=== PATIENT | male | born 1945 | race Caucasian/White ===

== ENCOUNTER 2020-08-22 13:20 | Outpatient (CLI) | payer MEDICARE, OTHER, SELFPAY ==
--- NOTE | 2020-08-22 13:24 | ECG_ITS ---
Measurements Intervals [place] Rate: 75 P: 7 NV: 232 QRS: -59 QRSD: 80 T: -23 QT: 346 QTc: 387 Interpretive Statements SINUS RHYTHM WITH FIRST DEGREE AV BLOCK CONSIDER RIGHT VENTRICULAR HYPERTROPHY LOW QRS VOLTAGE IN PRECORDIAL LEADS BORDERLINE ST-T WAVE ABNORMALITY- INFERIOR LEADS BASELINE ARTIFACT- I, II, III, AVR, AVL, AVF, V1-V2 ABNORMAL ECG Electronically Signed On 08-22-2020 13:49:29 TELEPHONE SALES AGENT by Danny Oleary D.O.
[2020-08-22 14:07] LABS: Anion Gap 9 mmol/L (8-16); Blood Urea Nitrogen 28 mg/dL (9-20); Calcium 9.7 mg/dL (8.4-10.2); Carbon Dioxide 28 mmol/L (22-30); Chloride 103 mmol/L (98-107); Estimated Glomerular Filt Rate 54; Glucose 133 mg/dL (75-110); Potassium 4.8 mmol/L (3.4-5.0); Sodium 140 mmol/L (137-145)
== END 2020-08-22 13:21 | disposition home or self-care (01) ==
LOC: ANHSURGERY 13:24
PROVIDERS: Anesthesiology; PCP Family Medicine; Visit Provider Urology
DX: Z01.812 Encounter for preprocedural laboratory examination (principal); N40.0 Benign prostatic hyperplasia without lower urinary tract symptoms; Z86.79 Personal history of other diseases of the circulatory system; E11.9 Type 2 diabetes mellitus without complications; I44.0 Atrioventricular block, first degree
CPT/HCPCS: 36415; 80048; 87077; 87086; 87088; 93005

== ENCOUNTER → 2020-08-23 00:57 | Outpatient (CLI) | payer MEDICARE, OTHER, SELFPAY ==
[2020-08-23 19:48] LABS: SARS-CoV-2 RNA PCR Negative
== END ==
PROVIDERS: PCP Family Medicine; Visit Provider Urology
DX: Z01.812 Encounter for preprocedural laboratory examination (principal); Z20.822 Contact with and (suspected) exposure to COVID-19
CPT/HCPCS: C9803; U0003; U0005

== ENCOUNTER 2020-08-27 01:32 | Day surgery (SDC) | payer MEDICARE, OTHER, SELFPAY ==
[2020-08-15 15:11] VITALS: BMI 24.6
[2020-08-27] VITALS (8 sets, daily range): BP systolic 116–164; BP diastolic 69–89; PULSE 53–68; RESP 12–18; TEMP 36.4; O2SAT 98–100
[2020-08-27] MEDS: LACTATED RINGERS 1,000 ML 30 ML IV CONT (12:40)
[2020-08-27 12:44] LABS: Glucose Point of Care 115 (65-105)
[2020-08-27] MEDS: ACETAMINOPHEN 500 MG TABLET 1000 MG PO (12:46)
--- NOTE | 2020-08-27 13:26 | WPDANESEPPF ---
Anes - Initial Pre Proc Eval Procedure: Operation Date: 08/27/20 14:00 Proposed Procedures p Urolift - Aga Medina MD Date/Time: 08/27/20 13:26 Surgeon: Aga Medina MD Pre Op Diagnosis: BPH Patient Data Age: 75 Gender: M Height: 5 ft 10 in Weight: 77.6 kg Last Vital Signs Temp 97.6 F 08/27/20 13:03 Pulse 68 08/27/20 13:03 Resp 18 08/27/20 13:03 BP 116/69 08/27/20 13:03 Pulse Ox 100 08/27/20 13:03 Allergies Allergy/AdvReac Type Severity Reaction Status Date / Time No Known Allergies Allergy Verified 08/27/20 13:00 Home Medications Medication Instructions Recorded Confirmed Type acetaminophen-codeine 1 - 2 tablet PO Q4-6H PRN 08/15/20 08/27/20 History aspirin 325 mg PO DAILY 08/15/20 08/27/20 History atorvastatin 10 mg PO HS 08/15/20 08/27/20 History dutasteride 0.5 mg PO HS 08/15/20 08/27/20 History empagliflozin [Jardiance] 25 mg PO HS 08/15/20 08/27/20 History eszopiclone 3 mg PO HS 08/15/20 08/27/20 History gabapentin 300 mg PO HS 08/15/20 08/27/20 History liraglutide [Victoza 2-Matt] 0.6 mg SUBCUT QAM 08/15/20 08/27/20 History lisinopril 5 mg PO HS 08/15/20 08/27/20 History meclizine 25 mg PO BID PRN 08/15/20 08/27/20 History metformin 1,000 mg PO BID 08/15/20 08/27/20 History metoprolol succinate 25 mg PO HS 08/15/20 08/27/20 History omeprazole 20 mg PO HS 08/15/20 08/27/20 History tamsulosin 0.4 mg PO HS 08/15/20 08/27/20 History testosterone cypionate 200 mg IM [id number] 08/15/20 08/27/20 History tizanidine 4 mg PO BID PRN 08/15/20 08/27/20 History Laboratory Tests 08/27/20 12:40 POC Capillary Glucose 115 mg/dl H mg/dl (65-105) Patient hx anesthesia problems: none Family hx anesthesia problems: none PMFSH Past Medical History Medical History (Updated 08/27/20 @ 13:26 by Vic Prescott MD) Atrial fibrillation Diabetes GERD (gastroesophageal reflux disease) Hyperlipidemia Hypertension Family History Family History (Updated 02/06/16 @ 12:36 by DOCTOR UNKNOWN) Other Diabetes mellitus Family history of malignant neoplasm Social History Social History Smoking status: Never smoker Substance use: never Living arrangements: with family Spiritual care concerns: No Anes - Eval Final PreProcedure Day of Procedure 08/27/20 13:26 Patient weight: overweight Heart: irregular rhythm Lungs: clear to auscultation Airway: Mallampati scale class 1 Neurological: alert and oriented Last oral intake: >/= 8 hours ASA classification: III Emergent: no Anesthetic plan: proceed Anesthesia type and monitoring: general LMA and standard monitoring Informed Consent: The patient's anesthetic plan and its attendant risks and benefits were discussed with the patient/family/POA. Questions were solicited and answers provided to the satisfaction of the patient/family/POA.
--- NOTE | 2020-08-27 15:03 | WPDHPUPDATE1 ---
History and Physical Update Update Date/Time: 08/27/20 15:03 History and Physical has been reviewed, including an updated exam of the patient. There are NO changes in the patient's condition. Risks, benefits, and alternatives have been discussed and questions answered. Patient agrees to proceed with procedure.
[2020-08-27] MEDS: ceFAZolin 2 GM/D5W 50 ML 2 GM/50 ML BAG IVPB (15:10)
[2020-08-27] MEDS: LIDOCAINE HCL 2% GEL UROJET 10 ML PKG MUCOUS MEM (15:16)
--- NOTE | 2020-08-27 15:41 | P.OP_ITS ---
Procedure Note - Detailed Date of procedure: 08/27/20 Pre-op diagnosis: BPH Post-op diagnosis: same Procedure performed: Cystoscopy, Urolift x4 Description of procedure: Informed consent was obtained. Patient taken the operating room. He was given preoperative IV antibiotics. He was induced anesthesia. His placed in dorsal supine position. He was prepped and draped in normal sterile fashion. We inserted a 20 F cystoscope through the urethra into the bladder the bladder was trabeculated without masses noted. The patient bilateral orthotopic ureteral orifices. The patient did have bilobar prostatic hyperplasia. We then identified the 1st treatment site the patient's left side 2cm distal to the bladder neck. The distal tip of the delivery bites was then angled laterally [id number] at this point to compress the lateral lobe. The trigger was pulled thereby deploying the needle containing the implant through the prostate the prostate was retracted allowing the implant be delivered in the capsular surface of the prostate. The implant was then tensioned to shrink capsular seeding removing any slack monofilament. The device was then angled back towards the midline and advanced slowly until cystoscopic evaluation identified centering of the monofilament. The regional and piece was then affixed to the monofilament tailoring the size of the implant. Excess filament was then severed. The delivery [place] was then r eadvanced into the bladder. We then performed identical procedure on the right side 2cm from the bladder neck. Two additional implants were placed at the level of the verumontanum on the right and left side, these implants did sit in a very similar location to the proximal implants allowing for a stacking results. We then inspected with the visual special warfare boat operator and at this point with low- flow there was a nice anterior channel. The 4 urethral in pieces were identified in sat nicely. We then inserted a flexible cystoscope and retroflexed noting no tabs in the bladder. As there was minimal hematuria, a Victoria catheter was not placed. Patient was taken to the recovery room stable. Anesthesia: GLMA Surgeon: Aga Medina MD Drains: No Packing: No Pathology: none sent Complications: No immediate complications Condition: stable Disposition: PACU
[2020-08-27 15:57] LABS: Glucose Point of Care 84 (65-105)
[2020-08-27] MEDS: oxyCODONE HCL (*CRX) 5 MG TAB IR PO (16:58)
== END 2020-08-27 17:43 | disposition home or self-care (01) ==
PROVIDERS: Family Provider Family Medicine; PCP Family Medicine; Visit Provider Urology
PROC: 0T7D8DZ Dilation of Urethra with Intraluminal Device, Via Natural or Artificial Opening Endoscopic (ICD-10-PCS; CPT 52441; principal; 2020-08-27 14:00)
DX: N40.1 Benign prostatic hyperplasia with lower urinary tract symptoms (principal); R39.11 Hesitancy of micturition; R39.15 Urgency of urination; R35.1 Nocturia; I48.91 Unspecified atrial fibrillation; I10 Essential (primary) hypertension; E78.5 Hyperlipidemia, unspecified; E11.9 Type 2 diabetes mellitus without complications; K21.9 Gastro-esophageal reflux disease without esophagitis; Z79.84 Long term (current) use of oral hypoglycemic drugs; Z79.82 Long term (current) use of aspirin
CPT/HCPCS: C9740; 36415; 51702; 80048; 82948; 87077; 87086; 87088; 93005; 99283; A9270; C9803; J0690; J2405; J2704; J3010; J7120; L8699; U0003; U0005

== ENCOUNTER 2020-08-27 21:07 | Emergency (ER) | payer MEDICARE, OTHER, SELFPAY ==
[2020-08-27 21:10] VITALS: BP 166/91; PULSE 84; RESP 16; TEMP 37; O2SAT 98
--- NOTE | 2020-08-27 21:39 | ED.GENADULT ---
HPI - General Adult General Chief complaint: Urogenital-Male Stated complaint: decreased urinary output Time Seen by Provider: 08/27/20 21:21 History of Present Illness HPI narrative: Patient is a 75-year-old gentleman who presents the emergency department with chief complaint of unable to urinate. Patient reports that earlier today he had a UroLift done by Dr. Medina and was able to urinate after the procedure. Patient went home continue to drink fluids and this evening has been unable to urinate. The patient reports that he has a lot of pressure in his suprapubic area and states that he has blood in his urine. Related Data Home Medications Medication Instructions Recorded Confirmed Jardiance 25 mg PO HS 08/15/20 08/27/20 Victoza 2-Matt 0.6 mg SUBCUT QAM 08/15/20 08/27/20 acetaminophen-codeine 1 - 2 tablet PO Q4-6H PRN 08/15/20 08/27/20 aspirin 325 mg PO DAILY 08/15/20 08/27/20 atorvastatin 10 mg PO HS 08/15/20 08/27/20 dutasteride 0.5 mg PO HS 08/15/20 08/27/20 eszopiclone 3 mg PO HS 08/15/20 08/27/20 gabapentin 300 mg PO HS 08/15/20 08/27/20 lisinopril 5 mg PO HS 08/15/20 08/27/20 meclizine 25 mg PO BID PRN 08/15/20 08/27/20 metformin 1,000 mg PO BID 08/15/20 08/27/20 metoprolol succinate 25 mg PO HS 08/15/20 08/27/20 omeprazole 20 mg PO HS 08/15/20 08/27/20 tamsulosin 0.4 mg PO HS 08/15/20 08/27/20 testosterone cypionate 200 mg IM [id number] 08/15/20 08/27/20 tizanidine 4 mg PO BID PRN 08/15/20 08/27/20 Allergies Allergy/AdvReac Type Severity Reaction Status Date / Time No Known Allergies Allergy Verified 08/27/20 13:00 Review of Systems Review of Systems: Narrative: A 10 system review of systems was completed on the patient and is negative except for what is stated in the HPI. Nursing and ancillary documentation was reviewed. [facility] Past Medical History Medical History Atrial fibrillation Diabetes GERD (gastroesophageal reflux disease) Hyperlipidemia Hypertension Family History Family History Other Diabetes mellitus Family history of malignant neoplasm Social History Social History Smoking status: Never smoker Substance use: never Spiritual care concerns: No Exam Narrative: Exam Narrative: GENERAL: Well-appearing, well-nourished, and in no acute distress. HEAD: Normocephalic, atraumatic. EYES: PERRLA and EOMI. ENT: Nares clear, no rhinorrhea or epistaxis. Mucous membranes moist. NECK: Supple. CHEST: Clear to auscultation. No respiratory distress. HEART: Regular rate and rhythm. No murmur heard. Normal peripheral pulses. ABDOMEN: Soft, nontender, nondistended, normal active bowel sounds. EXTREMITIES: Normal range of motion. No edema. : There is a Victoria catheter in place SKIN: Warm, dry, no rash. NEURO: No focal deficits. Alert and oriented x3. PSYCH: Normal mood and affect. Course Course Emergency Course: The patient currently is feeling much better with the Victoria catheter in place. Patient still has hematuria but is not passing clots. Case was discussed with Dr. Braga who will send a message to the patient's primary urologist the patient is to call his urologist in the morning to schedule a follow-up appointment Vital Signs Vital signs: Vital Signs Temperature 37.0 C 08/27/20 21:10 Pulse Rate 84 08/27/20 21:10 Respiratory Rate 16 08/27/20 21:10 Blood Pressure 166/91 H 08/27/20 21:10 Pulse Oximetry 98 08/27/20 21:10 Temperature 37.0 C 08/27/20 21:10 Pulse Rate 84 08/27/20 21:10 Respiratory Rate 16 08/27/20 21:10 Blood Pressure 166/91 H 08/27/20 21:10 Pulse Oximetry 98 08/27/20 21:10 Medical Decision Making Vital Signs Vital Signs: Vital Signs Temperature 37.0 C 02/17/21 21:10 Pulse Rate 84 08/27/20 21:10 Respiratory Rate 16 08/27/20 21:
[2020-08-27 22:06] VITALS: BP 131/80; PULSE 75; RESP 16; O2SAT 99
--- NOTE | 2020-09-01 11:08 | PC.NURSE ---
LATE ENTRY This note is being entered to document information to the patient's record. The following information was omitted on [08/27/20], by [Edyta Bustamante RN].
== END 2020-08-27 22:10 | disposition home or self-care (01) ==
PROVIDERS: Emergency Provider Emergency Medicine; PCP Family Medicine
DX: R33.9 Retention of urine, unspecified (principal); I48.91 Unspecified atrial fibrillation; E11.9 Type 2 diabetes mellitus without complications; K21.9 Gastro-esophageal reflux disease without esophagitis; E78.5 Hyperlipidemia, unspecified; I10 Essential (primary) hypertension; Z79.82 Long term (current) use of aspirin; Z79.84 Long term (current) use of oral hypoglycemic drugs
CPT/HCPCS: 51702; 99283

== ENCOUNTER 2020-09-09 08:05 | Outpatient (CLI) | payer MEDICARE, OTHER, SELFPAY | END 2020-09-09 08:06 | disposition home or self-care (01) | LOC: ANHAUDIO 08:07 | PROVIDERS: PCP Family Medicine; Visit Provider Otolaryngology | DX: R42 Dizziness and giddiness (principal) | CPT/HCPCS: 92537; 92540; 92546; 92567 ==

== ENCOUNTER 2020-11-03 08:30 | Outpatient (RCR) | payer MEDICARE, OTHER, SELFPAY ==
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
--- NOTE | 2020-10-13 15:24 | PCSTNOTE ---
Pt called and canceled scheduled appointment for tomorrow due to a family emergency. (Sister killed in an auto accident.)
--- NOTE | 2020-11-10 13:25 | PCSTNOTE ---
SPEECH THERAPY DISCHARGE: Attending Provider: Jame Moreno MD Patient: Lety Haddad Date of :1945 Patient has not returned for any further treatments since 11/03/2020, therefore he will be discharged at this time. Patient?s initial visit was on 09/22/2020 11:00 and HE had a total of 2 visits. The goals have been: not met. Thank you for referring this patient to [facility]. Please review, sign, date and return this discharge summary MARISA. I have been updated about the patient's current status and I agree with discharge from the above service at this time. Referring Physician Date
== END 2020-11-12 14:42 | disposition home or self-care (01) ==
LOC: ANHST 08:30
PROVIDERS: PCP Family Medicine; Referring Provider Otolaryngology; Visit Provider Otolaryngology
DX: R49.0 Dysphonia (principal)
CPT/HCPCS: 92524; 92526; 92597; 92610

== ENCOUNTER 2021-05-28 11:07 | Outpatient (CLI) | payer MEDICARE, OTHER, SELFPAY ==
[2021-05-28 11:59] LABS: Alanine Aminotransferase 20 U/L (4-50); Albumin Level 4.6 g/dL (3.5-5.1); Alkaline Phosphatase 67 U/L (38-126); Anion Gap 7 mmol/L (8-16); Aspartate Amino Transferase 22 U/L (17-59); Bilirubin,Total 0.5 mg/dL (0.2-1.3); Blood Urea Nitrogen 33 mg/dL (9-20); Calcium 10.5 mg/dL (8.4-10.2); Carbon Dioxide 29 mmol/L (22-30); Chloride 100 mmol/L (98-107); Estimated Glomerular Filt Rate 54; Glucose 128 mg/dL (65-110); Potassium 5.5 mmol/L (3.4-5.0); Sodium 136 mmol/L (137-145)
[2021-05-28 12:04] LABS: Basophils Absolute Auto 0.1 K/mm3 (0.0-0.1); Basophils Percent Auto 0.6 % (0.2-1.2); Eosinophils Absolute Auto 0.2 K/mm3 (0-0.3); Eosinophils Percent Auto 2.7 % (0-4.4); Hemoglobin 15.1 g/dL (14.0-18.0); Immature Granulocyte Absolute 0.05 K/mm3 (0.00-0.031); Immature Granulocyte Percent A 0.6 % (0-0.5); Lymphocytes Absolute Auto 1.87 K/mm3 (0.9-3.2); Lymphocytes Percent Auto 23.8 % (18.3-44.2); Mean Corpuscular HGB Conc 32.8 g/dl (32-36); Mean Corpuscular Hemoglobin 29.2 pg (26-34); Mean Corpuscular Volume 88.8 fl (80-100); Mean Platelet Volume 10.5 fl (7.4-10.4); Monocytes Absolute Auto 0.9 K/mm3 (0.1-0.6); Monocytes Percent Auto 11.8 % (2.6-8.5); Neutrophils Absolute Auto 4.8 K/mm3 (1.3-6.7); Neutrophils Percent Auto 60.5 % (45.5-73.1); Platelet Count Result 264 k/mm3 (150-375); Red Blood Count 5.18 M/mm3 (4.6-6.20); Red Cell Distribution Width 14.6 % (11.5-14.5); White Blood Count 7.9 K/mm3 (4.5-10.0)
== END 2021-05-28 11:08 | disposition home or self-care (01) ==
LOC: ANHLAB 11:10
PROVIDERS: PCP Family Medicine; Visit Provider Family Medicine
DX: E11.21 Type 2 diabetes mellitus with diabetic nephropathy (principal)
CPT/HCPCS: 36415; 80053; 85025

== ENCOUNTER → 2021-08-24 09:57 | Outpatient (CLI) | payer MEDICARE, OTHER, SELFPAY ==
--- NOTE | ~2021-08-24 | MR_ITS ---
EXAMINATION: MR brain/brain stem wo/w con DATE: 08/24/2021 10:56 INDICATION: New-onset headache. TECHNIQUE: Magnetic resonance imaging (MRI) of the brain and brainstem was performed without and with 15 mL MultiHance intravenous contrast. Sequences included sagittal and axial T1-weighted FSE, axial diffusion-weighted FS EPI, axial T2*-weighted GRE, axial T2-weighted FLAIR Propeller, and axial T2-we ighted Propeller. Postcontrast sequences included axial and coronal T1-weighted FSE. Apparent diffusi on coefficient (ADC) maps were created. COMPARISON: None. FINDINGS: There are scattered areas of nonspecific increased T2-weighted signal intensity in the cere bral white matter and barney. 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 There is n o intracranial hemorrhage, acute infarction, or abnormal intracranial mass lesion. The ventricles are normal in size. There is mild mucosal thickening in the ethmoid sinuses. The mastoid air cells are n ormal. There are likely changes of ocular lens replacement surgeries. IMPRESSION: 1. Mild nonspecific cerebral white matter disease and pontine disease, which likely represents chroni c small vessel ischemic disease. Reviewed, dictated and finalized at location A. EL MACHINIST IMPRESSION: 1. Mild nonspecific cerebral white matter disease and pontine disease, which abdoul lewis represents chronic small vessel ischemic disease.
[2021-08-24 10:25] LABS: Estimated Glomerular Filt Rate > 60
== END ==
PROVIDERS: Visit Provider Psychiatry & Neurology Neurology
DX: R51.9 Headache, unspecified (principal); R90.82 White matter disease, unspecified; G37.8 Other specified demyelinating diseases of central nervous system
CPT/HCPCS: 70553; A9577

== ENCOUNTER 2022-09-29 09:16 | Outpatient (CLI) | payer MEDICARE, OTHER, SELFPAY ==
--- NOTE | 2022-09-29 09:57 | ECG_ITS ---
Measurements Intervals [place] Rate: 55 P: 2 ID: [id number] QRS: -63 QRSD: 86 T: -55 QT: 395 QTc: 378 Interpretive Statements SINUS BRADYCARDIA WITH FIRST DEGREE AV BLOCK RSR' IN V1 OR V2, CONSIDER RIGHT VENTRICULAR HYPERTROPHY OR RIGHT VCD LOW QRS VOLTAGE IN PRECORDIAL LEADS BORDERLINE ST-T WAVE ABNORMALITY- INFERIOR LEADS BASELINE ARTIFACT- I, II, III, AVR, AVL, AVF, V1-V6 BORDERLINE ECG COMPARED TO ECG 08/22/2020 14:07:00 SINUS BRADYCARDIA NOW PRESENT Electronically Signed On 09-29-2022 12:01:23 CDT by Danny Oleary D.O.
[2022-09-29 10:48] LABS: Anion Gap 6 mmol/L (8-16); Blood Urea Nitrogen 26 mg/dL (9-20); Calcium 9.2 mg/dL (8.4-10.2); Carbon Dioxide 28 mmol/L (22-30); Chloride 104 mmol/L (98-107); Estimated Glomerular Filt Rate 54; Glucose 123 mg/dL (65-110); Sodium 138 mmol/L (137-145)
== END 2022-09-29 09:17 | disposition home or self-care (01) ==
LOC: ANHSURGERY 09:20
PROVIDERS: Anesthesiology; PCP Family Medicine; Visit Provider Urology
DX: Z01.812 Encounter for preprocedural laboratory examination (principal); Z01.810 Encounter for preprocedural cardiovascular examination; E11.9 Type 2 diabetes mellitus without complications; I44.0 Atrioventricular block, first degree; R00.1 Bradycardia, unspecified
CPT/HCPCS: 36415; 80048; 93005

== ENCOUNTER 2022-10-01 16:07 | Observation (INO) | payer MEDICARE, OTHER, SELFPAY ==
--- NOTE | 2022-09-23 14:19 | PM.IMHP ---
H&P: HPI History of Present Illness Date/Time: 09/23/22 14:19 Chief Complaint: Difficulty urinating Narrative: 77-year-old gentleman who I have known for over 20 years with a history of bladder outlet obstructive voiding symptoms. He has both obstructive and irritable voiding symptoms. He has undergone multiple attempts at medical management and several minimally invasive procedures in the past. Most recently he has failed a Uro left. He is having marked obstructive symptoms with hesitancy intermittency straining urea and a sense of incomplete emptying. After discussion of therapeutic options he has now elected to proceed with TURP. He is aware the risk of this including, but not limited to, adverse cardiopulmonary events, postoperative hematuria and persistent voiding symptoms. Review of Systems Cardiovascular: Cardiovascular: Denies chest pain, Denies lightheadedness, Denies palpitations and Denies dyspnea Respiratory: Respiratory: Denies dyspnea Gastrointestinal: Gastrointestinal: Denies diarrhea, Denies nausea and Denies vomiting Genitourinary: Genitourinary: Denies hematuria and Denies dysuria Endocrine: Endocrine: Denies palpitations PMFSH Past Medical History Medical History Atrial fibrillation Diabetes GERD (gastroesophageal reflux disease) Hyperlipidemia Hypertension Family History Family History Other Diabetes mellitus Family history of malignant neoplasm Social History Social History Smoking status: Never smoker Substance use: never Living arrangements: with family Spiritual care concerns: No Meds Home Medications and Allergies Home Medications Medication Instructions Recorded Confirmed Type acetaminophen 300 mg-codeine 30 mg 1 - 2 tablet PO Q4-6H PRN Pain 08/15/20 08/27/20 History tablet aspirin 325 mg tablet,delayed 325 mg PO DAILY 08/15/20 08/27/20 History release atorvastatin 10 mg tablet 10 mg PO HS 08/15/20 08/27/20 History dutasteride 0.5 mg capsule 0.5 mg PO HS 08/15/20 08/27/20 History empagliflozin 25 mg tablet 25 mg PO HS 08/15/20 08/27/20 History (Jardiance) eszopiclone 3 mg tablet 3 mg PO HS 08/15/20 08/27/20 History gabapentin 300 mg capsule 300 mg PO HS 08/15/20 08/27/20 History liraglutide 0.6 mg/0.1 mL (18 mg/3 0.6 mg subcut QAM 08/15/20 08/27/20 History mL) subcutaneous pen injector (Victoza 2-Matt) lisinopril 5 mg tablet 5 mg PO HS 08/15/20 08/27/20 History meclizine 25 mg tablet 25 mg PO BID PRN Dizziness 08/15/20 08/27/20 History metformin 500 mg tablet,extended 1,000 mg PO BID 08/15/20 08/27/20 History release 24 hr metoprolol succinate 25 mg 25 mg PO HS 08/15/20 08/27/20 History tablet,extended release 24 hr omeprazole 20 mg capsule,delayed 20 mg PO HS 08/15/20 08/27/20 History release tamsulosin 0.4 mg capsule 0.4 mg PO HS 08/15/20 08/27/20 History testosterone cypionate 200 mg/mL 200 mg IM [id number] 08/15/20 08/27/20 History intramuscular oil tizanidine 4 mg tablet 4 mg PO BID PRN Muscle Spasm 08/15/20 08/27/20 History Allergies Allergy/AdvReac Type Severity Reaction Status Date / Time No Known Allergies Allergy Verified 08/27/20 13:00 Exam Const: General: no acute distress Resp: Effort & Inspection: normal respiratory effort GI: Inspection: non-distended GI Palp: No abdominal tenderness and No Guarding due to palpation present (GI) Auscultation: normal bowel sounds Assessment and Plan Assessment and plan (1) BPH loc w urin obs/LUTS: Code(s): N40.1 - Benign prostatic hyperplasia with lower urinary tract symptoms Status: Acute Assessment and Plan: TURP
[2022-09-29 09:20] VITALS: BP 124/65; PULSE 57; RESP 16; TEMP 36.2; O2SAT 97; BMI 24.3
--- NOTE | 2022-09-29 09:40 | PC.NURSE ---
Report to the Outpatient Waiting Room, entrance under the green pavilion located off [facility], at time 8:30 on date 09/30/22. Planned Procedure Time: 10:30. Time changes happen often and if your time is changed the preop area will call you the afternoon before. - You and your visitor will be asked to self-screen and do not enter if you have any COVID symptoms. - Only one visitor is requested with a max of two and NO children visitors are allowed at this time. - The patient visitor may be requested to leave or wait in car when not with patient due to distancing restrictions. - A mask is optional within the hospital at this time. Patients may have clear liquids (water, carbonated beverages, clear teas, apple juice) until 3 hours prior to surgery (7:30) with a maximum of 20 ounces. - No food from midnight until time of surgery Take the following medications with a SIP of water the morning of surgery: NONE DO NOT STOP ANY OF YOUR OTHER PRESCRIPTION MEDICATIONS PRIOR TO SURGERY?EXCEPT THE FOLLOWING Medications to discontinue per physician: N/A Date to take last dose: N/A Please no make-up, nail japanese, hairspray, perfume, deodorant, or body powder the day of surgery. No jewelry (including any body piercings) or valuables the day of surgery, leave them at home. Please take a shower or bath the night before, or the morning of, surgery with an antibacterial soap. Wear comfortable, loose fitting clothing. - Jewelry must be removed prior to entering the operating room. Rings and piercings that are not removed may be cut off. - The hospital will not accept responsibility for valuables. - Please leave all valuables, including medications, at home the day of surgery. If you are going home after surgery, a licensed pick up and delivery driver must drive you home. - NO public transportation without another adult if you receive anesthesia. - We recommend that an adult stay with you for 24 hours following discharge. - We also recommend that you do not drive, make important decision, drink alcoholic beverages, or take any drugs that were not prescribed by your health care provider for at least 24 hours after your discharge time. Follow any additional instructions given to you from your surgeon. If you or anyone in your household have experienced Covid symptoms in the past week, please notify your surgeon or the nurse liaison at the phone number below for possible testing. WRITTEN instructions given to YIN MCNEAL and asked if any additional questions and then verbalized understanding. Patient advised to call surgeon office or pre surgery nurse liaison [phone] if any additional questions.
[2022-09-30] VITALS (15 sets, daily range): BP systolic 108–149; BP diastolic 58–80; PULSE 52–78; RESP 10–18; TEMP 35.6–36.9; O2SAT 97–100
--- NOTE | 2022-09-30 05:56 | WPDHPUPDATE1 ---
History and Physical Update Update Date/Time: 09/30/22 05:56 History and Physical has been reviewed, including an updated exam of the patient. There are NO changes in the patient's condition. Risks, benefits, and alternatives have been discussed and questions answered. Patient agrees to proceed with procedure.
--- NOTE | 2022-09-30 09:15 | P.PNAN_ITS ---
Anes - Initial Pre Proc Eval Procedure: Operation Date: 09/30/22 10:30 Proposed Procedures p Trans Urethral Resection Prostate - Norbert Barnes MD Date/Time: 09/30/22 09:15 Surgeon: Norbert Barnes MD Pre Op Diagnosis: bph, abnormal psa Patient Data Age: 77 Gender: M Height: 1.78 m Weight: 76 kg Last Vital Signs Temp 36.1 C L 09/30/22 08:45 Pulse 64 09/30/22 08:45 Resp 16 09/30/22 08:45 BP 108/64 09/30/22 08:45 Pulse Ox 98 09/30/22 08:45 O2 Del Method Room Air 09/30/22 08:45 Allergies Allergy/AdvReac Type Severity Reaction Status Date / Time No Known Allergies Allergy Verified 09/30/22 09:00 Home Medications Medication Instructions Recorded Confirmed Type atorvastatin 10 mg tablet 10 mg PO HS 08/15/20 09/30/22 History empagliflozin 25 mg tablet 25 mg PO HS 08/15/20 09/30/22 History (Jardiance) eszopiclone 3 mg tablet 3 mg PO HS 08/15/20 09/30/22 History gabapentin 300 mg capsule 300 mg PO HS 08/15/20 09/30/22 History liraglutide 0.6 mg/0.1 mL (18 mg/3 0.6 mg subcut QAM 08/15/20 09/30/22 History mL) subcutaneous pen injector (Victoza 2-Matt) lisinopril 5 mg tablet 5 mg PO HS 08/15/20 09/30/22 History metformin 500 mg tablet,extended 1,000 mg PO BID 08/15/20 09/30/22 History release 24 hr metoprolol succinate 25 mg 25 mg PO HS 08/15/20 09/30/22 History tablet,extended release 24 hr omeprazole 20 mg capsule,delayed 20 mg PO HS 08/15/20 09/30/22 History release testosterone cypionate 200 mg/mL 200 mg IM [id number] 08/15/20 09/29/22 History intramuscular oil Patient hx anesthesia problems: none Family hx anesthesia problems: none Results Review: All pre-operative results and documents have been reviewed as part of the pre-operative evaluation. [facility] Past Medical History Medical History Atrial fibrillation Diabetes GERD (gastroesophageal reflux disease) Hyperlipidemia Hypertension Family History Family History Other Diabetes mellitus Family history of malignant neoplasm Social History Social History Smoking status: Never smoker Alcohol intake: current Alcohol use details: 6/YEAR Substance use: never Substance use type: does not use Living arrangements: with family Spiritual care concerns: No Anes - Eval Final PreProcedure Day of Procedure 09/30/22 09:15 Patient weight: normal Heart: regular rate and rhythm Lungs: clear to auscultation Airway: Mallampati scale class II Neurological: alert and oriented Last oral intake: >/= 8 hours ASA classification: III Emergent: no Anesthetic plan: proceed Anesthesia type and monitoring: general LMA and standard monitoring Results Review: All pre-operative results and documents have been reviewed as part of the pre- operative evaluation. Informed Consent: The patient's anesthetic plan and its attendant risks and benefits were discussed with the patient/family/POA. Questions were solicited and answers provided to the satisfaction of the patient/family/POA.
[2022-09-30 09:16] LABS: Glucose Point of Care 131 mg/dl (65-105)
[2022-09-30] MEDS: LACTATED RINGERS 1,000 ML 30 ML IV CONT (09:16)
[2022-09-30] MEDS: ceFAZolin 2 GM/D5W 50 ML 2 GM/50 ML BAG IVPB (09:52)
[2022-09-30] MEDS: LIDOCAINE HCL 2% GEL UROJET 10 ML PKG MUCOUS MEM (10:08)
--- NOTE | 2022-09-30 10:36 | P.OP_ITS ---
Procedure Note - Detailed Date of Procedure 09/30/22 Pre-op Diagnosis BPH Post-op Diagnosis Same Procedure Performed TURP Surgeon Norbert Barnes MD Anesthesia General Description of Procedure The patient was brought to the operative suite where he is prepped and draped in routine sterile fashion while in the dorsal lithotomy position after the uneventful induction of a general LMA anesthetic. A 27 [place] resectoscope sheath was placed into his bladder. He had no urethral strictures. The patient had trilobar hyperplasia with a small median lobe. The bladder itself was endoscopically normal, showing no mucosal hyperemia, intravesical neoplasm or foreign bodies. There was a single, orthotopic ureteral orifice bilaterally. These orifices were identified and preserved throughout the remainder of the procedure. Attention was first turned to resection of the median lobe. This resection was undertaken from the bladder neck to the verumontanum and carried out until the transverse fibers of the bladder neck were identified. The left lateral lobe was then resected starting at the 6 o'clock position, working counter clockwise to the 12 o'clock position. Again, resection was carried out from the bladder neck to the verumontanum until the capsular fibers of the prostate were identified. The right lateral lobe was resected in a similar fashion starting at the 6 o'clock position working clockwise to the 12 o'clock position and carried out until the capsular fibers of the prostate were identified. Apical tissue was then circumferentially resected. All chips were evacuated from the bladder using an SmartHub evacuator. Hemostasis was obtained with electric cautery. The ureteral orifices were again inspected and found to be without injury. Estimated blood loss throughout this procedure was 30cc. The patient was taken to recovery room having tolerated this well. Estimated Blood Loss 30 Drains Yes Packing No Pathology None sent Complications No immediate complications Condition Stable
[2022-09-30 11:02] LABS: Glucose Point of Care 140 mg/dl (65-105)
[2022-09-30] MEDS: HYOSCYAMINE SULFATE 0.125 MG TABLET SUBLINGUAL ×2 (11:41→19:40)
[2022-09-30 16:27] LABS: Glucose Point of Care 93 mg/dl (65-105)
[2022-09-30] MEDS: DEXTROSE 5%/LACTATED RINGERS 1,000 ML 125 ML IV CONT (16:31)
[2022-09-30] MEDS: metFORMIN HCL XR 500 MG TAB.SR.24H 1000 MG PO (17:11)
[2022-09-30] MEDS: ceFAZolin 1 GM/NS 50 ML 1 GM/50 ML BAG IVPB (17:11)
[2022-09-30] MEDS: DOCUSATE SODIUM 100 MG CAPSULE PO (17:11)
[2022-09-30] MEDS: HYDROcodone/acetaminophen (*CRX) 5-325 MG TABLET 1 TAB PO (19:41)
[2022-09-30] MEDS: EMPAGLIFLOZIN 25 MG TABLET PO (19:59)
[2022-09-30] MEDS: PANTOPRAZOLE 40 MG TABLET PO (19:59)
[2022-09-30] MEDS: lisinopriL 5 MG TABLET PO (19:59)
[2022-09-30] MEDS: ATORVASTATIN 10 MG TABLET PO (19:59)
[2022-09-30] MEDS: GABAPENTIN 300 MG CAPSULE PO (19:59)
[2022-09-30] MEDS: METOPROLOL SUCCINATE EXT REL 25 MG TABCR PO (20:00)
[2022-09-30 20:47] LABS: Glucose Point of Care 172 mg/dl (65-105)
[2022-10-01 02:10] VITALS: BP 109/55; PULSE 80; RESP 16; TEMP 36.8; O2SAT 94
[2022-10-01] MEDS: ceFAZolin 1 GM/NS 50 ML 1 GM/50 ML BAG IVPB (02:21)
[2022-10-01 06:10] VITALS: BP 139/71; PULSE 81; RESP 16; TEMP 37; O2SAT 97
[2022-10-01 06:29] LABS: Hematocrit 42.1 % (42.0-52.0); Hemoglobin 13.3 g/dL (14.0-18.0)
[2022-10-01 06:45] LABS: Anion Gap 9 mmol/L (8-16); Blood Urea Nitrogen 22 mg/dL (9-20); Calcium 8.8 mg/dL (8.4-10.2); Carbon Dioxide 23 mmol/L (22-30); Chloride 106 mmol/L (98-107); Estimated CRCL calculation 42 ml/min; Estimated Glomerular Filt Rate 49; Glucose 116 mg/dL (65-110); Potassium 4.3 mmol/L (3.4-5.0); Sodium 138 mmol/L (137-145)
--- NOTE | 2022-10-01 06:58 | WPDUROPN2 ---
Progress Note: A&P Assessment and Plan (1) BPH loc w urin obs/LUTS: Code(s): N40.1 - Benign prostatic hyperplasia with lower urinary tract symptoms Status: Acute Assessment and Plan: Doing well POD #1 - urine clear. Catheter out for voiding trial this morning. Subjective Subjective Date/Time Seen: 10/01/22 06:58 POD #1 TURP - comfortable, doing well Review of Systems Cardiovascular: Cardiovascular: Denies chest pain, Denies lightheadedness, Denies palpitations and Denies dyspnea Respiratory: Respiratory: Denies dyspnea Gastrointestinal: Gastrointestinal: Denies diarrhea, Denies nausea and Denies vomiting Genitourinary: Genitourinary: Denies hematuria and Denies dysuria Endocrine: Endocrine: Denies palpitations Exam Const: General: no acute distress Resp: Effort & Inspection: normal respiratory effort GI: Inspection: non-distended GI Palp: No abdominal tenderness and No Guarding due to palpation present (GI) Auscultation: normal bowel sounds Objective Data Vital Signs Vital Signs: Vital Signs - 24 hr 09/30/22 08:45 09/30/22 10:40 09/30/22 10:55 Temperature 96.9 F L 98.5 F Pulse Rate 64 60 57 L Respiratory Rate 16 16 10 L Blood Pressure 108/64 127/80 141/70 H Pulse Oximetry 98 98 100 Oxygen Delivery Room Air Simple Face Mask Simple Face Mask Oxygen Flow Rate 6 6 09/30/22 11:10 09/30/22 11:25 09/30/22 11:40 Temperature Pulse Rate 54 L 54 L 64 Respiratory Rate 10 L 10 L 17 Blood Pressure 144/77 H 145/76 H 149/78 H Pulse Oximetry 100 100 99 Oxygen Delivery Room Air Room Air Room Air Oxygen Flow Rate 09/30/22 11:55 09/30/22 12:10 09/30/22 12:45 Temperature 96.2 F L Pulse Rate 58 L 56 L 52 L Respiratory Rate 16 16 16 Blood Pressure 144/76 H 136/76 141/70 H Pulse Oximetry 100 100 100 Oxygen Delivery Room Air Room Air Oxygen Flow Rate 09/30/22 12:40 09/30/22 13:30 09/30/22 14:30 Temperature 96.0 F L 96.9 F L 96.5 F L Pulse Rate 54 L 55 L 54 L Respiratory Rate 18 18 16 Blood Pressure 143/68 H 132/60 125/63 Pulse Oximetry 99 98 99 Oxygen Delivery Oxygen Flow Rate 09/30/22 19:58 09/30/22 20:00 09/30/22 22:35 Temperature 97.5 F L Pulse Rate 71 71 Respiratory Rate 16 Blood Pressure 126/58 L Pulse Oximetry 99 Oxygen Delivery Room Air Oxygen Flow Rate 09/30/22 23:25 10/01/22 02:10 10/01/22 06:10 Temperature 98.5 F 98.3 F 98.6 F Pulse Rate 78 80 81 Respiratory Rate 18 16 16 Blood Pressure 110/60 109/55 L 139/71 Pulse Oximetry 97 94 97 Oxygen Delivery Oxygen Flow Rate Intake/Output Intake/Output: Intake & Output 09/28/22 09/29/22 09/30/22 10/01/22 23:59 23:59 23:59 23:59 Intake Total 2090 50 Output Total 4500 5 Balance -2409 -2024 Meds/Results Medications: Active Medications Generic Name Dose Route Start Last Admin Trade Name Freq PRN Reason Stop Dose Admin Hydrocodone Bitart/Acetaminophen 1 tab 09/30/22 12:25 09/30/22 19:41 Hydrocodone/Acetaminophen (*Crx) 5-325 Mg Tablet PO 1 tab Q4H PRN Administration Pain Rated 1-6 Atorvastatin Calcium 10 mg 09/30/22 21:00 09/30/22 19:59 Atorvastatin 10 Mg Tablet PO 10 mg HS PIO Administration Cephalexin HCl 500 mg 10/01/22 09:00 Cephalexin 500 Mg Capsule PO QID PIO Dextrose 12.5 gm 09/30/22 10:40 Dextrose 50% 25 Gm/50 Ml Syringe IV PUSH PRN PRN Hypoglycemia Protocol Docusate Sodium 100 mg 09/30/22 17:00 09/30/22 17:11 Docusate Sodium 100 Mg Capsule PO 100 mg BID PIO Administration Empagliflozin 25 mg 09/30/22 21:00 09/30/22 19:59 Empagliflozin 25 Mg Tablet PO 25 mg HS PIO Administration Fentanyl Citrate 25 mcg 09/30/22 09:12 Fentanyl Citrate Inj (*Crx) 100 Mcg/2 Ml Vial IV PUSH Q2M PRN Pain Gabapentin 300 mg 09/30/22 21:00 09/30/22 19:59 Gabapentin 300 Mg Capsule PO 300 mg HS PIO Administration Glucagon 1 mg 09/30/22 10:40
[2022-10-01] MEDS: CEPHALEXIN 500 MG CAPSULE PO ×2 (08:15→12:05)
[2022-10-01] MEDS: metFORMIN HCL XR 500 MG TAB.SR.24H 1000 MG PO (08:15)
[2022-10-01] MEDS: DOCUSATE SODIUM 100 MG CAPSULE PO (08:15)
[2022-10-01] MEDS: HYDROcodone/acetaminophen (*CRX) 5-325 MG TABLET 1 TAB PO ×2 (08:30→14:50)
[2022-10-01 09:12] LABS: Glucose Point of Care 159 mg/dl (65-105)
[2022-10-01 10:10] VITALS: BP 96/58; PULSE 74; RESP 14; O2SAT 97
[2022-10-01 11:28] LABS: Glucose Point of Care 256 mg/dl (65-105)
[2022-10-01 13:42] VITALS: BP 112/76; PULSE 63; RESP 17; TEMP 36.5; O2SAT 100
[2022-10-01 14:35] VITALS: BP 108/59; PULSE 86; RESP 16; O2SAT 84
[2022-10-01 14:40] VITALS: BP 108/59
--- NOTE | 2022-10-01 16:34 | PM.DS ---
DS: Admitting Diagnosis Discharge Date 10/01/22 Admitting Diagnosis BPH DS: Summary Hospital Course Hospital Course: This patient with longstanding prostatism refractory for medical management was admitted on the morning of his planned TURP. The procedure was undertaken on that same day in an uneventful fashion. His post-operative course was, likewise, uneventful. On the evening of the procedure he was tolerating a diet. On POD#1 his urine was clear on CBI. The urine remained clear and, therefore, the catheter was removed late morning. The patient was observed for several hours, until he demonstrated he could void effectively without significant hematuria. He was discharged with careful instruction on limiting physical activity x2 weeks and plans to f/ in 2-3 weeks. At discharge he was comfortable and tolerating a diet. Time Spent with Patient Time attestation: Total time spent providing and/or coordinating discharge services: DS: Data Data Completed and Pending Completed studies during hospitalization: Pending at discharge 09/30/22 10:24 Surgical [PTH] Routine Labs on day of discharge: Labs from last 24 hours 10/01/22 10/01/22 10/01/22 11:21 08:13 06:16 Hgb Hct Sodium 138 Potassium 4.3 Chloride 106 Carbon Dioxide 23 Anion Gap 9 BUN 22 H Creatinine 1.40 H Estim Creat Clear Calc 42 Estimated GFR 49 L Glucose 116 H POC Capillary Glucose 256 H 159 H Calcium 8.8 10/01/22 09/30/22 06:16 20:27 Hgb 13.3 L Hct 42.1 Sodium Potassium Chloride Carbon Dioxide Anion Gap BUN Creatinine Estim Creat Clear Calc Estimated GFR Glucose POC Capillary Glucose 172 H Calcium Discharge Plan Discharge Attending physician on discharge: Norbert Barnes Discharging Clinician: Norbert Barnes Patient Disposition: Home, Self-Care Activity: other - see discharge instructions Diet: other - see discharge instructions Discharge Instructions: 1) Activity: No lifting/straining >15lbs. x2 weeks. 2) Diet: Resume normal pre-admission diet. 3) Follow-up: 2-3 weeks / call office for appointment ([phone]). Stand Alone Forms: General Discharge Instructions Follow-up/Referrals: Norbert Barnes MD [Physician] - Discharge Medications: New hydrocodone-acetaminophen 5-325 mg tablet 1 - 2 tablet PO Q6H PRN (Reason: pain) Qty: 20 0RF cephalexin 500 mg capsule 500 mg PO Q8H Qty: 9 0RF docusate sodium [Colace] 100 mg capsule 100 mg PO DAILY Qty: 30 0RF ondansetron 4 mg tablet,disintegrating 4 mg PO Q8H PRN (Reason: nausea and vomiting) Qty: 10 1RF Continued atorvastatin 10 mg tablet 10 mg PO HS gabapentin 300 mg capsule 300 mg PO HS omeprazole 20 mg capsule,delayed release(DR/EC) 20 mg PO HS lisinopril 5 mg tablet 5 mg PO HS metoprolol succinate 25 mg tablet extended release 24 hr 25 mg PO HS testosterone cypionate 200 mg/mL oil 200 mg IM [id number] metformin 500 mg tablet extended release 24 hr 1,000 mg PO BID eszopiclone 3 mg tablet 3 mg PO HS Victoza 2-Matt 0.6 mg/0.1 mL (18 mg/3 mL) pen injector 0.6 mg SUBCUT QAM Jardiance 25 mg tablet 25 mg PO HS Date of admission: 10/01/22 16:07 Primary Care Provider: Taco,Anuradha Preciado Admitting Provider: Norbert Barnes Attending physician on admission: Norbert Barnes Condition: Stable
== END 2022-10-01 18:15 | disposition home or self-care (01) ==
LOC: ANHSURGERY 16:10 → ANH3MEDSUR 16:10
PROVIDERS: Admitting Provider Urology; PCP Family Medicine; Visit Provider Urology
PROC: 0VT08ZZ Resection of Prostate, Via Natural or Artificial Opening Endoscopic (ICD-10-PCS; CPT 52601; principal; 2022-09-30 10:30)
DX: N40.1 Benign prostatic hyperplasia with lower urinary tract symptoms (principal); R97.20 Elevated prostate specific antigen [PSA]; I48.91 Unspecified atrial fibrillation; E11.9 Type 2 diabetes mellitus without complications; K21.9 Gastro-esophageal reflux disease without esophagitis; I10 Essential (primary) hypertension; Z87.891 Personal history of nicotine dependence; Z79.1 Long term (current) use of non-steroidal anti-inflammatories (NSAID); Z79.82 Long term (current) use of aspirin; Z79.85 Long-term (current) use of injectable non-insulin antidiabetic drugs; Z79.84 Long term (current) use of oral hypoglycemic drugs; Z79.899 Other long term (current) drug therapy
CPT/HCPCS: 52601; 36415; 51720; 80048; 82948; 85014; 85018; 88305; 99199; A9270; C1758; J0690; J2405; J2704; J3010; J7120; J7121

== ENCOUNTER 2022-11-18 08:50 | Outpatient (CLI) | payer MEDICARE, OTHER, SELFPAY ==
--- NOTE | ~2022-11-18 | XR_ITS ---
Supine and upright views of the abdomen Clinical history: Microhematuria Findings: Bowel gas pattern is nonspecific. No evidence for obstruction or free air. No abnormal mass lesion or calcification is seen. Osseous structures are intact. Impression: No significant abnormality is seen. Reviewed, dictated and finalized at [facility]. Impression: No significant abnormality is seen.
--- NOTE | ~2022-11-18 | CT_ITS ---
CT of the Abdomen and Pelvis: Indication: Microscopic hematuria Technique: 2.5 mm axial scans were obtained through the abdomen and pelvis prior to and following in travenous administration of 130 cc of Omnipaque 350. Dose reduction technique was used on this scan b y utilizing automated exposure control and iterative reconstruction technique. The dose-length produc t (DLP) was 1159.43 mGy-cm. Findings: Scans through the lung bases are unremarkable. The liver, spleen, pancreas, gallbladder, adrenals and kidneys are within normal limits, aside from s mall renal cysts. Visualized ureters are unremarkable. No evidence of aortic aneurysm. No lymphadeno barney. No bowel obstruction or bowel wall thickening. There is no evidence to suggest acute appendicitis. Images through the pelvis were performed. Urinary bladder unremarkable. No pelvic mass seen. No ascit es. Impression: No significant abnormalities seen. No etiology for hematuria identified. Reviewed, dictated and finalized at [facility]. Impression: No significant abnormalities seen. No etiology for hematuria identified.
[2022-11-18 09:16] LABS: Estimated Glomerular Filt Rate 54
== END 2022-11-18 08:51 | disposition home or self-care (01) ==
PROVIDERS: PCP Family Medicine; Visit Provider Urology
DX: R31.29 Other microscopic hematuria (principal)
CPT/HCPCS: 74018; 74178; Q9967

== ENCOUNTER 2023-03-19 03:18 | Inpatient (IN) | payer MEDICARE, OTHER, SELFPAY ==
[2023-03-19] VITALS (11 sets, daily range): BP systolic 129–157; BP diastolic 66–119; PULSE 58–90; RESP 12–20; TEMP 35.8–36.7; O2SAT 96–100; BMI 22.9
--- NOTE | ~2023-03-19 | CT_ITS ---
EXAMINATION: CT thoracic lumbar wo con DATE: 03/19/2023 04:13 INDICATION: Fall. Neck and back pain. TECHNIQUE: Computed tomography (CT) of the thoracic spine was performed without intravenous contrast. Automated exposure control and iterative reconstruction technique were employed. Exam dose: 1875.37 mGy-cm total exam DLP. COMPARISON: None FINDINGS: There is ossification along the anterior longitudinal ligament, diffuse idiopathic skeletal hyperostosis. No fracture or dislocation or bone destruction of the thoracic spine is detected.. There is degenerative spurring of the lumbar vertebral bodies. There is moderately prominent degenera tive disc disease at L4-5 with associated minimal retrolisthesis at L4-5, in addition to L3-4. The re maining lumbar and lumbosacral interspaces are relatively preserved. There is degenerative change at the apophyseal joints particularly lower lumbar and lumbosacral area. No fracture or bone destruction of the lumbar spine is detected. The sacroiliac joints are intact. Diverticulosis of the sigmoid colon is incidentally noted. IMPRESSION: Prominent ossification along the anterior longitudinal ligament, diffuse idiopathic skel etal hyperostosis Degenerative changes of the lumbar spine, most prominent at L4-5 No fracture or dislocation of the thoracic or lumbar spine Reviewed, dictated and finalized at Location [facility]. Reviewed, dictated and finalized at location A. IMPRESSION: Prominent ossification along the anterior longitudinal ligament, d iffuse idiopathic skeletal hyperostosis Degenerative changes of the lumbar spine, most prominent at L4-5 No fracture or dislocation of the thoracic or lumbar spine
--- NOTE | ~2023-03-19 | XR_ITS ---
XR chest 1V portable DATE: 03/19/2023 04:25 INDICATION: Fall. Thoracic pain. TECHNIQUE: Supine AP view COMPARISON: None FINDINGS: Normal heart size. No hilar or mediastinal enlargement. No pulmonary infiltrate or consolid ation, pleural effusion or pulmonary vascular congestion or pneumothorax. Degenerative changes of the thoracic and lumbar spine. IMPRESSION: No active cardiopulmonary disease Reviewed, dictated and finalized at location A.
--- NOTE | ~2023-03-19 | MR_ITS ---
EXAMINATION: MR lumbar spine wo con DATE: 03/20/2023 14:11 INDICATION: Low back pain. Fall. TECHNIQUE: Magnetic resonance imaging (MRI) of the lumbar spine was performed without intravenous con trast. Sequences included sagittal T2-weighted FSE, sagittal T2-weighted FS FSE, sagittal T1-weighted FSE, and axial T2-weighted FSE. COMPARISON: Lumbar spine MRI 12/30/2016 FINDINGS: There is 3 degrees levocurvature of lumbar spine. Vertebral body heights are normal. There is mildly decreased disc height at L3-L4 and severely decreased disc height at L4-L5. The distal spin al cord signal intensity is normal. The conus medullaris is at L1. The following disc levels are spec ifically discussed: L1-L2: The disc does not extend beyond the endplate margin. There is severe bilateral facet joint ost eoarthritis. There is no neural foraminal stenosis. There is no central canal stenosis. L2-L3: The disc does not extend beyond the endplate margin. There is mild bilateral facet joint osteo arthritis. There is no neural foraminal stenosis. There is no central canal stenosis. L3-L4: The disc is bulging. There is mild bilateral facet joint osteoarthritis. There is mild left ne ural foraminal stenosis. There is no central canal stenosis. L4-L5: This is bulging and has an annular fissure. There is moderate bilateral facet joint osteoarthr itis. There is moderate right and mild left neural foraminal stenosis. There is mild central canal st enosis. L5-S1: The disc does not extend beyond the endplate margin. There is severe right and moderate left f acet joint osteoarthritis. There is no neural foraminal stenosis. There is no central canal stenosis. IMPRESSION: 1. Severe spondylosis at L4-L5 and mild spondylosis at other levels, stable from 12/30/2016. Reviewed, dictated and finalized at location E. IMPRESSION: 1. Severe spondylosis at L4-L5 and mild spondylosis at other levels, stable fro 12/30/2016.
--- NOTE | ~2023-03-19 | CT_ITS ---
EXAMINATION: CT cervical spine wo con DATE: 03/19/2023 04:13 INDICATION: Fall. Head injury. Neck pain, back pain. TECHNIQUE: Computed tomography (CT) of the cervical spine was performed without intravenous contrast. Automated exposure control and iterative reconstruction technique were employed. Exam dose: 414.88 mGy-cm total exam DLP. COMPARISON: None FINDINGS: Anterior bridging osteophytes are noted at C3-4 and particularly C4-5, C5-6. There is fusio n at the C6-7 interspace with prominent anterior and posterior spurring. There is fusion at the left C2-C4 apophyseal joints and degenerative change at the remaining bilatera l apophyseal joints. No fracture or dislocation or locked facet or prevertebral soft tissue swelling is detected.. IMPRESSION: Cervical spondylosis; no fracture or dislocation or locked facet Reviewed, dictated and finalized at [facility]. Reviewed, dictated and finalized at location A.
--- NOTE | ~2023-03-19 | MR_ITS ---
EXAMINATION: MR thoracic spine wo con DATE: 03/20/2023 14:11 INDICATION: Thoracic back pain. TECHNIQUE: Magnetic resonance imaging (MRI) of the thoracic spine was performed without intravenous c ontrast. COMPARISON: CT thoracic spine 03/19/2023 FINDINGS: There is kyphosis of thoracic spine. There is mild chronic anterior wedging of T5-T12 verte bral bodies. There is interbody fusion at C6-C7. There is mildly decreased disc height from T4-T5 thr ough T8-T9. There are bridging endplate osteophytes at multiple levels in the spine, consistent with diffuse idiopathic skeletal hyperostosis (DISH). The discs do not extend beyond the endplate margins. There is multilevel facet joint osteoarthritis, severe at multiple levels. There is multilevel mild neural foraminal stenosis. No central canal stenosis. The spinal cord signal intensity is normal. The conus medullaris is at L1. IMPRESSION: 1. Mild thoracic spondylosis. 2. DISH. Reviewed, dictated and finalized at location E.
--- NOTE | ~2023-03-19 | XR_ITS ---
XR pelvis 1-2V DATE: 03/19/2023 04:25 INDICATION: Fall. Back pain. Pelvic injury. TECHNIQUE: AP pelvis COMPARISON: None FINDINGS: Degenerative disc disease is noted at L4-5. Normal alignment at the pubic symphysis and sacroiliac joints. No pelvic fracture or bone destruction is detected. IMPRESSION: Degenerative disc disease at L4-5 No pelvic fracture is detected Reviewed, dictated and finalized at location A.
--- NOTE | ~2023-03-19 | US_ITS ---
EXAMINATION: US carotid duplex BI DATE: 03/19/2023 19:34 INDICATION: Vertigo. Falls. TECHNIQUE: Grayscale, color Doppler, and pulsed Doppler images of the cervical carotid arteries were obtained. The degree of vessel stenosis is placed in one of the following categories: normal, <50%, 5 0-69%, >=70% but less than near-occlusion, near-occlusion, or total occlusion. Note that percent sten osis relative to normal distal artery lumen diameter is indirectly measured from velocity measurement s as described by Jorge, et al. Radiology 2003; 229:340-346. COMPARISON: None. FINDINGS: RIGHT: The right common carotid artery (CCA) peak systolic velocity (PSV) is 96.4 cm/s. The right internal c arotid artery (ICA) PSV is 96.2 cm/s. The right ICA end-diastolic velocity (EDV) is 20.4 cm/s. The [facility] ICA/CCA PSV ratio is 1.0. Grayscale and color Doppler images yield an estimate of 0% diameter red uction from plaque in the ICA. The external carotid artery (ECA) PSV is 95.1 cm/s. There is antegrade flow in the right vertebral artery. LEFT: The left CCA PSV is 84.3 cm/s. The left ICA PSV is 61.6 cm/s. The left ICA EDV is 16.2 cm/s. The left ICA/CCA PSV ratio is 0.7. Grayscale and color Doppler images yield an estimate of 0% diameter reduct ion from plaque in the ICA. The ECA PSV is 60.7 cm/s. There is antegrade flow in the left vertebral a rtery. IMPRESSION: 1. No stenosis in the right internal carotid artery. 2. No stenosis in the left internal carotid artery. Reviewed, dictated and finalized at Location [facility]. Reviewed, dictated and finalized at location A.
--- NOTE | ~2023-03-19 | CT_ITS ---
EXAMINATION: CT brain wo con DATE: 03/19/2023 04:13 INDICATION: Fall. Head injury. Neck pain, back pain. TECHNIQUE: Computed tomography (CT) of the head was performed without intravenous contrast. The mA wa s adjusted according to patient size. Iterative reconstruction technique was employed. Exam dose: 68 1.00 mGy-cm total exam DLP. COMPARISON: August 24, 2021 MRI brain/brainstem FINDINGS: No intracranial mass lesion or hemorrhage or cerebrovascular accident, midline shift or mas s effect is detected. No subdural or epidural hematoma Carotid siphon internal carotid artery calcifications are noted. There is nonspecific diminished atte nuation of the cerebral white matter, likely due to chronic small vessel ischemic changes.. No skull fracture or bone destruction is detected. The paranasal sinuses and mastoid air cells are normally developed and aerated. IMPRESSION: No skull fracture or significant acute intracranial abnormality Reviewed, dictated and finalized at Location [facility]. Reviewed, dictated and finalized at location A.
[2023-03-19] MEDS: methocarbamoL 750 MG TABLET 1500 MG PO (04:25)
[2023-03-19] MEDS: HYDROcodone/acetaminophen (*CRX) 5-325 MG TABLET 1 TAB PO (04:26)
[2023-03-19] MEDS: ACETAMINOPHEN 500 MG TABLET 1000 MG PO (04:27)
--- NOTE | 2023-03-19 04:45 | ED.GENADULT ---
HPI - General Adult General Chief complaint: Fall <Chano Perea MD - Last Filed: 03/19/23 06:37> Stated complaint: fall, neck pain, hit head <Chano Perea MD - Last Filed: 03/19/23 06:37> Time Seen by Provider: 03/19/23 03:37 <Chano Perea MD - Last Filed: 03/19/23 06:37> History of Present Illness HPI narrative: This 77-year-old male presenting ED after a fall. Patient got up to use the restroom. The believes he tripped over something on the floor and turned around landing on his back. He is now complaining of severe pain in his neck and lower back.. There is no pain at rest and only when he moves. Patient states he has a vestibular syndrome causes him to fall frequently. Patient is denying any other complaints at this time. No neurologic symptoms. <Chano Perea MD - Last Filed: 03/19/23 06:37> Related Data Home medications: Home Medications Medication Instructions Recorded Confirmed atorvastatin 10 mg tablet 10 mg PO HS 08/15/20 09/30/22 empagliflozin 25 mg tablet 25 mg PO HS 08/15/20 09/30/22 (Jardiance) eszopiclone 3 mg tablet 3 mg PO HS 08/15/20 09/30/22 gabapentin 300 mg capsule 300 mg PO HS 08/15/20 09/30/22 liraglutide 0.6 mg/0.1 mL (18 mg/3 0.6 mg subcut QAM 08/15/20 09/30/22 mL) subcutaneous pen injector (Victoza 2-Matt) lisinopril 5 mg tablet 5 mg PO HS 08/15/20 09/30/22 metformin 500 mg tablet,extended 1,000 mg PO BID 08/15/20 09/30/22 release 24 hr metoprolol succinate 25 mg 25 mg PO HS 08/15/20 09/30/22 tablet,extended release 24 hr omeprazole 20 mg capsule,delayed 20 mg PO HS 08/15/20 09/30/22 release testosterone cypionate 200 mg/mL 200 mg IM [id number] 08/15/20 09/29/22 intramuscular oil <Chano Perea MD - Last Filed: 03/19/23 06:37> Allergies/adverse reactions: Allergies Allergy/AdvReac Type Severity Reaction Status Date / Time No Known Allergies Allergy Verified 03/19/23 03:27 <Chano Perea MD - Last Filed: 03/19/23 06:37> [facility] Past Medical History Medical History: Medical History Atrial fibrillation Diabetes GERD (gastroesophageal reflux disease) Hyperlipidemia Hypertension <Chano Perea MD - Last Filed: 03/19/23 06:37> Family History Family History: Family History Other Diabetes mellitus Family history of malignant neoplasm <Chano Perea MD - Last Filed: 03/19/23 06:37> Social History Social History: Social History Smoking status: Never smoker Alcohol intake: never Alcohol use details: 6/YEAR Substance use: never Substance use type: does not use Lack of Transportation: No Lack of Food: Never True Current Housing: I Have Housing Concerned About Future Housing: No Difficulty Paying Gas/Electric Bills: No Difficulty Paying for Meds: No Currently Unemployed: No Education: High School Diploma/GED Difficulty w/ Childcare or Family Care: No Living arrangements: with family Spiritual care concerns: No <Chano Perea MD - Last Filed: 03/19/23 06:37> Exam Narrative: APPEARANCE: No apparent distress. Head: atraumatic. EYES: EOMI, NOSE: Atraumatic NECK No midline cervical tenderness, severe pain on movement. hard cervical collar in place midline tenderness reported in the thoracic spine. No step-offs, no bruising. No skin changes. RESPIRATORY: No increased rate of breathing CTAB CARDIOVASCULAR: RRR, ABDOMINAL: Non-distended MUSCULOSKELETAl: No obvious deformities NEURO: Alert. cranial nerves 2-12 intact. sensation light touch, cerebellar function and motor function intact for 4/4 SKIN:: Warm, dry. Normal color PSYCHIATRIC: Normal affect <Chano Perea MD - Last Filed: 03/19/23 06:37> Course Course Emergency Course: Patient resting comfortably. Infor
--- NOTE | 2023-03-19 08:43 | PC.NURSE ---
Pt c/o thoracic pain with movement of 9, without movement 3. Denies any numbness or tingling to lower extremities. Full function of legs & arms
[2023-03-19] MEDS: KETOROLAC 15 MG/ML VIAL (*BKC) IV PUSH (09:20)
[2023-03-19] MEDS: diazePAM INJ (*CRX) 10 MG/2 ML SYRINGE 3 MG IV PUSH (09:20)
--- NOTE | 2023-03-19 09:26 | PC.NURSE ---
Pt feels unable to be discharged at this time. Dr. Valentin informed & pt medicated per order.
--- NOTE | 2023-03-19 10:19 | PC.NURSE ---
RN assisted pt to standing position, pt tolerated well. Trial of sitting in chair started
[2023-03-19 11:31] LABS: Basophils Percent Auto 0.4 % (0.2-1.2); Eosinophils Percent Auto 0.6 % (0-4.4); Hemoglobin 14.4 g/dL (14.0-18.0); Immature Granulocyte Absolute 0.04 K/mm3 (0.00-0.031); Immature Granulocyte Percent A 0.6 % (0-0.5); Lymphocytes Absolute Auto 1.32 K/mm3 (0.9-3.2); Lymphocytes Percent Auto 18.2 % (18.3-44.2); Mean Corpuscular Hemoglobin 30.5 pg (26-34); Mean Corpuscular Volume 95.3 fl (80-100); Mean Platelet Volume 9.6 fl (7.4-10.4); Monocytes Absolute Auto 0.7 K/mm3 (0.1-0.6); Monocytes Percent Auto 9.1 % (2.6-8.5); Neutrophils Absolute Auto 5.2 K/mm3 (1.3-6.7); Neutrophils Percent Auto 71.1 % (45.5-73.1); Platelet Count Result 244 k/mm3 (150-375); Red Blood Count 4.72 M/mm3 (4.6-6.20); Red Cell Distribution Width 12.1 % (11.5-14.5); White Blood Count 7.3 K/mm3 (4.5-10.0)
[2023-03-19] MEDS: SODIUM CHLORIDE 0.9% IV 1,000 ML 125 ML IV CONT ×2 (11:45→14:40)
[2023-03-19 11:58] LABS: Alanine Aminotransferase 24 U/L (6-50); Albumin Level 4.6 g/dL (3.5-5.1); Alkaline Phosphatase 82 U/L (38-126); Anion Gap 10 mmol/L (8-16); Aspartate Amino Transferase 25 U/L (17-59); Bilirubin,Total 0.9 mg/dL (0.2-1.3); Blood Urea Nitrogen 23 mg/dL (9-20); Calcium 9.8 mg/dL (8.4-10.2); Carbon Dioxide 29 mmol/L (22-30); Chloride 100 mmol/L (98-107); Estimated CRCL calculation 48 ml/min; Estimated Glomerular Filt Rate 59; Glucose 109 mg/dL (65-110); Potassium 5.1 mmol/L (3.4-5.0); Sodium 139 mmol/L (137-145)
--- NOTE | 2023-03-19 12:13 | PC.NURSE ---
Pt resting in w/c. states no pain if he doesn't move. When he moves pain shoots up to 10. Waiting on room assignment. Water given
--- NOTE | 2023-03-19 13:24 | PM.IMHP ---
H&P: HPI History of Present Illness Date/Time: 03/19/23 13:25 Chief Complaint: Back and neck pain after fall. Narrative: This is a very pleasant 77-year-old male with reported history of vestibular syndrome, paroxysmal atrial fibrillation, type 2 diabetes mellitus, hypertension, hyperlipidemia, and GERD who presented to the emergency department via private vehicle from home for evaluation of back and neck pain after a ground level fall. The patient provides the following history. He endorses ongoing issues with his balance and has previously been told that he has vestibular syndrome. Earlier today he got up to use the restroom, lost his balance after tripping over something on the floor, and he reports falling flat onto his back. He had immediate pain in the mid upper back and low neck. He was able to get himself up and drive to the ER for evaluation but since that time he has had pretty significant sharp, spasming pain throughout the mid to upper thorax region with minimal activity. CT of the head, cervical spine, and thoracic spine were without acute findings. He received a dose of Robaxin and ketorolac and was to be discharged home however he was barely able to get up due to severe pain and he is being admitted in this setting. As long as he is not moving he feels okay but does have intermittent spasming pain which seems to take his breath away. He denies head trauma and loss of consciousness in the fall and other injuries. He also denies saddle anesthesia, numbness and tingling in the legs, urinary retention, and bowel incontinence. Review of Systems Review of Systems: Twelve systems were reviewed and are negative except for as per HPI. [facility] Past Medical History Medical History (Updated 03/19/23 @ 22:17 by Yoselin Pineda PA-C) Benign prostate hyperplasia C2 cervical fracture Treated nonsurgically, patient wore a halo for 9 months. Gastroesophageal reflux disease Hyperlipidemia Hypertension Paroxysmal atrial fibrillation Type 2 diabetes mellitus Surgical History Surgical History (Updated 03/19/23 @ 14:28 by Yoselin Pineda PA-C) History of cataract extraction with lens replacement History of cystoscopy (08/2020) with Urolift. History of tonsillectomy History of transurethral resection of prostate (09/2022) History of vasectomy Family History Family History Other Diabetes mellitus Family history of malignant neoplasm Social History Social History (Updated 03/19/23 @ 22:17 by Yoselin Pineda PA-C) Social History: Surrogate medical decision maker: Becky Haddad, spouse. Code status: Full code. Smoking status: Never smoker Second hand tobacco smoke exposure: No Alcohol intake: never Alcohol use details: Rare alcohol use, perhaps 6 drinks a year. Substance use: never Substance use type: does not use Lack of Transportation: No Lack of Food: Never True Current Housing: I Have Housing Concerned About Future Housing: No Difficulty Paying Gas/Electric Bills: No Difficulty Paying for Meds: No Currently Unemployed: No Education: High School Diploma/GED Difficulty w/ Childcare or Family Care: No Living arrangements: with family Additional living arrangements comments: Lives with spouse in [place]. 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
--- NOTE | 2023-03-19 13:26 | ADMGEN ---
This patient, Lety Haddad, was admitted to [facility] Surg Room 315-02 at 1320. Patient/family oriented to hospital policies and general routines including ID bracelet, bed and alarms, visiting hours, pain management, procedures, bathroom and other care routines, personal items, smoking policy, room service/diet, and visiting hours. Information on how to activate the Rapid Response Team has been discussed. Patient/Family are encouraged to report perceived risks to care and to ask questions if they do not understand what they are told or what they should do.
[2023-03-19 17:06] LABS: Glucose Point of Care 143 mg/dl (65-105)
[2023-03-19] MEDS: EMPAGLIFLOZIN 25 MG TABLET PO (21:25)
[2023-03-19] MEDS: METOPROLOL SUCCINATE EXT REL 25 MG TABCR PO (21:25)
[2023-03-19] MEDS: GABAPENTIN 300 MG CAPSULE PO (21:25)
[2023-03-19] MEDS: PANTOPRAZOLE 40 MG TABLET PO (21:26)
[2023-03-19] MEDS: CYCLOBENZAPRINE HCL 5 MG TABLET PO (21:26)
[2023-03-19] MEDS: lisinopriL 5 MG TABLET PO (21:26)
[2023-03-19] MEDS: MELATONIN 5 MG TABLET PO (21:34)
[2023-03-19 21:42] LABS: Glucose Point of Care 106 mg/dl (65-105)
[2023-03-20 06:00] VITALS: BP 129/88; PULSE 56; RESP 12; TEMP 36; O2SAT 100
[2023-03-20 06:14] LABS: Anion Gap 6 mmol/L (8-16); Blood Urea Nitrogen 23 mg/dL (9-20); Calcium 8.8 mg/dL (8.4-10.2); Carbon Dioxide 27 mmol/L (22-30); Chloride 104 mmol/L (98-107); Estimated CRCL calculation 52 ml/min; Estimated Glomerular Filt Rate > 60; Glucose 91 mg/dL (65-110); Magnesium 2.2 mg/dL (1.6-2.3); Potassium 4.3 mmol/L (3.4-5.0); Sodium 137 mmol/L (137-145)
[2023-03-20 08:00] VITALS: BP 103/65; PULSE 64; RESP 12; TEMP 36.6; O2SAT 98
[2023-03-20 08:22] LABS: Glucose Point of Care 99 mg/dl (65-105)
[2023-03-20] MEDS: CYCLOBENZAPRINE HCL 5 MG TABLET PO (08:32)
[2023-03-20] MEDS: KETOROLAC 15 MG/ML VIAL (*BKC) IV PUSH (08:32)
--- NOTE | 2023-03-20 11:11 | PM.IMPN ---
Progress Note: A&P Assessment and Plan (1) Fall from ground level: Code(s): W18.30XA - Fall on same level, unspecified, initial encounter Status: Acute (2) Back pain: Code(s): M54.9 - Dorsalgia, unspecified Status: Acute (3) Hypertension: Code(s): I10 - Essential (primary) hypertension Status: Acute (4) Type 2 diabetes mellitus: Code(s): E11.9 - Type 2 diabetes mellitus without complications Status: Acute (5) Benign prostate hyperplasia: Code(s): N40.0 - Benign prostatic hyperplasia without lower urinary tract symptoms Status: Acute (6) Paroxysmal atrial fibrillation: Code(s): I48.0 - Paroxysmal atrial fibrillation Status: Acute Plan The patient presented to the emergency department for evaluation of severe back and neck pain following a ground level fall which is mechanical. No obvious bony injury noted on imaging studies. Patient unable to ambulate due to pain likely from spasm for muscle strain. Muscle relaxers PT OT evaluation. Carotid ultrasound negative. Blood pressure adequate. Will further evaluate MRI thoraco lumbar. Localized tenderness in T12-L1 area with intermittent spasm. Will add Valium p.r.n.. Increase Flexeril to 10 mg. Will start Medrol Dosepak. Lidocaine patch to the area Subjective Date/time seen: 03/20/23 11:11 Interval history: 77-year-old male presented to ED after a fall. Mechanical after he tripped over something on the floor landed on his back. Complains of severe pain in his neck and lower back. He has history of frequent falls. Review of Systems Review of Systems: All systems reviewed & are unremarkable except as noted in HPI and below Exam Narrative: General: Well-developed, nontoxic-appearing male ; in no acute distress. HEENT: Normocephalic, atraumatic. PERRL, EOMI. Sclera anicteric. Oral mucosa moist. Neck: Supple. No obvious carotid bruits. Respiratory: Lungs are clear to auscultation bilaterally. No respiratory distress Cardiovascular: Regular rate and rhythm with S1-S2. Gastrointestinal: Abdomen is soft, nontender, and nondistended with positive bowel sounds. Skin: Warm and dry. No rash or lesions on limited exam. Extremities: No cyanosis, clubbing, or edema. Radial and pedal pulses intact. Spine: No midline vertebral tenderness. Tender paraSpinal muscles Neurological: Alert and oriented. Cranial nerves 2-12 are grossly intact. No pronator drift. He is neurovascularly intact throughout the upper and lower extremities. Psychiatric: Pleasant and cooperative with normal mood and affect. Judgment and insight intact. Objective Data Vital Signs Vital Signs: Vital Signs - 24 hr 03/19/23 12:12 03/19/23 12:12 03/19/23 12:40 Temperature 97.8 F 98.0 F 97.9 F Pulse Rate 60 58 L 60 Respiratory Rate 18 16 18 Blood Pressure 130/74 130/74 130/78 Pulse Oximetry 98 98 Oxygen Delivery 03/19/23 13:41 03/19/23 14:00 03/19/23 22:00 Temperature 97.8 F 97.7 F Pulse Rate 90 62 Respiratory Rate 16 12 Blood Pressure 137/75 152/79 H Pulse Oximetry 100 99 Oxygen Delivery Room Air 03/19/23 20:00 03/19/23 20:00 03/20/23 06:00 Temperature 96.8 F L Pulse Rate 62 56 L Respiratory Rate 12 Blood Pressure 129/88 Pulse Oximetry 100 Oxygen Delivery Room Air 03/20/23 08:00 Temperature 97.9 F Pulse Rate 64 Respiratory Rate Blood Pressure 103/65 Pulse Oximetry 98 Oxygen Delivery Intake/Output Intake/Output: Intake & Output 03/17/23 03/18/23 03/19/23 03/20/23 23:59 23:59 23:59 23:59 Intake Total 240 1152 Output Total 300 1050 Balance -60 102 Meds/Results Medications: Active Medications Generic Name Dose Route Start Last Admin Trade Name Nateq PRN Reason Stop Dose Admin Acetaminophen 650 mg 03/19/23 14:31 Acetaminophen 325 Mg Tablet PO Q6H PRN Mild Pain (1-3) or Fever Cyclobenzaprine HCl 5 mg 03/19/23 14:31 03/20/23 08
[2023-03-20 12:01] LABS: Glucose Point of Care 116 mg/dl (65-105)
[2023-03-20] MEDS: methylPREDNISolone (MEDROL) DOSEPACK 4 MG TABLETS PO ×4 (12:18→20:44)
[2023-03-20] MEDS: CYCLOBENZAPRINE HCL 10 MG TABLET PO ×2 (13:15→20:58)
[2023-03-20] MEDS: diazePAM (*CRX) 5 MG TABLET PO (13:15)
[2023-03-20 14:00] VITALS: BP 115/58; PULSE 57; RESP 16; TEMP 36.4; O2SAT 97
--- NOTE | 2023-03-20 14:04 | PCPTNOTE ---
Pt is out of room for imaging. Will return at a later time to perform therapy evaluation
--- NOTE | 2023-03-20 14:04 | PCOTNOTE ---
Attempted OT evaluation. Pt. out of room for MRI. Will check back as able.
[2023-03-20 17:36] LABS: Glucose Point of Care 153 mg/dl (65-105)
[2023-03-20] MEDS: PANTOPRAZOLE 40 MG TABLET PO (20:42)
[2023-03-20] MEDS: MELATONIN 5 MG TABLET PO (20:42)
[2023-03-20 20:43] VITALS: PULSE 57
[2023-03-20] MEDS: METOPROLOL SUCCINATE EXT REL 25 MG TABCR PO (20:43)
[2023-03-20] MEDS: lisinopriL 5 MG TABLET PO (20:43)
[2023-03-20] MEDS: GABAPENTIN 300 MG CAPSULE PO (20:43)
[2023-03-20] MEDS: EMPAGLIFLOZIN 25 MG TABLET PO (20:44)
[2023-03-20 21:51] LABS: Glucose Point of Care 181 mg/dl (65-105)
[2023-03-20 22:00] VITALS: BP 137/85; PULSE 62; RESP 16; TEMP 36.2; O2SAT 98
[2023-03-21 06:00] VITALS: BP 134/67; PULSE 66; RESP 16; TEMP 36.3; O2SAT 98
[2023-03-21] MEDS: methylPREDNISolone (MEDROL) DOSEPACK 4 MG TABLETS PO ×4 (06:00→21:06)
[2023-03-21 06:56] LABS: Basophils Percent Auto 0.2 % (0.2-1.2); Hemoglobin 14.8 g/dL (14.0-18.0); Immature Granulocyte Absolute 0.06 K/mm3 (0.00-0.031); Immature Granulocyte Percent A 0.7 % (0-0.5); Lymphocytes Absolute Auto 0.86 K/mm3 (0.9-3.2); Mean Corpuscular HGB Conc 32.9 g/dl (32-36); Mean Corpuscular Hemoglobin 30.8 pg (26-34); Mean Corpuscular Volume 93.6 fl (80-100); Mean Platelet Volume 10.4 fl (7.4-10.4); Monocytes Absolute Auto 0.4 K/mm3 (0.1-0.6); Monocytes Percent Auto 4.3 % (2.6-8.5); Neutrophils Absolute Auto 7.3 K/mm3 (1.3-6.7); Neutrophils Percent Auto 84.8 % (45.5-73.1); Platelet Count Result 234 k/mm3 (150-375); Red Blood Count 4.81 M/mm3 (4.6-6.20); White Blood Count 8.6 K/mm3 (4.5-10.0)
[2023-03-21 07:34] LABS: Anion Gap 13 mmol/L (8-16); Blood Urea Nitrogen 34 mg/dL (9-20); Calcium 9.1 mg/dL (8.4-10.2); Carbon Dioxide 21 mmol/L (22-30); Chloride 102 mmol/L (98-107); Estimated CRCL calculation 48 ml/min; Estimated Glomerular Filt Rate 59; Glucose 138 mg/dL (65-110); Magnesium 2.5 mg/dL (1.6-2.3); Potassium 5.1 mmol/L (3.4-5.0); Sodium 136 mmol/L (137-145)
[2023-03-21 07:35] LABS: Glucose Point of Care 148 mg/dl (65-105)
[2023-03-21 07:36] VITALS: BP 126/73; PULSE 56; RESP 16; TEMP 36.4; O2SAT 98
[2023-03-21] MEDS: LIDOCAINE 5% PATCH 1 PATCH TRANSDERM (08:58)
[2023-03-21 11:43] LABS: Glucose Point of Care 206 mg/dl (65-105)
[2023-03-21] MEDS: INSULIN ASPART (*BKC) 100 UNITS/ML SUB-Q (12:26)
[2023-03-21 13:49] VITALS: BP 117/61; PULSE 63; RESP 18; TEMP 36.8; O2SAT 98
[2023-03-21] MEDS: CYCLOBENZAPRINE HCL 10 MG TABLET PO (14:54)
--- NOTE | 2023-03-21 15:38 | PM.IMPN ---
Progress Note: A&P Assessment and Plan (1) Fall from ground level: Code(s): W18.30XA - Fall on same level, unspecified, initial encounter Status: Acute (2) Back pain: Code(s): M54.9 - Dorsalgia, unspecified Status: Acute (3) Hypertension: Code(s): I10 - Essential (primary) hypertension Status: Acute (4) Type 2 diabetes mellitus: Code(s): E11.9 - Type 2 diabetes mellitus without complications Status: Acute (5) Benign prostate hyperplasia: Code(s): N40.0 - Benign prostatic hyperplasia without lower urinary tract symptoms Status: Acute (6) Paroxysmal atrial fibrillation: Code(s): I48.0 - Paroxysmal atrial fibrillation Status: Acute Plan The patient presented to the emergency department for evaluation of severe back and neck pain following a ground level fall which is mechanical. No obvious bony injury noted on imaging studies. Patient unable to ambulate due to pain likely from spasm for muscle strain. Muscle relaxers PT OT evaluation. Carotid ultrasound negative. Blood pressure adequate. Will further evaluate MRI thoraco lumbar. Localized tenderness in T12-L1 area with intermittent spasm. Will add Valium p.r.n.. Increase Flexeril to 10 mg. He has a started on medrol Dosepak. Lidocaine patch to the area. MRI thoraco lumbar reviewed. Lumbar spondylosis severe in L4-L5 area which is chronic. Subjective Date/time seen: 03/21/23 15:38 Interval history: 77-year-old male presented to ED after a fall. Mechanical after he tripped over something on the floor landed on his back. Complains of severe pain in his neck and lower back. He has history of frequent falls. 03/21/2023: Patient getting intermittent spasm however pain is improving work with therapy. No fever chills. Review of Systems Review of Systems: All systems reviewed & are unremarkable except as noted in HPI and below Exam Narrative: General: Well-developed, nontoxic-appearing male ; in no acute distress. HEENT: Normocephalic, atraumatic. PERRL, EOMI. Sclera anicteric. Oral mucosa moist. Neck: Supple. No obvious carotid bruits. Respiratory: Lungs are clear to auscultation bilaterally. No respiratory distress Cardiovascular: Regular rate and rhythm with S1-S2. Gastrointestinal: Abdomen is soft, nontender, and nondistended with positive bowel sounds. Skin: Warm and dry. No rash or lesions on limited exam. Extremities: No cyanosis, clubbing, or edema. Radial and pedal pulses intact. Spine: No midline vertebral tenderness. Tender paraSpinal muscles Neurological: Alert and oriented. Cranial nerves 2-12 are grossly intact. No pronator drift. He is neurovascularly intact throughout the upper and lower extremities. Psychiatric: Pleasant and cooperative with normal mood and affect. Judgment and insight intact. Objective Data Vital Signs Vital Signs: Vital Signs - 24 hr 03/20/23 20:43 03/20/23 22:00 03/20/23 20:00 Temperature 97.2 F L Pulse Rate 57 L 62 Respiratory Rate 16 Blood Pressure 137/85 Pulse Oximetry 98 Oxygen Delivery Room Air 03/21/23 06:00 03/21/23 07:36 03/21/23 10:23 Temperature 97.4 F L 97.6 F Pulse Rate 66 56 L Respiratory Rate 16 16 Blood Pressure 134/67 126/73 Pulse Oximetry 98 98 Oxygen Delivery Room Air 03/21/23 13:49 Temperature 98.2 F Pulse Rate 63 Respiratory Rate 18 Blood Pressure 117/61 Pulse Oximetry 98 Oxygen Delivery Intake/Output Intake/Output: Intake & Output 03/18/23 03/19/23 03/20/23 03/21/23 23:59 23:59 23:59 23:59 Intake Total 240 1632 762 Output Total 300 1250 775 Balance -60 382 -13 Meds/Results Medications: Active Medications Generic Name Dose Route Start Last Admin Trade Name Freq PRN Reason Stop Dose Admin Acetaminophen 650 mg 03/19/23 14:31 Acetaminophen 325 Mg Tablet PO Q6H PRN Mild Pain (1-3) or Fever Cyclobenzaprine HCl 10 mg 03/20/23 12:10
[2023-03-21 16:56] LABS: Glucose Point of Care 167 mg/dl (65-105)
[2023-03-21 21:05] VITALS: PULSE 70
[2023-03-21] MEDS: EMPAGLIFLOZIN 25 MG TABLET PO (21:05)
[2023-03-21] MEDS: PANTOPRAZOLE 40 MG TABLET PO (21:05)
[2023-03-21] MEDS: MELATONIN 5 MG TABLET PO (21:05)
[2023-03-21] MEDS: GABAPENTIN 300 MG CAPSULE PO (21:05)
[2023-03-21] MEDS: lisinopriL 5 MG TABLET PO (21:05)
[2023-03-21] MEDS: METOPROLOL SUCCINATE EXT REL 25 MG TABCR PO (21:05)
[2023-03-21 22:00] VITALS: BP 126/75; PULSE 59; RESP 18; TEMP 37.1; O2SAT 99
[2023-03-22] MEDS: CYCLOBENZAPRINE HCL 10 MG TABLET PO ×2 (01:34→20:39)
[2023-03-22 03:26] LABS: Glucose Point of Care 178 mg/dl (65-105)
[2023-03-22] MEDS: methylPREDNISolone (MEDROL) DOSEPACK 4 MG TABLETS PO ×4 (05:32→20:39)
[2023-03-22 06:00] VITALS: BP 126/67; PULSE 57; RESP 16; TEMP 36.5; O2SAT 98
[2023-03-22 08:00] VITALS: PULSE 57; RESP 16; O2SAT 98
[2023-03-22 08:00] LABS: Glucose Point of Care 126 mg/dl (65-105)
[2023-03-22] MEDS: LIDOCAINE 5% PATCH 1 PATCH TRANSDERM (09:07)
[2023-03-22] MEDS: diazePAM (*CRX) 5 MG TABLET PO (11:17)
--- NOTE | 2023-03-22 11:41 | PM.IMPN ---
Progress Note: A&P Assessment and Plan (1) Fall from ground level: Code(s): W18.30XA - Fall on same level, unspecified, initial encounter Status: Acute (2) Back pain: Code(s): M54.9 - Dorsalgia, unspecified Status: Acute (3) Hypertension: Code(s): I10 - Essential (primary) hypertension Status: Acute (4) Type 2 diabetes mellitus: Code(s): E11.9 - Type 2 diabetes mellitus without complications Status: Acute (5) Benign prostate hyperplasia: Code(s): N40.0 - Benign prostatic hyperplasia without lower urinary tract symptoms Status: Acute (6) Paroxysmal atrial fibrillation: Code(s): I48.0 - Paroxysmal atrial fibrillation Status: Acute Plan The patient presented to the emergency department for evaluation of severe back and neck pain following a ground level fall which is mechanical. No obvious bony injury noted on imaging studies. Patient unable to ambulate due to pain likely from spasm for muscle strain. Muscle relaxers PT OT evaluation. Carotid ultrasound negative. Blood pressure adequate. Will further evaluate MRI thoraco lumbar. Localized tenderness in T12-L1 area with intermittent spasm. Will add Valium p.r.n.. Increase Flexeril to 10 mg. He has a started on medrol Dosepak. Lidocaine patch to the area. MRI thoraco lumbar reviewed. Lumbar spondylosis severe in L4-L5 area which is chronic. Pain control still an issue. Will add hydrocodone p.r.n. along with stool softener. Continue PT OT Subjective Date/time seen: 03/22/23 11:41 Interval history: 77-year-old male presented to ED after a fall. Mechanical after he tripped over something on the floor landed on his back. Complains of severe pain in his neck and lower back. He has history of frequent falls. 03/21/2023: Patient getting intermittent spasm however pain is improving work with therapy. No fever chills. 03/22/2023: Patient feeling worse today with increased pain and spasm whenever he moves. Working with therapy. Review of Systems Review of Systems: All systems reviewed & are unremarkable except as noted in HPI and below Exam Narrative: General: Well-developed, nontoxic-appearing male ; in no acute distress. HEENT: Normocephalic, atraumatic. PERRL, EOMI. Sclera anicteric. Oral mucosa moist. Neck: Supple. No obvious carotid bruits. Respiratory: Lungs are clear to auscultation bilaterally. No respiratory distress Cardiovascular: Regular rate and rhythm with S1-S2. Gastrointestinal: Abdomen is soft, nontender, and nondistended with positive bowel sounds. Skin: Warm and dry. No rash or lesions on limited exam. Extremities: No cyanosis, clubbing, or edema. Radial and pedal pulses intact. Spine: No midline vertebral tenderness. Tender paraSpinal muscles and mid thoracic area Neurological: Alert and oriented. Cranial nerves 2-12 are grossly intact. No pronator drift. He is neurovascularly intact throughout the upper and lower extremities. Psychiatric: Pleasant and cooperative with normal mood and affect. Judgment and insight intact. Objective Data Vital Signs Vital Signs: Vital Signs - 24 hr 03/21/23 13:49 03/21/23 21:05 03/21/23 22:00 Temperature 98.2 F 98.8 F Pulse Rate 63 70 59 L Respiratory Rate 18 18 Blood Pressure 117/61 126/75 Pulse Oximetry 98 99 Oxygen Delivery 03/22/23 06:00 03/22/23 08:00 Temperature 97.7 F Pulse Rate 57 L 57 L Respiratory Rate 16 16 Blood Pressure 126/67 Pulse Oximetry 98 98 Oxygen Delivery Room Air Intake/Output Intake/Output: Intake & Output 03/19/23 03/20/23 03/21/23 03/22/23 23:59 23:59 23:59 23:59 Intake Total 240 1632 1002 1040 Output Total 300 1250 1550 950 Balance -60 842 -668 90 Meds/Results Medications: Active Medications Generic Name Dose Route Start Last Admin Trade Name Nateq PRN Reason Stop Dose Admin Acetaminophen 650 mg 03/19/23 14:31 Acetaminophen 325 Mg Tablet PO
[2023-03-22 11:47] LABS: Glucose Point of Care 195 mg/dl (65-105)
[2023-03-22 13:57] VITALS: BP 112/64; PULSE 63; RESP 20; TEMP 36.6; O2SAT 100
[2023-03-22 16:25] LABS: Glucose Point of Care 191 mg/dl (65-105)
[2023-03-22] MEDS: EMPAGLIFLOZIN 25 MG TABLET PO (20:38)
[2023-03-22] MEDS: GABAPENTIN 300 MG CAPSULE PO (20:38)
[2023-03-22] MEDS: METOPROLOL SUCCINATE EXT REL 25 MG TABCR PO (20:38)
[2023-03-22] MEDS: MELATONIN 5 MG TABLET PO (20:38)
[2023-03-22] MEDS: PANTOPRAZOLE 40 MG TABLET PO (20:38)
[2023-03-22] MEDS: lisinopriL 5 MG TABLET PO (20:39)
[2023-03-22 22:00] VITALS: BP 121/62; PULSE 66; RESP 18; TEMP 36.9; O2SAT 97
[2023-03-22 22:28] LABS: Glucose Point of Care 185 mg/dl (65-105)
[2023-03-23 05:45] VITALS: BP 117/65; PULSE 51; RESP 18; TEMP 36.6; O2SAT 98
[2023-03-23] MEDS: methylPREDNISolone (MEDROL) DOSEPACK 4 MG TABLETS PO ×2 (06:31→11:56)
[2023-03-23 07:57] LABS: Glucose Point of Care 126 mg/dl (65-105)
[2023-03-23 07:59] VITALS: BP 116/66; BP 98/65; PULSE 56; RESP 16; TEMP 36.6; O2SAT 98
[2023-03-23 08:00] VITALS: BP 83/62
[2023-03-23] MEDS: LIDOCAINE 5% PATCH 1 PATCH TRANSDERM (08:18)
[2023-03-23 08:20] VITALS: O2SAT 94
[2023-03-23 08:25] VITALS: BP 127/73; PULSE 53; O2SAT 96
[2023-03-23] MEDS: diazePAM (*CRX) 5 MG TABLET PO (08:42)
[2023-03-23 11:51] LABS: Glucose Point of Care 166 mg/dl (65-105)
[2023-03-23 14:00] VITALS: BP 121/68; PULSE 62; RESP 18; TEMP 36.5; O2SAT 99
--- NOTE | 2023-03-23 16:24 | PM.DS ---
DS: Admitting Diagnosis Discharge Date 03/23/23 Admitting Diagnosis dorsalgia DS: Discharge Diagnosis Discharge Diagnosis (1) Back pain: Code(s): M54.9 - Dorsalgia, unspecified Status: Acute (2) Fall from ground level: Code(s): W18.30XA - Fall on same level, unspecified, initial encounter Status: Acute DS: Summary Hospital Course Hospital Course: 77M w/ PMH HTN and back pain fell from standing roberta and hit his back. He had severe back pain and spasms, drove himself to the [place] ER and was admitted for pain control and therapy. He was able to walk independently and pain is much improved. Pt requests pain control regimen at home at least for a short course. Since he tolerated flexeril, valium, and norco inpatient without adverse effect we decided on a short course of flexeril and norco, not to be taken at the same time to avoid excess sedation, paired with lidocaine patch, tylenol prn and medrol dose pack. He is to follow up with his primary care doctor. He has no complaints. More than 30 minutes spent on discharge planning and documentation. Time Spent with Patient Time attestation: Total time spent providing and/or coordinating discharge services: Exam Const: General: cooperative and no acute distress Resp: Effort & Inspection: normal respiratory effort Auscultation: clear to auscultation bilaterally Cardio: Rate: regular rate Rhythm: regular rhythm Heart sounds: S1 normal heart sound present and S2 normal heart sound present GI: GI Palp: No abdominal tenderness Auscultation: normal bowel sounds Neuro: Motor exam (neuro): 5/5 motor strength present throughout Sensory Exam: normal sensation Other: no bony stepoff, or pain to palpation of back. Extrem: General: no edema DS: Data Data Completed and Pending Labs on day of discharge: Labs from last 24 hours 03/23/23 03/23/23 03/22/23 11:20 07:49 21:37 POC Capillary Glucose 166 H 126 H 185 H 03/22/23 16:18 POC Capillary Glucose 191 H Discharge Plan Discharge Attending physician on discharge: Socorro Boo Discharging Clinician: Socorro Boo Patient Disposition: Home, Self-Care Activity: may shower Diet: heart healthy and diabetic Discharge Instructions: Pt. to have outpatient PT/OT evaluations and treatment at therapy center of choice. As discussed, please alternate between flexeril and norco as taking both at the same time can cause excess drowsiness. If you experience abnormal symptoms after taking those medications, contact your local ER immediately. Use lidocaine patch only as needed and remove after 24 hours of application. Patient Instructions: Pain Management (DC) Stand Alone Forms: General Discharge Information Follow-up/Referrals: Taco,Anuradha Preciado MD [Primary Care Provider] - Discharge Medications: New cyclobenzaprine 10 mg Tablet 10 mg PO Q8HR PRN (Reason: Muscle Spasm) 2 Days Qty: 6 0RF hydrocodone-acetaminophen 5-325 mg Tablet 1 tablet PO Q6H PRN (Reason: Pain Rated 4-6) 2 Days Qty: 8 0RF lidocaine [Lidoderm] 5 % Adhesive Patch,Medicated 1 patch transdermal DAILY PRN (Reason: pain) 30 Days Qty: 30 0RF methylprednisolone [Medrol (Matt)] 4 mg tablets,dose pack See Rx Instructions .ROUTE .COMPLEX Qty: 21 0RF Rx Instructions: orally per package directions acetaminophen [Acetaminophen Extra Strength] 500 mg tablet 500 mg PO Q6H PRN (Reason: pain (scale score 1-3)) Qty: 30 0RF Rx Instructions: do not exceed 4 grams of acetaminophen in one day from all sources (norco has acetaminophen) Continued gabapentin 300 mg capsule 300 mg PO HS omeprazole 20 mg capsule,delayed release(DR/EC) 20 mg PO HS lisinopril 5 mg tablet 5 mg PO HS metoprolol succinate 25 mg tablet extended release 24 hr 25 mg PO HS testosterone cypionate 200 mg/mL oil 200 mg IM [id number] Patient Comments: 03/18/23
[2023-03-23 16:46] LABS: Glucose Point of Care 191 mg/dl (65-105)
== END 2023-03-23 17:10 | disposition home or self-care (01) | DRG 552 ==
LOC: ANHED 11:31 → ANH3MEDSUR 12:22
PROVIDERS: Physician Assistant; Admitting Provider Internal Medicine; Emergency Provider Emergency Medicine; PCP Family Medicine; Visit Provider General Practice
DX: M54.9 Dorsalgia, unspecified (principal); W01.0XXA Fall on same level from slipping, tripping and stumbling without subsequent striking against object, initial encounter; I48.0 Paroxysmal atrial fibrillation; E11.9 Type 2 diabetes mellitus without complications; I10 Essential (primary) hypertension; E78.5 Hyperlipidemia, unspecified; K21.9 Gastro-esophageal reflux disease without esophagitis; N40.0 Benign prostatic hyperplasia without lower urinary tract symptoms; R25.2 Cramp and spasm; Z98.42 Cataract extraction status, left eye; Z98.41 Cataract extraction status, right eye; Z96.1 Presence of intraocular lens
CPT/HCPCS: 36415; 70450; 71045; 72125; 72128; 72131; 72146; 72148; 72170; 80048; 80053; 82948; 83735; 85025; 93880; 96374; 96375; 97116; 97161; 97165; 97530; 97535; 99285; A9270; J1815; J1885; J3360; J7030; L0140

== ENCOUNTER 2025-03-12 08:57 | Outpatient (CLI) | payer MEDICARE, OTHER, SELFPAY ==
--- OUTSIDE RECORDS SUMMARY | 2025-03-12 09:11 | XMS_ITS | Continuity of Care Document ---
Author Name [facility] Organization [facility] Care Team Providers Care Locum Tenens Name Role Phone [facility] Unavailable Unavailable Problems Combined list of problems from Department of Defense and [facility] Affairs facilities. It does not include entries that were removed or entered in error. Problem Status Onset Date Problem Type Date of Resolution Comments Source Chronic kidney disease Active Condition [facility] Dementia ([facility] 78276808) Active Condition [facility] Diabetes Mellitus Type 2 ([facility] 23748029) Active Condition [facility] Erectile dysfunction ([place] 235220008) Active Condition [facility] GERD - Gastro-Esophageal Reflux Disease ([facility] 486509002) Active Condition [facility] History of surgery Active Condition D ec 2018 Entered By: YOEL MIGUEL Comment: childhood tonsillectomyDec 2018 Entered By: YOEL MIGUEL Comment: ~2008 bilateral eye cataract surgery [facility] HLD - Hyperlipidaemia Active Condition [facility] HTN - Hypertension (SCT 72935108) Active Condition [facility] Low Back Pain ([facility] 060524202) Active Condition [facility] Lower urinary tract symptoms (SNOMED CT 685537296) Active Condition [facility] Osteoarthritis (SNOMED CT 528253460) Active Condition [facility] Restless legs syndrome Active Condition [facility] Sensorineural hearing loss, bilateral (SNOMED CT 561339518) Active Condition Jun 19, 2019 Entered By: YOEL MIGUEL Comment: hearing aid user, in audiology [facility] ALLERGY, UNSPECIFIED Inactive Condition 07/10/2019 [facility] ROUTINE MEDICAL EXAM Inactive Condition 07/10/2019 [facility] visit for: fitting and adjustment of device Inactive Condition DoD Hearing Services Hearing Aid Fitting/Orientatio n/Checking Of Active Condition DoD Patient Education Inactive Condition DoD BENIGN PAROXYSMAL POSITIONAL VERTIGO RIGHT EAR Active Condition Treated with Ep myriam - decreased dizzyness no nystagmus or vertigo after Eve x 2 DoD BACKACHE Active Condition DoD joint pain, localized in the hip Active Condition needs films and will pur c/s in for PT. DoD muscle cramps in the calf Inactive Condition does not sound like claudication or neuropathylikely just from being on feet for extended periodssee #3 below DoD BURSITIS TROCHANTERIC Active Condition Injected with kenalog, marcaine, and lidocaine. Pt tolerated procedure well. DoD Administrative Evaluation Services Inactive Condition DoD visit for: screening exam malignant neoplasm prostate Inactive Condition His urologist nghia Koch is requesting a PSA. will order and notify him of the results. Last PSA was WNL DoD LOWER BACK SPRAIN Inactive Condition Pt is very tight in hamstrings and has + bilateral trendelenberg. Will send to PT. We discussed worrisome sings of back pain (he has none currently). Asked him to f/u in 2-4 weeks or sooner with concerns. Cont APAP and Motrin DoD HYPERTENSION (SYSTEMIC) Active Condition not taking lisinopril, will recheck k, if still high may need to findanother approach DoD DIABETES MELLITUS TYPE 2 Active Condition A-Pt with DM2P- Pt desires to start Lantus- will start at 12 units sq daily-Pt to check BS three times/day-Will continue Januvamet as well-Will f/u by phone in one week, pt to RTC in one month-Will also refer to [facility] for education-RX for Januvamet bid #[id number] for Lantus 100u/ml 10ml vial #2 R2-RX for strips and syringes given as well-Pt also needing eye exam-plans appt with civilian provider DoD memory lapses or loss Active Condition Pt to f/u as discussed above, prn. DoD SCIATICA Active Condition DoD PALPITATIONS Active Condition est wit h cards, had stress test recently awaiting results, dw pt other options including holter/event monitor, will also recheck bmp, mg, phos as had elev k in recent met panel DoD DIABETES MELLITUS Active Condition - Pt well controlled. - Cotinue 15 u Lantus QAM- Pt encouraged to continue close monitoring of blood glucose.- Pt to f/u in clinic in 6 months for re-evaluation of DM.- Case discussed with Dr. Radha Moffett. DoD SEBORRHEIC KERATOSIS Active Condition A-Pt with christine keratosis behind L Jess-Pt missed appt in Procedures clinic, we will try and reschedule appt there, referral in [address] MALE ERECTILE DISORDER Active Condition rx for 50 mg 1 po prn #9 3 rf [facility] joint pain, localized in the shoulder Active Condition A-Pt with R shoulder painP-Pt with recent excercise regimen, now with R should pain-Pt refused Motrin trial and desires to see Dr. Del Cid at clinic-Referral in [address] NORMAL EXAMINATION Inactive Condition Do D NORMAL ROUTINE HISTORY AND PHYSICAL Active Condition - Pt last colonoscopy 3 yrs ago, normal. Next one due in 7 yrs.- Pt BPH followed by urology. [facility] visit for: follow-up exam Inactive Condition [facility] visit for: administrative purpose Inactive Condition [facility] Prosthetic Devices Fitting And Adjustment Active Condition [facility] HEADACHE SYNDROMES Active Condition DoD TINNITUS Active Condition [facility] SENSORINEURAL HEARING LOSS Active Condition [facility] Diagnosis: ICD-10-CM F41.9 Anxiety disorder, unspecified Active Diagnosis [facility] Diagnosis: ICD-10-CM E11.9 Type 2 diabetes mellitus without complications Active Diagnosis [facility] Diagnosis: ICD-10-CM H90.3 Sensorineural hearing loss, bilateral Active Diagnosis [facility] Diagnosis: ICD-10-CM S05.02XD Inj conjunctiva and corneal abrasion w/o fb, left eye, subs Active Diagnosis [facility] Diagnosis: ICD-10-CM S05.02XA Inj conjunctiva and corneal abrasion w/o fb, left eye, init Active Diagnosis [facility] Diagnosis: ICD-10-CM I10 Essential (primary) hypertension Active Diagnosis [facility] Diagnosis: ICD-10-CM H91.93 Unspecified hearing loss, bilateral Active Diagnosis [facility] Medications Combined list of outpatient medications from Department of Defense and Veterans Affairs facilities.Medications provided include 1) outpatient medications from the last 15 months, and 2) patient-reported medications. Medication Details Route Status Patient Instructions Prescription Expires Prescription Number Last Dispense Date Ordering Provider Order Date Order Qty Source CHOLECALCIF BANDAR (LOW DOSE VIT D) - (OTC) TAB TAKE BY MOUTH ONCE A DAY ORAL ACTIVE ME LUIS FERNANDO TTISA 2021 [facility] EMPAGLIFLOZ IN 25 MG ORAL TAB TAKE ONE TABLET BY MOUTH ONCE A DAY FOR DIABETES 12/12/2024 [id number] [place] 2023 90 [facility] Divis[facility] n EMPAGLIFLOZ IN 25MG TAB TAKE ONE TABLET BY MOUTH ONCE A DAY FOR DIABETES ORAL ACTIVE 04/06/2025 [id number] [place] [address] [place] [address] EMPAGLIFLOZ IN 25MG TAB TAKE ONE TABLET BY MOUTH ONCE A DAY FOR DIABETES ORAL DISCONT INUED 12/12/2024 [id number] 5 ME LUIS FERNANDO TTGORAN [address] [place] [address] DIVSHERI N ESZOPICLONE 3MG TAB TAKE ONE TABLET BY MOUTH AT BEDTIME ORAL ACTIVE ME LUIS FERNANDO TTGORAN 2021 [facility] FLOMAX (BRAND) 0.4 MG ORAL CAP TAKE ONE CAPSULE BY MOUTH EVERY EVENING FOR BENIGN PROSTATI C HYPERPLA PAULETTE APPROXIM ATELY 30 MINUTES AFTER THE SAME MEAL EACH DAY 12/12/2024 [id number] [place] 2023 90 [facility] Emma farmer GABAPENTIN (GABAPENTIN ), 300 MG, CAPSULE, ORAL, Izzy Money PHARMA,, 500 ea. BOTTLE Active [id number] 2023 60 [facility] y [employer] [facility] y GABAPENTIN 300MG CAP TAKE 2 CAPSULES BY MOUTH THREE TIMES A DAY ORAL ACTIVE ME LUIS FERNANDO TTISA 2021 [facility] IRX: Sildenafil 100 mg/Placebo Tablet Oral TAKE ONE-HALF TABLET BY MOUTH TWO TIMES PER WEEK NEEDED FOR ERECTILE DYSFUNCT ION (TAKE 60 MINUTES PRIOR TO SEXUAL ACTIVITY ) - LIMIT 6 DOSES PER 30 DAYS 12/12/2024 [id number] [place] TISNghia 2023 6 [facility] Divisio n LISINOPRIL 5MG TAB TAKE ONE-HALF TABLET BY MOUTH ONCE A DAY ORAL ACTIVE 04/06/2025 [id number] TOMAS M 2024 45 [facility] LISINOPRIL 5MG TAB TAKE ONE-HALF TABLET BY MOUTH ONCE A DAY ORAL DISCONT INUED 01/09/2025 [id number] 5 Radha REGAN 2024 45 [facility] LISINOPRIL 5MG TAB TAKE ONE-HALF TABLET BY MOUTH ONCE A DAY ORAL DISCONT INUED 10/12/2025 [id number] Radha REGAN 2024 15 [facility] metoprolol succ (U/D) 50 MG ORAL TB24 TAKE ONE-HALF TABLET BY MOUTH ONCE A DAY FOR HIGH BLOOD PRESSURE SWALLOW WHOLE, DO NOT CRUSH OR CHEW (TABLETS MAY BE CUT IN HALF). 12/12/2024 [id number] 4 MET LUIS FERNANDOTISNghia 2023 45 [facility] Divisio n METOPROLOL SUCCINATE 50MG TAB,SA TAKE ONE-HALF TABLET BY MOUTH ONCE A DAY FOR HIGH BLOOD PRESSURE SWALLOW WHOLE, DO NOT CRUSH OR CHEW (TABLETS MAY BE CUT IN HALF). ORAL ACTIVE 04/06/2025 [id number] TOMAS M 2024 45 [facility] METOPROLOL SUCCINATE 50MG TAB,SA TAKE ONE-HALF TABLET BY MOUTH ONCE A DAY FOR HIGH BLOOD PRESSURE SWALLOW WHOLE, DO NOT CRUSH OR CHEW (TABLETS MAY BE CUT IN HALF). ORAL DISCONT INUED 12/12/2024 [id number] ME NEENA [place] 2023 45 [facility] MOXIFLOXACI N HCL (EQV-VIGAMO X) 0.5% SOLN,OPH INSTILL 1 DROP IN LEFT EYE FOUR TIMES A DAY FOR BACTERIA L EYE INFECTIO N OPHTHA IC ACTIVE 05/18/2025 [id number] WILEY PABON 2023 3 [facility] PROPYLENE GLYCOL 0.6% (PF) SOLN,OPH INSTILL 1 DROP IN BOTH EYES EVERY 1 HOUR FOR DRY EYE(S) ([place]) OPHTHA LMIC ACTIVE 05/19/2025 [id number] [place] 2023 20 [facility] PROPYLENE GLYCOL 0.6% (PF) SOLN,OPH INSTILL 1 DROP IN AFFECTED EYE(S) EVERY 1 HOUR FOR DRY EYE(S) ([place]) OPHA [facility] DISCONT INUED (EDIT) 06/16/2024 [id number] [place] 2023 30 [facility] SEMAGLUTIDE 0.25MG/0.37 5ML INJ,SOLN,PE N,3ML INJECT 0.25MG UNDER THE SKIN EVERY WEEK FOR DIABETES SUBCUT ANEOUS ACTIVE 09/27/2025 [id number] 5 KAZ MARTINEZ 2024 1 [facility] SILDENAFIL CITRATE 100MG TAB TAKE ONE-HALF TABLET BY MOUTH TWO TIMES PER WEEK NEEDED FOR ERECTILE DYSFUNCT ION (TAKE 60 MINUTES PRIOR TO SEXUAL ACTIVITY ) - LIMIT 6 DOSES PER 30 DAYS ORAL 12/12/2024 [id number] 5 ME LUIS FERNANDO TTISA 2023 6 [facility] TAMSULOSIN HCL 0.4MG CAP TAKE ONE CAPSULE BY MOUTH EVERY EVENING FOR BENIGN PROSTATI C HYPERPLA PAULETTE APPROXIM ATELY 30 MINUTES AFTER THE SAME MEAL EACH DAY ORAL DISCONT INUED BY PROVIDE R 09/25/2025 [id number] 5 KAZ MARTINEZ 2024 90 [facility] TAMSULOSIN HCL 0.4MG CAP TAKE ONE CAPSULE BY MOUTH EVERY EVENING FOR BENIGN PROSTATI C HYPERPLA PAULETTE APPROXIM ATELY 30 MINUTES AFTER THE SAME MEAL EACH DAY ORAL DISCONT INUED 12/12/2024 [id number] 4 ME LUIS FERNANDO TTISA 2023 90 [facility] TESTOSTERON E CYPIONATE 200MG/ML INJ,1ML (IN OIL) INJECT 100MG/0. 5ML DEEP INTRAMUS CULARLY WEEKLY INTRAM USCULA R ACTIVE 04/14/2025 [id number] 5 KAZ MARTINEZ 2024 4 [facility] TESTOSTERON E CYPIONATE 200MG/ML INJ,1ML (IN OIL) INJECT 100MG/0. 5ML DEEP INTRAMUS CULARLY WEEKLY FOR LOW TESTOSTE ASHLEY INTRAM USCULA R 09/09/2024 [id number] 5 KAZ MARTINEZ 2023 4 [facility] ZINC GLUCONATE TAB TAKE BY MOUTH ONCE A DAY ORAL ACTIVE Radha REGAN 2024 [facility] Allergies, Adverse Reactions, Alerts Combined list of allergies from Department of Defense and Veterans Affairs facilities. It does not include entries that were removed or entered in error. Substance Category Reaction Severity Reaction type Status Date Reported Comments Source No Known Allergies Drug allergy (disorder) active 02/08/2008 [facility] Edilberto Madhavi ([facility]) Immunizations Combined list of available immunizations from the Department of Defense and Veterans Affairs facilities. Immunization Series Date Given Administered By Site Reaction Lot Number CVX Code Drug Security Control Assessor Status Comments Source INFLUENZA, UNSPECIFIED FORMULATION 2018 88 complet ed [facility] PNEUMOCOCCAL POLYSACCHARID E PPV23 2018 33 complet ed [facility] tuberculin skin test; purified protein derivative solution, intradermal 1 2003 Unknown, Provider 96 () complet ed tuberculi n skin test; purified protein derivativ e solution, intraderm al DoD influenza virus vaccine, whole virus 1 2002 Unknown, Provider [id number] Sanofi Pasteur ([facility]) complet ed influenza virus vaccine, whole virus DoD tuberculin skin test; purified protein derivative solution, intradermal 1 2002 Unknown, Provider [id number] Sanofi Pasteur ([facility]) complet ed tuberculi n skin test; purified protein derivativ e solution, intraderm al [facility] tetanus and diphtheria toxoids, adsorbed, preservative free, for adult use (2 Lf of tetanus toxoid and 2 Lf of diphtheria toxoid) 1 2001 Unknown, Provider [id number] 09 Sanofi Pasteur ([facility]) complet tetanus and diphtheri a toxoids, adsorbed, preservat jalen free, for adult use (2 Lf of tetanus toxoid and 2 Lf of diphtheri a toxoid) [facility] INFLUENZA, UNSPECIFIED FORMULATION 1999 88 complet [facility] DIVISIO N PNEUMOCOCCAL, UNSPECIFIED FORMULATION 1997 KATIEMANUELITO Anderson X 109 complet [facility] TD(ADULT) UNSPECIFIED FORMULATION 1997 MANUELITO WILSON X 139 complet [facility] DIVISIO N Results Combined list of recent chemistry, hematology and other laboratory results from [facility] and [facility], ranging from 15 months to all on record, depending upon the facility. Order Name Results Value Reference Range Date Interpretation Specimen Comments Source GLUCOSE ,BLOOD- poct (STL) GLUCOSE [MASS/VOLUM E] IN BLOOD BY AUTOMATED TEST STRIP 124 mg/dL 72 - 99 2023 H Specimen Type: BLOOD Comment: Test Performed by: [id number] Meter #: [id number] Ordering Provider: KAZ VALLE Report Released Date/Time: Mar 09, 2024 03:05 PM Reporting Lab: [place] [id number] [facility] [id number] Performing Lab: [address] [id number] [facility] Vital Signs Combined list of inpatient and outpatient Vital Signs from [facility] and [facility], ranging from 12 months to all on record, depending upon the facility. Vital Sign Value Date Comments Source SYSTOLIC BLOOD PRESSURE 131 10/11/2024 10:30:00 [facility] DIASTOLIC BLOOD PRESSURE 79 10/11/2024 10:30:00 [facility] PULSE 66 10/11/2024 10:30:00 [facility] SYSTOLIC BLOOD PRESSURE 122 03/09/2024 10:39:41 [facility] DIASTOLIC BLOOD PRESSURE 70 03/09/2024 10:39:41 [facility] PULSE OXIMETRY 97 03/09/2024 10:39:41 [facility] WEIGHT 156 03/09/2024 10:39:[facility] BMI 22 kg/m2 03/09/2024 10:39:[facility] PAIN 0 03/09/2024 10:39:41 [facility] HEIGHT 70 03/09/2024 10:39:41 [facility] TEMPERATURE 97.4 03/09/2024 10:39:41 [facility] PULSE 63 03/09/2024 10:39:41 [facility] RESPIRATION 18 03/09/2024 10:39:41 [facility] Encounters Combined list of: 1) Encounters from Department of Veterans Affairs facilities going backup to the last 18 months, not all VA inpatient encounters are included; 2) Encounters from the Department of Defense facilities going backup to 280 months. Location Location Details Encounter Type Encounter Number Reason For Visit Attending Provider ADM Date DC Date Status Disposition Source [address] [place] [address])(Aud iology) OUTPATIENT [id number] Hearing loss MAURICIO SALDIVAR 05/12 Released w/o Limitations [address] [place] [address] [facility]to [facility])(A udiolog y) [address] [place] [address] Edilberto [facility])(Aud iology) OUTPATIENT [id number] hearing aid impress ion MAURICIO SALDIVAR 10/26 Released w/o Limitations [address] [place] [address])(A udiolog y) [address] [place] [address] Ed[facility]to [facility])(Aud iology) OUTPATIENT [id number] hearing aid belt picker MAURICIO SALDIVAR 11/18 Released w/o Limitations [address] [place] [address])(A udiolog y) [address] [place] [address] ([facility])(Aud iology) OUTPATIENT [id number] f/u to check hearing aid MAURICIO SALDIVAR 01/12 Released w/o Limitations [employer] ([facility])(A udiolog y) [employer] [place] ([facility])([place] laryngolo gy) OUTPATIENT [id number] ear check per cpt carlotta SEBASTIANPHAN Galina 01/12 Released w/o Limitations [employer] ([facility])(O tolaryn gology) [employer] ([facility])(Aud iology) OUTPATIENT [id number] MAURICIO SALDIVAR P 02/26 Released w/o Limitations [employer] [place] ([facility])(A udiolog y) Medical [facility] [facility] ([facility])(Sco tt [facility] Fam Res [facility]m [place]) TELE CONSULT [id number] ERIN Oneill 03/24 [employer] [place] ([facility])(S cott [facility] Fam Res [facility]m Green) [facility] [employer] [place] ([facility])(Sco tt [facility] Fam Res [place]m [place]) TELE CONSULT [id number] DEEPAK MOFFETT 04/01 Medical [facility] ([facility])(S cott [facility] Fam Res [facility]m [place]) Medical Group [facility]Sco tt [facility] Fam Res Tm Green) TELE CONSULT [id number] Depende ncy Determi nation Ltr DEEPAK MOFFETT W 04/02 [facility] [facility] ([facility])(S cott [facility] Fam Res [facility]m Green) Medical Group [facility] ([facility])(Sco tt [facility] Fam Res Tm Green) OUTPATIENT [id number] paperwo DEEPAK Garcia 04/02 Released w/o Limitations [employer] ([facility])(S cott [facility] Fam Res [employer] [place]) [employer] ([facility])(Aud iology) OUTPATIENT [id number] MAURICIO SALDIVAR P 06/22 Released w/o Limitations [employer] ([facility])(A udiolog y) [employer] [place] ([facility])(Aud iology) OUTPATIENT [id number] MAURICIO SALDIVAR 06/30 Released w/o Limitations [facility]to QUIROZ[facility] ([facility])(A udiolog y) [facility] [employer] [facility] ([facility])(Sco tt [facility] Fam Res Tm Green) OUTPATIENT [id number] knee problem KRYSTEN Melendrez 07/22 Released w/o Limitations [facility] [employer] [facility] ([facility])(S cott OF Fam Res Tm Green) [address] [place] [address] Edilberto QU[facility] ([facility])(Sco tt [facility] Fam Res Tm Green) TELE CONSULT [id number] ReferKRYSTEN Matta 08/[address] [place] [address] Group Edilberto QUIROZ[facility] ([facility])(S cott [facility] Fam Res Tm Green) [address] [place] [address] Group Edilberto QUIROZ[facility] ([facility])(Sco tt [facility] Fam Res Tm Green) TELE CONSULT [id number] Med RefKRYSTEN Nesbitt 01/[address] [place] [address] Group Edilberto QUIRO[facility] ([facility])(S cott [facility] Fam Res Tm Green) [address] [place] [address] Edilberto QUIROZB ([facility])(Sco tt [facility] Fam Res Tm Green) OUTPATIENT [id number] f/u diabete KRYSTEN Melendrez 03/04 Released w/o Limitations [address] [place] [address] Edilberto QUIROZB ([facility])(S cott [facility] Fam Res Tm Green) [facility] Medical [facility] Edilberto [facility]IROZB ([facility])(Sco tt [facility] Fam Res Tm Green) OUTPATIENT [id number] lower back pain MICHELE DEEPAK Mirza 08/24 Released w/o Limitations [facility] Medical [facility] Edilberto QUIRO[facility] ([facility])(S cott [facility] Fam Res Tm Green) [facility] Medical [facility] Edilberto QUIROZB ([facility])(Sco tt [facility] FAMRES Tm Blue) OUTPATIENT [id number] back pain SANDY SALDIVAR 09/23 Released w/o Limitations [facility] [employer] ([facility])(S cott [facility] FAMRES Tm Blue) [facility] Medical Group [employer] [facility] ([facility])(Sco tt [facility] FAMRES Tm Blue) TELE CONSULT [id number] KAILEY Godfrey 09/30 [facility] Medical Group [employer] [facility] ([facility])(S cott [facility] FAMRES Tm Blue) [facility] Medical [facility] Edilberto [facility]ZB ([facility])(Sco tt [facility] Fam Res Tm Green) OUTPATIENT [id number] left hip pain DEEPAK MOFFETT W 12/13 Released w/o Limitations [facility] Group Edilberto [facility]OW[facility]ER ([facility])(S cott [facility] Fam Res Tm Green) [address] [place] [address] Edilberto [facility]Sco tt [facility] FAMRES Tm Blue) OUTPATIENT [id number] left hp pain getting worse AYDIN CAMPUZANO R 01/05 Released w/o Limitations [address] [place] [address] [facility]to [facility]S cott [facility] FAMRES Tm Blue) [address] [place] [address] [facility]il[facility]to [facility]Fam bradley Practice Procedure s) OUTPATIENT [id number] Acup-In itial for left hip pain SABI HALEY R 03/01 Released w/o Limitations [address] [place] [address] [facility]F amily Practic e Procedu res) [address] [place] [address] [facility]to [facility]Fam bradley Practice Procedure s) OUTPATIENT [id number] Acup f/u-betito nt pain, localiz ed in the hip HALEY SABI R 03/22 Released w/o Limitations [address] [place] [address] [facility]F amily Practic e Procedu res) [address] [place] [address] [facility]Fam bradley Practice Procedure s) OUTPATIENT [id number] Acup f/u for left hip pain SABI HALEY R 04/12 Released w/o Limitations [address] [place] [address] Edilberto [facility]ER ([facility])(F amily Practic e Procedu res) [address] [place] [address] [place] [facility] Procedure s) OUTPATIENT [id number] Acup f/u MIGUEL ALLEN 04/26 Released w/o Limitations [address] [place] [address] [place] [facility] [place] Pract[place] e Procedu res) [address] [place] [address] Edilberto FOWLER ([facility] [place] OUTPATIENT [id number] diabete s KRYSTEN PAULA 06/23 Released w/o Limitations [address] [place] [address] Edilberto FOWLER ([facility]S [facility] [place]) [address] [place] [address] [place] [facility] Non-GME FHI1) OUTPATIENT [id number] ACUTE MEMORY LOSES [id number] C# JULES PORTER 06/28 Released w/o Limitations [employer] ([facility]F amily Practic e Non-GME FHI1) [employer] ([facility]Sco [facility] [place] TELE CONSULT [id number] Paperwo KRYSTEN Guillaume 07/13 [employer] ([facility]S cott [facility] [place]) [employer] ([facility]Sco tt [facility] [place]) OUTPATIENT [id number] f/u diabete KRYSTEN Melendrez 09/17 Released w/o Limitations [employer] ([facility]S cott [facility] [place]) [employer] ([facility])(Aud iology) OUTPATIENT [id number] Hearing test/ARVIZU request CAROLE ELIAS 12/13 Released w/o Limitations [employer] ([facility])(A udiolog y) [employer] ([facility]Sco tt [facility] [place]) OUTPATIENT [id number] f/u PETTY JEFFERY 02/20 Released w/o Limitations [employer] ([facility]S cott [facility] [place] [employer] ([facility]Aud iology) OUTPATIENT [id number] ARVIZU order CAROLE ELIAS 07/18 Released w/o Limitations [employer] ([facility]A udiolog y) [employer] ([facility]Aud iology) OUTPATIENT [id number] LENORA CAROLE ELIAS 08/14 Released w/o Limitations [employer] ([facility]A udiolog y) [employer] ([facility]Aud iology) OUTPATIENT [id number] KO CAROLE ELIAS 09/20 Released w/o Limitations [employer] ([facility]A udiolog y) [employer] ([facility]Aud iology) OUTPATIENT [id number] lost hearing aid CAROLE ELIAS 10/07 Released w/o Limitations [employer] ([facility]A udiolog y) [employer] QUIROZ ([facility]Aud iology) OUTPATIENT [id number] LENORA JADA, CAROLE A 12/16 Released w/o Limitations [employer] [facility] ([facility]A udiolog y) [employer] [facility] ([facility]Aud iology[facility] OUTPATIENT [id number] hearing aid/lauren t JADA CAROLE A 04/11 Released w/o Limitations [employer] ([facility]A udiolog y) [employer] ([facility]Aud iology) OUTPATIENT [id number] KO JADA CAROLE A 08/07 Released w/o Limitations [employer] ([facility])(A udiolog y) [facility] CONFORMITY EVALUATION [id number] [id number] Diagnos is: ICD-10- CM H91.93 Unspeci fied hearing loss, bilater YANIRA Dasilva 09/11 [facility] Outpatient Encounter [id number] 11/21 [facility] Outpatient Encounter [id number] [id number] MET DARRYL GOLUD 12/11 [facility] En[facility] [id number] [id number] JOSÉ ANTONIO CORCORAN M 12/15 [facility] Outpatient Encounter [id number] [id number] 03/05 [facility] Encounter [id number] NATIVIDAD CRUZ 03/08 [facility] OFF[facility] O/P EST MOD 30 MIN [id number] Diagnos is: ICD-10- CM I10 Essenti al (primar y) hyperte nsion TORI KAZ Yolanda 03/09 [facility] Outpatient Encounter [id number] 03/13 [facility] Outpatient Encounter [id number] [id number] MARILYN BURROUGHS 04/12 [facility] PSYTX W PT 30 MINUTES [id number] [id number] Diagnos is: ICD-10- CM F41.9 Anxiety disorde r, unspeci fied Edin LEHMAN J 04/19 [facility] Outpatient Encounter [id number] Edin LEHMAN J 04/19 [facility] OFFICE O/P NEW LOW 30 MIN [id number] Diagnos is: ICD-10- CM S05.02X A Inj conjunc tiva and corneal abrasio n w/o fb, left eye, init PASCUAL PABON 05/17 [facility] OFFICE O/P EST LOW 20 MIN [id number] Diagnos is: ICD-10- CM S05.02X D Inj conjunc tiva and corneal abrasio n w/o fb, left eye, subs PASCUAL PABON 05/18 [facility] OFFICE O/P EST LOW 20 MIN [id number] Diagnos is: ICD-10- CM S05.02X D Inj conjunc tiva and corneal abrasio n w/o fb, left eye, subs PASCUAL PABON ODALIS Smith 05/22 [facility] PSYTX W PT 30 MINUTES [id number] [id number] Diagnos is: ICD-10- CM F41.9 Anxiety disorde r, unspeci fied Edin LEHMAN J 05/24 [facility] HEARING AID REPAIR/MOD IFYING [id number] Diagnos is: ICD-10- CM H90.3 Sensori neural hearing loss, bilLuis Cunha N 07/18 [facility] Outpatient Encounter [id number] [id number] Edin LEHMAN 09/06 [facility] Outpatient Encounter [id number] [id number] 09/06 [facility] Outpatient Encounter [id number] Edin LEHMAN 09/07 [facility] Outpatient Encounter [id number] [id number] Edin LEHMAN 09/10 [facility] Outpatient Encounter [id number] [id number] 09/11 [facility] Outpatient Encounter [id number] [id number] 09/17 [facility] NQHP OL DIG ASSMT&MGMT 5-10 [id number] [id number] Diagnos is: ICD-10- CM E11.9 Type 2 diabete s mellitu s without complic ations SOWMYA SWANSON 09/26 [facility] 30 MINUTES [id number] Diagnos is: ICD-10- CM F41.9 Anxiety disorde r, unspeci fiEdin Montez ERA J 09/27 [facility] Outpatient Encounter [id number] Edin LEHMAN J 09/27 [facility] MTMS BY PHARM ADDL 15 MIN [id number] [id number] Diagnos is: ICD-10- CM E11.9 Type 2 diabete s mellitu s without complic ations CARYN REGANON M 10/11 [facility] Outpatient Encounter [id number] 10/12 [facility] PSYTX W PT 30 MINUTES [id number] Diagnos is: ICD-10- CM F41.9 Anxiety disorde r, unspeci Edin Felton ERA J 10/23 [facility] Outpatient Encounter [id number] 11/16 [facility] Outpatient Encounter [id number] 11/16 [facility] PSYTX W PT 30 MINUTES [id number] [id number] Diagnos is: ICD-10- CM F41.9 Anxiety disorde r, unspeci Edin Felton ERA J 11/23 [facility] PS[facility] W PT 30 MINUTES [id number] [id number] Diagnos is: ICD-10- CM F41.9 Anxiety disorde r, unspeci Edni Felton 11/30 [facility] Outpatient Encounter [id number] 12/13 [facility] Outpatient Encounter [id number] 01/05 [facility] Outpatient Encounter [id number] 01/17 [facility] Outpatient Encounter [id number] 01/18 [facility] Outpatient Encounter [id number] 01/29 [facility] Procedures Combined list of: 1) Procedures from Department of Veterans Affairs facilities going back up to thelast 18 months, not all [place] non-surgical procedures are included; 2) All procedures from the Department of Defense facilities. Procedure Procedure Type Code Date Perfomer Nadya Jj e Supervised Ordering / Handling / Fitting Patient Devices Supervised Ordering / Handling / Fitting Patient Devices 50225 08/07/19 10 CAROLE ELIAS Fitting/orientation/ checking of hearing aid 08/07/19 10 CAROLE ELIAS Hearing Aid Check Hearing Aid Check 14541 08/07 10 CAROLE ELIAS Repair/modification of a hearing aid 04/15/[address] Supervised Ordering / Handling / Fitting Patient Devices Supervised Ordering / Handling / Fitting Patient Devices 41740 04/15/20 09 CAROLE ELIAS Electroacoustic Evaluation For Hearing Aid Electroacoustic Evaluation For Hearing Aid 03487 04/15/20 09 CAROLE ELIAS Hearing Aid Check - Binaural Hearing Aid Check - Binaural 95042 04/15/[address] Supervised Ordering / Handling / Fitting Patient Devices Supervised Ordering / Handling / Fitting Patient Devices 14576 12/17/19 09 CAROLE ELIAS Hearing Aid Check - Binaural Hearing Aid Check - Binaural 24565 12/17/19 09 CAROLE ELIAS Hearing aid or a istive listening device/supplies/acce ories, not otherwise specified 10/08/[address] Supervised Ordering / Handling / Fitting Patient Devices Supervised Ordering / Handling / Fitting Patient Devices 35120 10/08/19 09 CAROLE ELIAS Hearing Aid Check Hearing Aid Check 11463 10/[address] Supervised Ordering / Handling / Fitting Patient Devices Supervised Ordering / Handling / Fitting Patient Devices 72052 09/21/19 09 CAROLE ELIAS Fitting/orientation/ checking of hearing aid 09/21/19 09 CAROLE ELIAS Hearing Aid Check - Binaural Hearing Aid Check - Binaural 25065 09/21/19 09 CAROLE ELIAS Hearing aid, digital, binaural, BTE 08/14/19 09 CAROLE ELIAS Battery for use in hearing device 08/14/[address] Supervised Ordering / Handling / Fitting Patient Devices Supervised Ordering / Handling / Fitting Patient Devices 34323 08/14/19 09 CAROLE ELIAS Fitting/orientation/ checking of hearing aid 08/14/19 09 CAROLE ELIAS Hearing Aid Check - Binaural Hearing Aid Check - Binaural 16645 08/14/19 09 CAROLE ELIAS Patient Counseling Medical Management Individual Patient Patient Counseling Medical Management Individual Patient 91850 08/14/19 09 CAROLE ELIAS Ear impre ion, each 07/18/19 09 CAROLE ELIAS Hearing aid or a istive listening device/supplies/acce ories, not otherwise specified 07/18/[address] Supervised Ordering / Handling / Fitting Patient Devices Supervised Ordering / Handling / Fitting Patient Devices 92043 07/18/19 09 CAROLE ELIAS Training And Self-Care Skills Training And Self-Care Skills 68992 07/18/19 09 CAROLE ELIAS Hearing Aid Examination and Selection - Binaural Hearing Aid Examination and Selection - Binaural 64475 07/18/19 09 CAROLE ELIAS Comprehensive Audiometry Comprehensive Audiometry 53900 12/14/19 08 CAROLE ELIAS Audiologic Impedance Testing Audiologic Impedance Testing 42009 12/14/19 08 CAROLE ELIAS Training And Self-Care Skills Training And Self-Care Skills 47685 12/14/19 08 CAROLE ELIAS Osteopathic Manip Treatment (OMT) 1-2 Body Regions Involved Osteopathic Manip Treatment (OMT) 1-2 Body Regions Involved 93843 04/26/20 07 MIGUEL ALLEN Arthrocentesis Injection Of Hip Joint Arthrocentesis Injection Of Hip Joint 04/26/20 07 MIGUEL ALLEN Acupunct One Or More [place] W/ Stimulation Initial 15 Min Acupunct One Or More [place] W/ Stimulation Initial 15 Min 25567 04/12/20 07 SABI HALEY Acupunct One Or More [place] W/O Stimulation Initial 15 Min Acupunct One Or More [place] W/O Stimulation Initial 15 Min 80216 04/12/20 07 SABI HALEY Acupunct One Or More [place] W/O Stimulation Initial 15 Min Acupunct One Or More [place] W/O Stimulation Initial 15 Min 12757 03/22/20 07 SABI HALEY locals around glut DoD Acupunct One Or More [place] W/ Stimulation Initial 15 Min Acupunct One Or More [place] W/ Stimulation Initial 15 Min 16427 03/22/20 07 SABI HALEY ofelia chain local glut and lat gb merid DoD Acupunct One Or More [place] W/O Stimulation Initial 15 Min Acupunct One Or More [place] W/O Stimulation Initial 15 Min 90803 03/01/20 07 SABI HALEY Acupunct One Or More [place] W/ Stimulation Initial 15 Min Acupunct One Or More [place] W/ Stimulation Initial 15 Min 38965 03/01/20 07 SABI HALEY Hearing Aid Check - Binaural Hearing Aid Check - Binaural 74050 06/30/20 05 SALDIVARMAURICIO Hearing Aid Check - Binaural Hearing Aid Check - Binaural 39175 06/22/20 05 SALDIVARMAURICIO CARBAJAL Electroacoustic Evaluation For Hearing Aid - Binaural Electroacoustic Evaluation For Hearing Aid - Binaural 45376 02/27/20 05 SALDIVARAMURICIO Hearing Aid Check - Binaural Hearing Aid Check - Binaural 16976 02/27/20 05 SALDIVARMAURICIO Hearing Aid Check Hearing Aid Check 23750 01/12 05 SALDIVARMAURICIO Fitting/orientation/ checking of hearing aid 11/19/19 05 SALDIVARMAURICIO CARBAJAL Hearing Aid Examination and Selection - Binaural Hearing Aid Examination and Selection - Binaural 55176 10/27/19 05 SALDIVARMAURICIO CARBAJAL Ear impre ion, each 10/27/19 05 SALDIVARMAURICIO CARBAJAL Evoked Otoacoustic Karrie ions Limited 05/12/20 04 MAURICIO SALDIVAR Comprehensive Audiometry Comprehensive Audiometry 67300 05/12/20 04 SALDIVARMAURICIO Tympanometry Tympanometry 94386 05/12/20 04 SALDIVARMAURICIO CARBAJAL Acoustic Reflex Decay Test Acoustic Reflex Decay Test 63561 05/12/20 04 SALDIVARMAURICIO CARBAJAL Acoustic Reflex Testing 05/12/20 04 MAURICIO SALDIVAR FITTING/ORIENTATION/ CHECKING OF HEARING AID 08/07/19 10 DoD REPAIR/MODIFICATION OF A HEARING AID 04/11/20 09 DoD HANDLING,CONVEY,&/AN Y OTH SERV,CONN W IMP OF ORD INV DEV (EG,DESIGN,FIT,PCK,H ND,DEL/MAIL) WHEN DEV SUCH ORTH,PROT,PROSTH,ARAVIND ,OUTSIDE LAB/SHOP BUT ITEM ISABEL,&ARE TO BE FIT&ADJ,ATT PHYS/OTH QUAL HCP 12/17/19 09 DoD HANDLING,CONVEY,&/AN Y OTH SERV,CONN W IMP OF ORD INV DEV (EG,DESIGN,FIT,PCK,H ND,DEL/MAIL) WHEN DEV SUCH ORTH,PROT,PROSTH,ARAVIND ,OUTSIDE LAB/SHOP BUT ITEM ISABEL,&ARE TO BE FIT&ADJ,ATT PHYS/OTH QUAL HCP 10/08/19 09 [facility]D FITTING/ORIENTATION/ CHECKING OF HEARING AID 09/21/19 09 [facility] FITTING/ORIENTATION/ CHECKING OF HEARING AID 08/14/19 09 [facility] HEARING AID OR ASSISTIVE LISTENING DEVICE/SUPPLIES/ACCE SSORIES, NOT OTHERWISE SPECIFIED 07/18/19 09 [facility] SELF-CARE/HOME MANAGMENT TRAIN (EG,ACT OF DAILY LIVING (ADL) &COMPENSAT TRAIN,MEAL PREPARATION,SAFETY PROCS,AND INSTRUCT IN USE OF ASST TECHNOLOGY DEV/ADPT EQUIP) DIR ONE-ON-ONE CONT,EA 15 MINUTES 12/14/19 08 [facility] INJECTION, TRIAMCINOLONE ACETONIDE, NOT OTHERWISE SPECIFIED, 10 MG 04/26/20 07 [facility] ACUPUNCTURE, 1 OR MORE NEEDLES; WITH ELECTRICAL STIMULATION, INITIAL 15 MINUTES OF PERSONAL ONE-ON-ONE CONTACT WITH THE PATIENT 04/12/20 07 [facility] ACUPUNCTURE, 1/MORE NEEDLES; WO ELECTRICAL STIMULATION, EA ADDITIONAL 15 MINUTES, PERSONAL ONE-ON-ONE CONTACT W THE PATIENT, W RE-INSERTION, NEEDLE(S) (LIST SEPARATELY ADDITION CODE, 1 PROCEDURE) 03/22/20 07 [facility] ACUPUNCTURE, 1/MORE NEEDLES; W ELECTRICAL STIMULATION, EA ADDITIONAL 15 MINUTES, PERSONAL ONE-ON-ONE CONTACT W THE PATIENT, W RE-INSERTION, NEEDLE(S) (LIST SEPARATELY ADDITION CODE, 1 PROCEDURE) 03/01/20 07 [facility] HEARING AID CHECK; BINAURAL 06/30/20 05 [facility] HEARING AID CHECK; BINAURAL 06/22/20 05 [facility] HEARING AID CHECK; BINAURAL 02/27/20 05 [facility] HEARING AID CHECK; MONAURAL 01/13/20 05 [facility] FITTING/ORIENTATION/ CHECKING OF HEARING AID 11/19/19 05 [facility] HEARING AID EXAMINATION AND SELECTION; BINAURAL 10/27/19 05 [facility] ARTHROCENTESIS, ASPIRATION AND/OR INJECTION, MAJOR JOINT OR BURSA (EG, SHOULDER, HIP, KNEE, SUBACROMIAL BURSA); WITHOUT ULTRASOUND GUIDANCE 05/20/20 04 [facility] ACOUSTIC REFLEX TESTING, THRESHOLD 05/12/20 04 [facility] ARTHROCENTESIS, ASPIRATION AND/OR INJECTION, INTERMEDIATE JOINT OR BURSA (EG, TEMPOROMANDIBULAR, ACROMIOCLAVICULAR, WRIST, ELBOW OR ANKLE, OLECRANON BURSA); WITHOUT ULTRASOUND GUIDANCE 01/01/20 04 [facility] ARTHROCENTESIS, ASPIRATION AND/OR INJECTION, MAJOR JOINT OR BURSA (EG, SHOULDER, HIP, KNEE, SUBACROMIAL BURSA); WITHOUT ULTRASOUND GUIDANCE 11/28/19 DoD ARTHROCENTESIS, ASPIRATION AND/OR INJECTION, INTERMEDIATE JOINT OR BURSA (EG, TEMPOROMANDIBULAR, ACROMIOCLAVICULAR, WRIST, ELBOW OR ANKLE, OLECRANON BURSA); WITHOUT ULTRASOUND GUIDANCE 11/14/19 [facility] PHYSICAL THERAPY RE-EVALUATION 09/25/19 04 DoD MANUAL THERAPY TECHNIQUES (EG, MOBILIZATION/ MANIPULATION, MANUAL LYMPHATIC DRAINAGE, MANUAL TRACTION), 1 OR MORE REGIONS, EACH 15 MINUTES 09/23/19 04 DoD THERAPEUTIC PROCEDURE, 1 OR MORE AREAS, EACH 15 MINUTES; THERAPEUTIC EXERCISES TO DEVELOP STRENGTH AND ENDURANCE, RANGE OF MOTION AND FLEXIBILITY 09/20/19 04 DoD THERAPEUTIC PROCEDURE, 1 OR MORE AREAS, EACH 15 MINUTES; THERAPEUTIC EXERCISES TO DEVELOP STRENGTH AND ENDURANCE, RANGE OF MOTION AND FLEXIBILITY 09/19/19 DoD MANUAL THERAPY TECHNIQUES (EG, MOBILIZATION/ MANIPULATION, MANUAL LYMPHATIC DRAINAGE, MANUAL TRACTION), 1 OR MORE REGIONS, EACH 15 MINUTES 09/17/19 04 DoD MANUAL THERAPY TECHNIQUES (EG, MOBILIZATION/ MANIPULATION, MANUAL LYMPHATIC DRAINAGE, MANUAL TRACTION), 1 OR MORE REGIONS, EACH 15 MINUTES 09/09/19 DoD PHYSICAL THERAPY RE-EVALUATION 09/02/19 04 DoD INJECTION, FENTANYL CITRATE, 0.1 MG 08/19/19 DoD APPLICATION OF A MODALITY TO 1 OR MORE AREAS; ULTRASOUND, EACH 15 MINUTES 08/14/19 DoD APPLICATION OF A MODALITY TO 1 OR MORE AREAS; IONTOPHORESIS, EACH 15 MINUTES 08/13/19 DoD APPLICATION OF A MODALITY TO 1 OR MORE AREAS; IONTOPHORESIS, EACH 15 MINUTES 08/12/19 DoD APPLICATION OF A MODALITY TO 1 OR MORE AREAS; HOT OR COLD PACKS 08/09/19 DoD APPLICATION OF A MODALITY TO 1 OR MORE AREAS; HOT OR COLD PACKS 08/07/19 04 DoD THERAPEUTIC PROCEDURE, 1 OR MORE AREAS, EACH 15 MINUTES; THERAPEUTIC EXERCISES TO DEVELOP STRENGTH AND ENDURANCE, RANGE OF MOTION AND FLEXIBILITY 08/01/19 DoD THERAPEUTIC PROCEDURE, 1 OR MORE AREAS, EACH 15 MINUTES; THERAPEUTIC EXERCISES TO DEVELOP STRENGTH AND ENDURANCE, RANGE OF MOTION AND FLEXIBILITY 07/30/19 DoD NONINVASIVE EAR OR PULSE OXIMETRY FOR OXYGEN SATURATION; SINGLE DETERMINATION 07/02/20 [facility] DETERMINATION OF REFRACTIVE STATE 06/14/20 [facility] PERCUTANEOUS TESTS (SCRATCH, PUNCTURE, PRICK) WITH ALLERGENIC EXTRACTS, IMMEDIATE TYPE REACTION, INCLUDING TEST INTERPRETATION AND REPORT, SPECIFY NUMBER OF TESTS 06/14/20 02 [facility] CARDIOVASCULAR STRESS TEST USING TREADMILL 02/24/19 92 [facility] DIAGNOSTIC ULTRASOUND OF HEART 02/24/19 92 [facility] Social History Combined list of available smoking, tobacco, and other social history from Department of Defense and Veterans Affairs facilities. 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 [facility] Plan of Care List of future care activities from Department of Veterans Affairs facilities. Additional future care activities may be listed in the Assessment and Plan section. Date/Time Care Activity Care Activity Detail Facili ty 03/21/2025 AMBULATORY - MEDICINE AMBULATORY - MEDICI NE [facility]
--- OUTSIDE RECORDS SUMMARY | 2025-03-12 09:12 | XMS_ITS | Clinical Summary ---
Author Organization [facility] Address [address] [place] [address] Care Team Providers Care Thread Separator Name Role Phone Anuradha España Primary Care Provider [phone] Source Comments [facility],non-owned Affiliates and Associated Physician Practices is amultiple site organization consisting of ambulatory clinics and hospital sitesin [place], [place], [place] and [place]. This disclosure is being madepursuant to the Care Everywhere program and may not contain all information available regarding this patient. Last updated 18.[facility] Allergies No known active allergies Medications * Be aware that medications may not be up to date on this document. Alwaysverify current medications with the patient. Liraglutide (VICTOZA SC) Active canagliflozin-m etformin (INVOKAMET) 150-1000 MG tablet Take 1 (one) tablet by mouth 2 times daily with morning and evening meal Active dutasteride (AVODART) 0.5 MG capsule Take 0.5 mg by mouth once daily Active donepezil (ARICEPT) 10 MG tablet Take 10 mg by mouth at bedtime Active lisinopril (PRINIVIL;ZESTR IL) 5 MG tablet Take 5 mg by mouth once daily Active atorvastatin (LIPITOR) 10 MG tablet Take 2.5 mg by mouth at bedtime Active omeprazole (PRILOSEC) 20 MG capsule Take 1 (one) capsule by mouth daily before breakfast Active metoprolol succinate XL 24hr (TOPROL XL) 12.5 TABS tablet Take 2 (two) Half Tablet by mouth once daily Active eszopiclone (LUNESTA) 3 MG tablet Take 3 mg by mouth once daily Active Acetaminophen-C odeine 300-30 MG 0 Active acetaminophen-c odeine (TYLENOL #3) 300-30 MG tablet TAKE 1 TABLET BY MOUTH 3 (THREE) TIMES DAILY. INDICATIONS: CHRONIC PAIN 1 Active blood glucose monitoring device (ONE TOUCH ULTRA) device Use as directed 0 Active desvenlafaxine ER 24hr (KHEDEZLA) 100 MG tablet 1 Active empagliflozin (JARDIANCE) 25 MG tablet 0 Active blood glucose (PRECISION QID TEST) test strip Active Insulin Pen Needle (BD PEN NEEDLE PRADEEP U/F) 32G X 4 MM MISC Active lancets Use as directed to test blood sugar 0 Active metFORMIN (GLUCOPHAGE) 1000 MG tablet TAKE ONE TABLET BY MOUTH TWICE A DAY WITH MEALS 1 Active sildenafil (VIAGRA) 100 MG tablet 0 Active tamsulosin (FLOMAX) 0.4 MG capsule 0 Active tiZANidine (ZANAFLEX) 4 MG tablet 0 Active aspirin (ASPIRIN) 325 MG tablet Take 325 mg by mouth once daily Active Active Problems Problem Noted Date Diagnosed Date Hepatic steatosis 11/11/2023 Dysphagia 11/11/2023 Abnormal weight loss 02/10/2021 GERD (gastroesophageal reflux disease) 1 Screen for colon cancer 11/16/2018 Resolved Problems Problem Noted Date Diagnosed Date Resolved Date Constipation 02/10/2021 12/09/2023 Social History Tobacco Use Types Packs/Day Years Used Date Smoking Tobacco: Never Smokeless Tobacco: Never Alcohol Use Standard Drinks/Week Comments No 0 (1 standard drink = 0.6 oz pur e alcohol) socially- 6 pack a year Sex and Gender Information Value Date Recorded Sex Assigned at Not on file 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 Gender Identity Not on file Sexual Orientation Not on file Last Filed Vital Signs Vital Sign Reading Time Taken Comments Blood Pressure 118/73 11/11/2023 10:38 AM CDT Pulse 69 11/11/2023 10:38 AM CDT Temperature 36.7 C (98 F) 03/02/2021 7:38 AM CDT Respiratory Rate 14 03/02/2021 8:00 AM CDT Oxygen Saturation 97% 11/11/2023 10:38 AM CDT Inhaled Oxygen Concentration - - Weight 70.6 kg (155 lb 9.6 oz) 11/11/2023 10:38 AM CDT Height 177.8 cm (5' 10) 03/02/2021 6:38 AM CDT Body Mass Index 22.33 03/02/2021 6:38 AM CDT Plan of Treatment Health Maintenance Due Date Last Done Comments DTAP/TDAP/TD VACCINES (1 - Tdap) 1965 PNEUMOCOCCAL VACCINE 50+ (1 of 1 - PCV) 1996 ZOSTER VACCINE (1 of 2) 1996 Respiratory Syncytial Virus (RSV) Vaccine Pt: or over 60 yrs (1 - 1-dose 75+ series) 2021 COVID-19 VACCINE ( - season) 2024 09/16/2020, 08/19/2020 DEPRESSION SCREENING 07/11/2024 MEDICARE AWV CALENDAR YEAR 2024 INFLUENZA VACCINE (#1) 2025 , 04/04/2020, 03/28/2019, Additional history exists HEPATITIS C SCREENING Completed 12/08/2016 HEPATITIS B VACCINE Aged Out No longe r eligible based on patient's age to complete this topic HIB VACCINE Aged Out No longer eligi ble based on patient's age to complete this topic HPV VACCINE Aged Out No longer eligi ble based on patient's age to complete this topic MENINGOCOCCAL (Group B) VACCINE SHARED DECISION-MAKING Aged Out No longer eligible based on patient's age to complete this topic MENINGOCOCCAL GROUPS A/C/Y/W VACCINE Aged Out No longer eligible based on patient's age to complete this topic Insurance AETNA MEDICARE ADV AETNA Care Teams Thread Separator Relationship Specialty Start Date End Date Anuradha España DO [address] [place], [place] [id number] PCP - General 10/25/22
--- OUTSIDE RECORDS SUMMARY | 2025-03-12 09:13 | XMS_ITS | Clinical Summary ---
Author Organization [facility] Address [address] [place] [address] Care Team Providers Care Gun Sealing Machine Operator Name Role Phone Anuradha España MD Primary Care Provider [phone] Erika Rebolledo FLORIST MANAGER Unavailable Amilcar Parsons PhD Unavailable Allergies No known active allergies Medications dutasteride (AVODART) 0.5 mg capsule take 1 capsule by oral route every day 0 0 4 Active liraglutide (VICTOZA 2-IMMANUEL) 0.6 mg/0.1 mL (18 mg/3 mL) injection inject 0.2 milliliter by subcutaneous route every day 0 Syringe 0 4 Active eszopiclone (LUNESTA) tabletIndicatio ns:Insomnia Take 1 tablet (3 mg total) by mouth nightly Take immediately before bedtime Active blood glucose diagnostic (NON-FORMULARY) strip Active pen needle, diabetic 32 gauge x 5/32 needle Active metoprolol XL (TOPROL-XL) 25 mg 24 hr tablet Take 1 tablet (25 mg total) by mouth daily 2 9 Active tiZANidine (ZANAFLEX) 4 mg tablet Take 1 tablet (4 mg total) by mouth 3 (three) times a day 3 9 Active testosterone cypionate (DEPO-TESTOTERO NE) 200 mg/mL injection INJECT 1.25ML SUBCUTANEOUS EVERY 2 WEEKS 2 9 Active Jardiance 25 mg tablet Take 1 tablet (25 mg total) by mouth daily 1 Active solifenacin (VESIcare) 5 mg tablet 1 Active sildenafiL (VIAGRA) 100 mg tablet Take 1 tablet (100 mg total) by mouth as needed 2 Active cholecalciferol (VITAMIN D-3) 5,000 unit capsule Take 1 capsule (5,000 Units total) by mouth daily Active OneTouch Delica Plus Lancet 33 gauge misc 2 Active omeprazole (PriLOSEC) 20 mg capsule Take 1 capsule (20 mg total) by mouth daily Active gabapentin (NEURONTIN) 300 mg capsule Take 2 capsules (600 mg total) by mouth daily as needed (RLS) 60 capsule 11 5 01/01/20 26 Active Active Problems Problem Noted Date Diagnosed Date Balance disorder 11/20/2018 Mild cognitive impairment 11/20/2018 Tremor 12/28/2016 Restless legs syndrome (RLS) 12/28/2016 Impacted cerumen 03/18/2015 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 Laryngeal spasm 03/18/2015 Dysphonia 03/18/2015 Vertigo 11/09/2013 Overview (10/13/2016): Vertigo Dizziness 04/05/2011 Nystagmus 04/05/2011 Closed fracture of second cervical vertebra 10/10 Resolved Problems Problem Noted Date Diagnosed Date Resolved Date Occipital neuralgia of left side 03/21/2019 08/01/2019 Encounters Date Type Department Care Team Description 12/31/2024 8:30 AM CDT [facility] Visit [facility] [address] [place] [phone] Charlotte Soto MD Restless legs syndrome (RLS) (Primary Dx); New onset of headaches after age 50 from Last 3 Months Immunizations Immunization Administration Dates Next Due Influenza, Trivalent, IM (LU) 04/10/2012 Surgical History Surgery Date Site/Laterality Comments OTHER SURGICAL HISTORY 2010 fx C2 OTHER SURGICAL HISTORY benign prostatic hypertrophy PROSTATE SURGERY prostate surgery OTHER SURGICAL HISTORY C-2 Fracture: Halo Medical History Medical History Date Comments Insomnia insomnia Hx Other Medical neck pain Hyperlipidemia Hyperlipidemia Hypertension Hypertension Diabetes mellitus (HCC) diabetes mellitus Hx Other Medical C-2 Fracture Hx Other Medical Benign position al vertigo Hx Other Medical Occipital neura lgia Diabetes mellitus (HCC) GERD (gastroesophageal reflux disease) Family History Medical History Relation Name Comments Diabetes Father Diabetes mellit us; Heart disease Father cardiovascular disease; Hypertension Father Hypertension; COPD Mother COPD; Cause of : COPD Alzheimer's disease Other 1 Family h istory of Alzheimer's disease; Cancer Other 2 Family history of Cancer; Diabetes Other 3 Family history of Diabetes mellitus; Heart disease Other 4 Family history of Heart disease; Hypertension Other 5 Family history of Hypertension; Relation Name Status Comments Father Mother (Age 86) Other 1 Other 2 Other 3 Other 4 Other 5 Social History Tobacco Use Types Packs/Day Years Used Date Smoking Tobacco: Never Smokeless Tobacco: Never Alcohol Use Standard Drinks/Week Comments Yes 0 (1 standard drink = 0.6 oz pur e alcohol) AUDIT-C Answer Date Recorded Q1: How often do you have a drink containing alc ohol? Monthly or less 12/31/2024 Q2: How many drinks containi ng alcohol do you have on a typical day when you are drinking? 1 or 2 12/31/2024 Q3: How often do you have si x or more drinks on one occasion? 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 Gender Identity Not on file Sexual Orientation Not on file Obstetrics History Last Filed Vital Signs Vital Sign Reading Time Taken Comments Blood Pressure 102/64 12/31/2024 8:02 AM CDT Pulse 59 12/31/2024 8:02 AM CDT Temperature - - Respiratory Rate 16 12/31/2024 8:02 AM CDT Oxygen Saturation 97% 12/31/2024 8:02 AM CDT Inhaled Oxygen Concentration - - Weight 72.6 kg (160 lb) 12/31/2024 8:02 AM CDT Height 177.8 cm (5' 10) 12/31/2024 8:02 AM CDT Body Mass Index 22.96 12/31/2024 8:02 AM CDT Plan of Treatment Health Maintenance Due Date Last Done Comments Depression Screening 1945 Fall Risk Assessment 1945 Hepatitis C Screening 1945 Hepatitis B Screening 1964 Well Visit 65+ 2011 Zoster Vaccine (2 of 3) 08/02/2012 06/07/2012 DTaP/Tdap/Td Vaccine (1 - Tdap) 08/18/2018 08/17/2018, 07/02/2002, 05/06/1998 Covid-19 Vaccine (3 - 2023-2 5 season) 2024 09/16/2020, 08/19/2020 Influenza Vaccine (#1) 2025 , 04/04/2020, 04/10/2019, Additional history exists Colon Cancer Screening-CT Colonography Discontinued 08/21/2012, 04/08/2008 Colon Cancer Screening-Colonoscopy Discontinued 08/21/2012, 04/08/2008 Colon Cancer Screening-DNA Stool Discontinued 08/21/19 13, 04/08/2008 Colon Cancer Screening-FIT Discontinued 08/21/2012, Colon Cancer Screening-FOBT Discontinued 08/21/2012, 0 04/08/2008 Colon Cancer Screening-Sigmoidoscopy Discontinued 08/21/2012, 04/08/2008 Colorectal Cancer Screening Discontinued Pneumococcal vaccine 65+ Completed 019, 07/13/2016, 05/06/1998, Additional history exists Procedures Procedure Name Priority Date/Time Associated Diagnosis Comments COLONOSCOPY 08/21/2012 12:00 AM DEPUTY SHERIFF BAILIFF from Last 3 Months or Most Recently Relevant to Health Maintenance Results * COLONOSCOPY (08/21/2012 12:00 AM DEPUTY SHERIFF BAILIFF) Anatomical Region Laterality Modality Other Narrative 08/21/2012 12:00 AM DEPUTY SHERIFF BAILIFF Ordered by an unspecified provider. Procedure Note Provider, MD Laurent - 08/21/2012 12:00 AM CST PROCEDURE REPORT Patient: LETY HADDAD Account: [id number] Room No: : 1945 Patient Type: [facility] Attend.: Anjum Vinson M.D. Admit Date: 08/21/2012 Dict.: Anjum Vinson M.D. Disch. Date: NAME OF PROCEDURE: Colonoscopy. DATE OF PROCEDURE 08/21/2012 HISTORY A 66-year-old male with blood in stool, prior history of colonic polyps. PHYSICAL EXAMINATION A well-developed male. Lungs are clear. Cardiovascular exam isunremarkable. PROCEDURE Colonoscopy was performed with the SET video endoscope. On digitalexam he has grade 3 hemorrhoids. We inserted the endoscope and advanced it tothe cecum. The colon was not perfectly prepped. We had to use copious amountsof irrigation to wash the fecal effluent off the hernandez, but we laboriouslydid this for the length of the colon. The only abnormality we could see wasa non-inflamed diverticular disease of the sigmoid; however, no other abnormalities were known, and he tolerated the procedure withoutdifficulty. POSTOPERATIVE DIAGNOSES 1. Sigmoid diverticulosis. 2. Hemorrhoidal disease, otherwise normal. Anjum Vinson M.D. DR/rosario TD: 08/21/2012 12:12 CC: Dr. Anuradha Jiménez Authenticated by Anjum Vinson MD On 08/23/2012 04:40:18 PM Historical Provider MD ENDOSCOPY PROCEDURES Shelbi l Result from Last 3 Months or Most Recently Relevant to Health Maintenance Insurance [employer] [facility] MEDICARE [place] [address] [facility] LIFE [facility] MEDICARE Care Teams Gun Sealing Machine Operator Relationship Specialty Start Date End Date Anuradha España MD PCP - General 08/08/12 Erika Rebolledo, FLORIST MANAGER [address] [phone] Speech Language Pathologist Speech Therapy 12/12/17 Amilcar Parsons, PhD [address] [phone] Referring Physician Speech Therapy 01/16/18
[2025-03-12 09:57] LABS: Hematocrit 47.1 % (42.0-52.0); Hemoglobin 15.1 g/dL (14.0-18.0); Immature Granulocyte Percent A 0.5 % (0-0.5); Lymphocytes Absolute Auto 1.59 K/mm3 (0.9-3.2); Mean Corpuscular HGB Conc 32.1 g/dl (32-36); Mean Corpuscular Hemoglobin 30.3 pg (26-34); Mean Corpuscular Volume 94.6 fl (80-100); Nucleated Red Blood Cells Absolute Auto 0.000 K/mm3 (0.0-0.012); Nucleated Red Blood Cells Perc 0.0 % (0.0-0.2); Platelet Count Result 226 k/mm3 (150-375); Red Blood Count 4.98 M/mm3 (4.6-6.20); White Blood Count 5.8 K/mm3 (4.5-10.0)
[2025-03-12 10:17] LABS: Alanine Aminotransferase 16 U/L (6-50); Albumin Level 4.2 g/dL (3.5-5.1); Alkaline Phosphatase 55 U/L (38-126); Anion Gap 7 mmol/L (4-12); Aspartate Amino Transferase 25 U/L (17-59); Bilirubin,Total 0.7 mg/dL (0.2-1.3); Blood Urea Nitrogen 24 mg/dL (9-20); Calcium 9.4 mg/dL (8.4-10.2); Carbon Dioxide 28 mmol/L (22-30); Chloride 101 mmol/L (98-107); Cholesterol 125 mg/dL (0-200); Estimated Glomerular Filt Rate > 60; Glucose 121 mg/dL (65-110); HDL Direct 37 mg/dL; Potassium 4.9 mmol/L (3.4-5.0); Sodium 136 mmol/L (137-145); Total Protein 6.8 g/dL (6.3-8.2); Triglycerides 62 mg/dL (<150)
[2025-03-12 10:18] LABS: MALB Creatinine Ratio 34.5 mg/g (0-30)
[2025-03-12 10:49] LABS: Thyroid Stimulating Hormone Reflex 2.710 uIU/mL (0.465-4.68)
== END 2025-03-12 08:58 | disposition home or self-care (01) ==
PROVIDERS: PCP Family Medicine; Visit Provider Family Medicine
DX: E11.21 Type 2 diabetes mellitus with diabetic nephropathy (principal); E55.9 Vitamin D deficiency, unspecified
CPT/HCPCS: 36415; 80053; 80061; 82043; 82306; 84443; 85025

== ENCOUNTER 2025-03-25 15:39 | Emergency (ER) | payer MEDICARE, OTHER, SELFPAY ==
--- OUTSIDE RECORDS SUMMARY | 2014-01-30 02:30 | XMS_ITS | Continuity of Care Document ---
Author Organization [employer] [place] Address [address] [place] [address] [address] [place] [address] Phone Care Team Providers Care Urban Redevelopment Specialist Name Role Phone Cory PT, MS, Jeremy Unavailable Unavailable Procedures Procedure Date PT RE-EVALUATION THERAPEUTIC EXERCISES NEUROMUSCULAR RE-ED FUNC ACTIVITY Changing And Maintaining Body Position-D ischarge Changing And Maintaining Body Position-G oal Medications Name Dose Freq Route DOC Jan THERAPEUTIC EXERCISES NEUROMUSCULAR RE-ED Medications Name Dose Freq Route DOC Jan PT RE-EVALUATION THERAPEUTIC EXERCISES NEUROMUSCULAR RE-ED FUNC ACTIVITY Changing And Maintaining Body Position-C urrent Changing And Maintaining Body Position-G oal Medications Name Dose Freq Route DOC Dec THERAPEUTIC EXERCISES NEUROMUSCULAR RE-ED Medications Name Dose Freq Route DOC Dec THERAPEUTIC EXERCISES NEUROMUSCULAR RE-ED FUNC ACTIVITY 15 MIN Medications Name Dose Freq Route DOC November PT RE-EVALUATION THERAPEUTIC EXERCISES NEUROMUSCULAR RE-ED Medications Name Dose Freq Route DOC November THERAPEUTIC EXERCISES NEUROMUSCULAR RE-ED Medications Name Dose Freq Route DOC November PT EVALUATION THERAPEUTIC EXERCISES Changing And Maintaining Body Position-C urrent Changing And Maintaining Body Position-G oal Medications w/ Name Dose Freq NOT Route No Reason DOC Pain Assess Positive DOC 2013 BMI Normal and DOC 18-64 yo=18.5-25.0 65 + yo=23.0-30.0 No Falls or 1 Fall w/o Injury Screened f or Fall Risk Functional Outcome Assessment documented in the pa Changing And Maintaining Body Position-C urrent Changing And Maintaining Body Position-G oal Advance Directives Directive Yes / No Effective Date File Name No Information Encounters Encounter Description Practice Location Reason(s) For Visit Diagnoses Date Provider Providers Copied on Encounter [address], [id number], tel:[phone] [place] No Information 4 Cory Luna. [address] [place] [address], [facility], . tel: [phone] Referring Provider: Charlotte Soto, [facility], [address]. tel:[phone], [id number], tel:[phone] [place] No Information 4 Cory Luna. [address] [place] [address], [facility], . tel:[phone] Referring Provider: Charlotte Soot, [address], [address]. tel:[phone], [id number], tel:[phone] [place] No Information 4 Cory Luna. [address] [facility], [address], [facility], . tel:[phone] Referring Provider: Charlotte Soto, 300[address] [facility] [address], [address]. tel:[phone] [address] [place] [address], [place], [place], [id number], tel:[phone] [place] No Information 6-201 4 Cory Jeremy. [address] [place] [address], [address], [place], [facility], . tel:[phone] Referring Provider: Charlotte Soto, 3009 [facility] [address], [address]. tel:[phone] [address] [address], [place], [place], [id number], tel:[phone] [place] No Information 8-201 4 Cory Jeremy. [address] [place] [address], [address], [place], [facility], . tel:[phone] Referring Provider: Charlotte Soto, [address] [facility] [address], [address]. tel:[phone], [id number], tel:[phone] [place] No Information 2-201 4 Cory Jeremy. [address] [place] [address], [address], [place], [facility], . tel:[phone] Referring Provider: Charlotte Soto, 3009 [facility] [address], [address]. tel:[phone], [id number], tel:[phone] [place] No Information 4-201 4 Cory Jeremy. [address] [place] [address], [address], [place], [facility], . tel:[phone] Referring Provider: Charlotte Soto 3009 [facility] [address] [place], [address]. tel:[phone] [employer] [place], 2 [facility] 300, [place], [place], [id number], [place] tel:[phone] Carmelo Abnormality of gaitLack of coordinationDizz iness 6201 4 Cory Luna. [address] [facility], [address], [place], [address], [place]. tel:[phone] Referring Provider: Charlotte Soto, 3009 [facility] [address], [place], [address]. tel:[phone] Family History Family Member Type Diagnosis Age At Onset No Information Payers Payer name Insurance type Covered republican ID Authoriza tiyanna(s) Medicare [place] [id number] Wps For Life CI [id number] Social History Type Description Quantity Date Captured Comments Sex Male Smoking Status No Information Chief Complaint And Reason For Visit No Information Reason For Referral Reason For Referral No Information History Of Present Illness Encounter Date Complaint History Of Prese nt Illness No Information Functional Status Date Functional Assessmen t No Information Instructions Date Instruction Additional Infor mation No Information Assessments Type Assessment Date No Information Patient Care Teams Name Effective Dates (start - stop) Status Members No Information
--- OUTSIDE RECORDS SUMMARY | 2014-01-30 02:30 | XMS_ITS | Continuity of Care Document ---
Author Organization [employer] [place] Address [address] [place] [address] [address] [place] [address] Phone Care Team Providers Care Mine Safety Engineer Name Role Phone Cory PT, MS, Jeremy [...] Diagnoses Date Provider Providers Copied on Encounter [address], [id number], tel:[phone] [place] No Information 4 Cory Luna. [address] [place] [address], [facility], . tel: [phone] Referring Provider: Charlotte Stoo, Formerly named [facility] [address], [address]. tel:[phone], [id number], tel:[phone] [place] No Information 4 Cory Luna. [address] [place] [address], [facility], . tel:[phone] Referring Provider: Charlotte Soto, [address], [address]. tel:[phone], [id number], tel:[phone] [place] No Information [address] [address] [facility], [address], [facility], . tel:[phone] Referring Provider: Charlotte Soto, 3009 [facility] [address], [address]. tel:[phone] [address] [address], [place], [place], [id number], tel:[phone] [place] No Information 6-201 4 Cory Jeremy. [address] [place] [address], [address], [place], [facility], . tel:[phone] Referring Provider: Charlotte Soto, 3009 [facility] [address], [address]. tel:[phone] [address] [address], [place], [place], [id number], tel:[phone] [place] No Information 8-201 4 Cory Jeremy. [address] [place] [address], [address], [place], [facility], . tel:[phone] Referring Provider: Charlotte Soto, 3009 [facility] [address], [address]. tel:[phone], [id number], tel:[phone] [place] No Information 2-201 4 Cory Jeremy. [address] [place] [address], [address], [place], [facility], . tel:[phone] Referring Provider: Charlotte Soto, 3009 [facility] [address], [address]. tel:[phone], [id number], tel:[phone] [place] No Information 4-201 4 Cory Jeremy. [address] [place] [address], [address], [place], [facility], . tel:[phone] Referring Provider: Charlotte Soto 3009 [facility] [address] [place], [address]. tel:[phone] [employer] [place], 2 [facility] 300, [place], [place], [id number], [place] tel:[phone] Carmelo Abnormality of gaitLack of coordinationDizz iness [address] [address] [facility], [address], [place], [address], [place]. tel:[phone] Referring Provider: Charlotte Soto, 3009 [facility] 102, [place], [address]. tel:[phone] Family History Family Member Type Diagnosis Age At Onset No Information Payers Payer name Insurance type Covered alliance party ID Authoriza tiyanna(s) Medicare [place] [id number] Wps For Life CI [id number] Social History Type Description Quantity Date Captured [...]
--- NOTE | ~2025-03-25 | CT_ITS ---
EXAMINATION: CT brain wo con DATE: 03/25/2025 18:29 INDICATION: Head injury. TECHNIQUE: Computed tomography (CT) of the head was performed without intravenous contrast. The mA was adjusted according to patient size. Iterative reconstruction technique was employed. The dose-length product was 681.00 mGy-cm. COMPARISON: Head CT 03/19/2023 FINDINGS: There are scattered areas of low attenuation in the cerebral white matter. There is no intracranial hemorrhage, acute infarction, or abnormal intracranial mass lesion. The ventricles are normal in size. There is mild mucosal thickening in the ethmoid sinuses. The mastoid air cells are normal. IMPRESSION: 1. Stable moderate nonspecific cerebral white matter disease, which likely represents chronic small vessel ischemic disease. Reviewed, dictated and finalized at location K. IMPRESSION: 1. Stable moderate nonspecific cerebral white matter disease, which likely repr esents chronic small vessel ischemic disease.
--- NOTE | ~2025-03-25 | CT_ITS ---
EXAMINATION: CT cervical spine wo con DATE: 03/25/2025 18:29 INDICATION: Head injury. TECHNIQUE: Computed tomography (CT) of the cervical spine was performed without intravenous contrast. Automated exposure control and iterative reconstruction technique were employed. The dose-length product was 335.51 mGy-cm. COMPARISON: Cervical spine CT 03/19/2023 FINDINGS: Alignment is normal. Vertebral body heights are normal. Intervertebral disc heights are normal. There is interbody fusion at C6-C7. There are bridging endplate osteophytes from C3 to C5. There is multilevel facet joint osteoarthritis, severe on the left at C5-C6. There is ankylosis of the left facet joints at C2-C3 and C3-C4. There is mild neural foraminal stenosis at multiple levels on either side. There is mild central canal stenosis at C2-C3, C5-C6, and C6-C7. IMPRESSION: 1. No fracture. 2. Mild cervical spondylosis. Reviewed, dictated and finalized at location K.
--- OUTSIDE RECORDS SUMMARY | 2025-03-25 07:55 | XMS_ITS | Encounter Summary ---
Author Organization [facility] Address [address] [place] [address] Care Team Providers Care Mechanical Integrity Engineer Name Role Phone Anuradha España MD Primary Care Provider [phone] Erika Rebolledo DENSITOMETER READER Unavailable [phone] Amilcar Parsons PhD Unavailable [phone] Reason for Referral * MRI/CAT/PET Scan (Routine) - Closed Specialty Diagnoses / Procedures Referred By Jonathan montana Referred To Contact Radiology Diagnoses Right knee pain, unspecified chronicity Procedures MRI Knee Right WO Contrast Miscellaneous, Not In File [address] [address] Referral ID Status Reason Start Date Expiration Date Visits Re quested Visits Authorized [id number] Closed 02/13/2025 08/12/2025 1 1 Reason for Visit * MRI/CAT/PET Scan (Routine) - Closed Specialty Diagnoses / Procedures Referred By Jonathan montana Referred To Contact Radiology Diagnoses Right knee pain, unspecified chronicity Procedures MRI Knee Right WO Contrast Miscellaneous, Not In File [address] [address] Referral ID Status Reason Start Date Expiration Date Visits Re quested Visits Authorized [id number] Closed 02/13/2025 08/12/2025 1 1 Encounter Details Date Type Department Care Team (Latest Contact Info) Description 03/25/2025 7:55 AM CDT Hospital Encounter [address] [address] Right knee pain, unspecified chronicity Social History Tobacco Use Types Packs/Day Years [...] on file 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 Gender Identity Not on file Sexual Orientation Not on file documented as of this encounter Plan of Treatment Not on file documented as of this encounter Procedures Procedure Name Priority Date/Time Associated Diagnosis Comments MRI KNEE RIGHT WO CONTRAST Schedule Routine, Read Routine (OP Routine) 03/25/2025 8:43 AM CDT Right knee pain, unspecified chronicity documented in this encounter Results * MRI Knee Right WO Contrast (03/25/2025 8:43 AM CDT) Anatomical Region Laterality Modality Lower Extremities Right Magnetic Reson ance 03/25/2025 9:56 AM CDT Narrative 03/25/2025 10:01 AM CDT EXAM DESCRIPTION: MRI KNEE RIGHT WO CONTRAST REASON FOR STUDY: pain in right knee Rt knee pain post fall x 1 year ago Pain, swelling, instability TECHNIQUE: Multiplanar, multisequence MRI of the right knee was performed without contrast. COMPARISON: None available FINDINGS: In the medial compartment, there is an incomplete horizontal tear of the posterior horn. Partial-thickness cartilage loss of the central weight-bearing femoral condyle. In the lateral compartment, there is complex tearing of the meniscal body with predominant inner margin component. Partial-thickness cartilage loss of the tibial plateau and femoral condyle. In the patellofemoral compartment, there is partial-thickness cartilage loss of the patella and lateral trochlea. The cruciate and collateral ligaments are intact. Extensor mechanism enthesophyte formation is present. The popliteus tendon is intact. Small effusion is present with mild synovitis. There are no loose bodies. IMPRESSION: 1. Complex tear of the right lateral meniscal body with predominant inner margin component. 2. Incomplete horizontal tear of the right medial meniscus posterior horn. 3. Mild tricompartmental right knee chondrosis. 4. Small right knee effusion with synovitis. THIS IS AN ELECTRONICALLY VERIFIED FINAL REPORT 03/25/2025 10:01 AM - Electronically signed by Juan Olsen M.D. T: Report ID: [id number] Reading Location: [place] [address] Procedure Note Juan Olsen MD - 03/25/2025 EXAM DESCRIPTION: MRI KNEE RIGHT WO CONTRAST REASON FOR STUDY: pain in right knee Rt knee pain post fall x 1 year ago Pain, swelling, instability TECHNIQUE: Multiplanar, multisequence MRI of the right knee wasperformed without contrast. COMPARISON: None available FINDINGS: In the medial compartment, there is an incomplete horizontaltear of the posterior horn. Partial-thickness cartilage loss of the central weight-bearing femoral condyle. In the lateral compartment, there is complex tearing of the meniscal bodywith predominant inner margin component. Partial-thickness cartilage loss ofthe tibial plateau and femoral condyle. In the patellofemoral compartment, there is partial-thickness cartilageloss of the patella and lateral trochlea. The cruciate and collateral ligaments are intact. Extensor mechanism enthesophyte formation is present. The popliteus tendon is intact. Small effusion is present with mild synovitis. There are no loose bodies. IMPRESSION: 1. Complex tear of the right lateral meniscal body with predominantinner margin component. 2. Incomplete horizontal tear of the right medial meniscus posteriorhorn. 3. Mild tricompartmental right knee chondrosis. 4. Small right knee effusion with synovitis. THIS IS AN ELECTRONICALLY VERIFIED FINAL REPORT 03/25/2025 10:01 AM - Electronically signed by Juan Olsen M.D. T: Report ID: [id number] Reading Location: [place] [address] Tomasa Almanza NP [facility] [place] Final R esult documented in this encounter Visit Diagnoses Diagnosis Right knee pain, unspecified chronicity documented in this encounter Care Teams Mechanical Integrity Engineer Relationship Specialty Start Date End Date Anuradha España MD PCP - General 08/08/12 Erika Rebolledo, DENSITOMETER READER [address] [phone] Speech Language Pathologist Speech Therapy 12/12/17 Amilcar Parsons, PhD [address] [address] Referring Physician Speech Therapy 01/16/18 documented as of this encounter
--- OUTSIDE RECORDS SUMMARY | 2025-03-25 07:55 | XMS_ITS | Encounter Summary ---
Author Organization [facility] Address [address] [place] [address] Care Team Providers Care Tongue Trimmer Name Role Phone Anuradha España MD Primary Care Provider [phone] Erika Rebolledo STOCK PARTS FABRICATOR Unavailable [phone] Amilcar Parsons PhD Unavailable [phone] Reason for Referral * MRI/CAT/PET Scan (Routine) - Closed Specialty Diagnoses / Procedures Referred By Jonathan montana Referred To Contact Radiology Diagnoses Right knee pain, unspecified chronicity Procedures MRI Knee Right WO Contrast Miscellaneous, Not In File [address] [address] Referral ID Status Reason Start Date Expiration Date Visits Re quested Visits Authorized [id number] Closed 02/13/2025 08/12/2025 1 1 Reason for Visit * MRI/CAT/PET Scan (Routine) - Closed Specialty Diagnoses / Procedures Referred By Jonathan montana Referred To Contact Radiology Diagnoses Right knee pain, unspecified chronicity Procedures MRI Knee Right WO Contrast Miscellaneous, Not In File [address] [address] Referral ID Status Reason Start Date Expiration Date Visits Re quested Visits Authorized [id number] Closed 02/13/2025 08/12/2025 1 1 Encounter Details Date Type Department Care Team (Latest Contact Info) Description 03/25/2025 7:55 AM CDT Hospital Encounter [address] [address] Right knee pain, unspecified chronicity Social History [...] on file 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 T: Report ID: [id number] Reading Location: [place] [address] Procedure Note Juan Olsen MD - 03/25/2025 [...] by Juan Olsen M.D. T: Report ID: [id number] Reading Location: [place] [address] Tomasa Almanza NP [facility] [place]ED[place] Final R esult documented in this encounter Visit Diagnoses Diagnosis Right knee pain, unspecified chronicity documented in this encounter Care Teams Tongue Trimmer Relationship Specialty Start Date End Date Anuradha España MD PCP - General 08/08/12 Erika Rebolledo, STOCK PARTS FABRICATOR [address] [phone] Speech Language Pathologist Speech Therapy 12/12/17 Amilcar Parsons, PhD [address] [address] Referring Physician Speech Therapy 01/16/18 documented as of this encounter
[2025-03-25 16:07] VITALS: BP 143/85; PULSE 88; RESP 16; TEMP 36.7; O2SAT 99
--- NOTE | 2025-03-25 17:28 | ED.HEATRA ---
HPI - Head Injury General Chief complaint: Wound/Laceration Stated complaint: head laceration Time Seen by Provider: 03/25/25 16:58 Source: patient Mode of arrival: ambulatory Limitations: no limitations History of Present Illness HPI Narrative: Patient presents with a head injury. He was moving a dresser and he lost his balance. He states he does not exactly know what happened but he does have vestibular issues at baseline and this causes chronic dizziness. He has not yet taken any pain medication and doesn't necessarily knows if he needs it. Does not know his tetanus status but states I'd rather not. 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 Not on anticoagulation. Hearing aids bilaterally. History of a neck fracture which makes it difficult to turn his head at baseline. Related Data Home Medications ?Medication ?Instructions ?Recorded ?Confirmed ?Last Taken ?Type empagliflozin 25 mg tablet 25 mg PO HS 08/15/20 03/19/23 09/29/22 History (Jardiance) eszopiclone 3 mg tablet 3 mg PO HS 08/15/20 03/19/23 09/29/22 History gabapentin 300 mg capsule 300 mg PO HS 08/15/20 03/19/23 09/29/22 History liraglutide 0.6 mg/0.1 mL (18 mg/3 0.6 mg subcut QAM 08/15/20 03/19/23 09/29/22 History mL) subcutaneous pen injector (Victoza 2-Matt) lisinopril 5 mg tablet 5 mg PO HS 08/15/20 03/19/23 09/29/22 History metformin 500 mg tablet,extended 1,000 mg PO BID 08/15/20 03/19/23 09/29/22 History release 24 hr metoprolol succinate 25 mg 25 mg PO HS 08/15/20 03/19/23 09/29/22 History tablet,extended release 24 hr omeprazole 20 mg capsule,delayed 20 mg PO HS 08/15/20 03/19/23 09/29/22 History release testosterone cypionate 200 mg/mL 200 mg IM [id number] 08/15/20 03/19/23 Unknown History intramuscular oil Allergies Allergy/AdvReac Type Severity Reaction Status Date / Time No Known Allergies Allergy Verified 02/07/25 08:57 [facility] Past Medical History Medical History (Updated 03/26/25 @ 00:01 by Background Dadwayneon) Uses hearing aid Right knee pain Right knee DJD C2 cervical fracture Treated nonsurgically, patient wore a halo for 9 months. Paroxysmal atrial fibrillation Benign prostate hyperplasia Type 2 diabetes mellitus Gastroesophageal reflux disease Hypertension Hyperlipidemia Surgical History Surgical History History of vasectomy History of tonsillectomy History of cataract extraction with lens replacement History of cystoscopy (08/2020) with Urolift. History of transurethral resection of prostate (09/2022) Family History Family History Other Diabetes mellitus Family history of malignant neoplasm Social History Social History Social History: Surrogate medical decision maker: Becky Haddad, spouse. Code status: Full code. Smoking status: Never smoker Second hand tobacco smoke exposure: No Alcohol intake: never Alcohol use details: Rare alcohol use, perhaps 6 drinks a year. Substance use: never Substance use type: does not use Lack of Transportation: No Lack of Food: Never True Current Housing: I Have Housing Concerned About Future Housing: No Difficulty Paying Gas/Electric Bills: No Difficulty Paying for Meds: No Currently Unemployed: No Education: High School Diploma/GED Difficulty w/ Childcare or Family Care: No Living arrangements: with family Additional living arrangements comments: Lives with spouse in [place]. 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 HEAD: 4cm linear laceration across top of head as well as a 3cm curved skin flap on top of scalp EYES: Non injected, non icteric ENT: Nares clear, no rhinorrhea or epistaxis. Hard of hearing , hearing aids, can hear when spoken to slowly and at close range NECK: No rotational movement (baseline) CHEST: Speaking in full sentences. No respiratory distress. HEART: Regular rate and rhythm. . ABDOMEN: Soft, nondistended. EXTREMITIES: Normal range of motion. No lower extremity edema. SKIN: Warm, dry. Lacs as above. NEURO: No focal deficits. Alert and oriented. Answering questions. Following commands. Normal speech without aphasia or dysarthria. PSYCH: Normal mood and affect. Course Vital Signs Vital signs: Vital Signs Temperature 98.0 F 03/25/25 16:07 Pulse Rate 88 03/25/25 16:07 Respiratory Rate 16 03/25/25 16:07 Blood Pressure 143/85 H 03/25/25 16:07 Pulse Oximetry 99 03/25/25 16:07 Oxygen Delivery Room Air 03/25/25 16:07 Temperature 98.0 F 03/25/25 16:07 Pulse Rate 79 03/25/25 19:05 Respiratory Rate 18 03/25/25 19:05 Blood Pressure 150/89 H 03/25/25 19:05 Pulse Oximetry 99 03/25/25 19:05 Oxygen Delivery Room Air 03/25/25 16:07 Procedures Laceration Laceration 1: Date: 03/25/25 Time: 18:45 Site: scalp Size (cm): 4 Description: linear Depth: simple, single layer Local Anesthetic: none (LET gel) Pre-repair: wound explored and irrigated ====== Skin Level ====== Skin layer closed with: argenis Number of sutures: 12 ====== Subcutaneous Layer ====== ====== Muscle Layer ====== ====== Tendon Layer ====== Laceration 2: Date: 03/25/25 Time: 18:47 Site: scalp Size (cm): 3 Description: flap Depth: simple, single layer Local Anesthetic: none (LET gel) Pre-repair: wound explored and irrigated ====== Skin Level ====== Skin layer closed with: argenis Number of sutures: 7 ====== Subcutaneous Layer ====== ====== Muscle Layer ====== ====== Tendon Layer ====== MDM - Head Injury MDM Narrative Medical decision making narrative: Patient presents with a head injury when he lost his balance and a dresser struck his head. He has both a 4 cm laceration as well as a 3cm curved avulsed skin flap, both located at the top of his head. In the emergency department he is afebrile with vital signs notable for only very mild hypertension, acceptable. Denies being on anticoagulation (though EMR does state history of paroxysmal afib, no anticoagulation is seen in review of med list). He declines tetanus although he does not know his immunization status. LET gel applied then laceration repair(s) as above. Patient tolerates well. Discussed wound care and timeline for removal. Provided staple removal tool. Discharged in stable condition with Rx for OTC analgesic meds. Differential Diagnosis Differential diagnosis: Likely concussion without loss of consciousness, epidural hematoma, closed head injury, subarachnoid hematoma, subdural hematoma and other (laceration, avulsion/skin flap) Imaging Data Radiologist's impression: IMPRESSION: 1. Stable moderate nonspecific cerebral white matter disease, which likely represents chronic small vessel ischemic disease. IMPRESSION: 1. No fracture. 2. Mild cervical spondylosis. Discharge Plan Discharge Clinical Impression: Flap laceration of skin, Laceration of scalp, Cervical spondylosis, Head trauma Patient Disposition: Home Condition: Stable Instructions: Antibiotic Form, Laceration (ED), Staple Care (ED) Additional Instructions: No acute fracture, or bleeding in your brain. Acetaminophen/Tylenol (maximum 4000 mg per day) is safe to take with NSAIDs (ibuprofen/Motrin) for pain relief. You have a total of 19 argenis (12 + 7). These will need to be removed in 7 days. This can be done at your primary care physician's, at an urgent care or by returning to the ED. You declined tetanus immunization update. Return to the emergency department with any new or worsening concerns. Keep the area clean warm and dry. Warm soapy water is fine. No further use of hydrogen peroxide is needed. Patient Language: Slovak Prescriptions: New ibuprofen 600 mg tablet 600 mg PO TID PRN (Reason: pain) Qty: 30 0RF acetaminophen 500 mg capsule 1,000 mg PO Q6H PRN (Reason: pain) Qty: 30 0RF No Action cyclobenzaprine 10 mg Tablet 10 mg PO Q8HR PRN (Reason: Muscle Spasm) 2 Days Qty: 6 0RF hydrocodone-acetaminophen 5-325 mg Tablet 1 tablet PO Q6H PRN (Reason: Pain Rated 4-6) 2 Days Qty: 8 0RF lidocaine [Lidoderm] 5 % Adhesive Patch,Medicated 1 patch transdermal DAILY PRN (Reason: pain) 30 Days Qty: 30 0RF acetaminophen [Acetaminophen Extra Strength] 500 mg tablet 500 mg PO Q6H PRN (Reason: pain (scale score 1-3)) Qty: 30 0RF Rx Instructions: do not exceed 4 grams of acetaminophen in one day from all sources (norco has acetaminophen) gabapentin 300 mg capsule 300 mg PO HS omeprazole 20 mg capsule,delayed release(DR/EC) 20 mg PO HS lisinopril 5 mg tablet 5 mg PO HS metoprolol succinate 25 mg tablet extended release 24 hr 25 mg PO HS testosterone cypionate 200 mg/mL oil 200 mg IM [id number] Patient Comments: 03/18/23 metformin 500 mg tablet extended release 24 hr 1,000 mg PO BID eszopiclone 3 mg tablet 3 mg PO HS Victoza 2-Matt 0.6 mg/0.1 mL (18 mg/3 mL) pen injector 0.6 mg SUBCUT QAM Jardiance 25 mg tablet 25 mg PO HS Follow-up/Referrals: Taco,Anuradha Preciado MD [Primary Care Provider] Time of Disposition: 18:55
[2025-03-25] MEDS: HYDROcodone/acetaminophen (*CRX) 5-325 MG TABLET 1 TAB PO (17:47)
[2025-03-25] MEDS: LIDOCAINE, EPINEPHRINE, TETRACAINE VISCOUS SOLN 3 ML TOPICAL (17:48)
--- OUTSIDE RECORDS SUMMARY | 2025-03-25 18:28 | XMS_ITS | Clinical Summary ---
Author Organization [facility] Building [address] Address [address] [place] [address] Care Team Providers Care Cone Runner Name Role Phone Anuradha España MD Primary Care Provider [phone] Erika Rebolledo SHIFT BOSS Unavailable Amilcar Parsons PhD Unavailable Allergies No [...] Encounters Date Type Department Care Team Description 03/25/2025 7:55 AM CDT Hospital Encounter [facility] [place] Outpatient [address] [address] Right knee pain, unspecified chronicity 12/31/2024 8:30 AM CDT [facility] Visit [facility] [address] [place] [phone] Charlotte Soto MD Restless legs syndrome (RLS) (Primary Dx); New onset of headaches after age 50 from Last 3 Months Immunizations Immunization Administration Dates Next Due Influenza, Trivalent, IM (MDV) 04/10/2012 Surgical History Surgery Date Site/Laterality Comments [...] on file Legal Sex Male 10:19 PM COMMODITIES BROKER Gender Identity Not on file Sexual Orientation [...] 08/17/2018, 07/02/2002, 05/06/1998 Covid-19 Vaccine (3 - 2024-2 6 season) 2025 09/16/2020, 08/19/2020 Influenza Vaccine (#1) 2025 , [...] Completed 019, 07/13/2016, 05/06/1998, Additional history exists Medical Devices Implanted Type Area Commercial Kitchen Service Technician Device Identifier Shelf Expiration Date Model / Serial / Lot Other - See Comments Other - see comments Arm Procedures Procedure Name Priority Date/Time Associated Diagnosis Comments MRI KNEE RIGHT WO CONTRAST Schedule Routine, Read Routine (OP Routine) 03/25/2025 8:43 AM CDT Right knee pain, unspecified chronicity COLONOSCOPY 08/21/2012 12:00 AM COMMODITIES BROKER from Last 3 Months or Most Recently Relevant to Health Maintenance Results * MRI Knee Right WO Contrast [...] - Electronically signed by Juan Olsen M.D. MF T: Report ID: [id number] Reading Location: [id number] Procedure Note Juan Olsen MD - 03/25/2025 [...] by Juan Olsen M.D. T: Report ID: [id number] Reading Location: [id number] us Tomasa Almanza NP IMG MRI PROCEDURES Final R esult * COLONOSCOPY (08/21/2012 12:00 AM COMMODITIES BROKER) Anatomical Region Laterality Modality Other Narrative 08/21/2012 12:00 AM COMMODITIES BROKER Ordered by an unspecified provider. Procedure Note Provider, MD Laurent - 08/21/2012 12:00 AM CST PROCEDURE REPORT Patient: LETY HADDAD Account: [id number] Room No: : 1945 Patient Type: SDS Attend.: Anjum Vinson M.D. Admit Date: 08/21/2012 Dict.: Anjum Vinson M.D. Disch. Date: NAME OF PROCEDURE: Colonoscopy. DATE OF PROCEDURE 08/21/2012 HISTORY A 66-year-old male with blood in stool, prior history of colonic polyps. PHYSICAL EXAMINATION A well-developed male. Lungs are clear. Cardiovascular exam isunremarkable. PROCEDURE Colonoscopy was performed with the [employer] video endoscope. On digitalexam he has grade [...] Anjum Vinson MD On 08/23/2012 04:40:18 PM us Historical Provider ENDOSCOPY PROCEDURES Shelbi l Result from Last 3 Months or Most Recently Relevant to Health Maintenance Insurance [employer] Member Subscriber Plan / Payer (Ef fective 2016-Present) Name:LETY HADDAD Relation to Subscriber:Self Name:Lety Haddad Payer ID:[id number] (NAIC) Type: Address: [place] [id number] [employer] Member Subscriber Plan / Payer (Ef fective 2017-Present) Name:Lety Haddad Relation to Subscriber:Self Name:Lety Haddad Payer ID:[id number] (NAIC) Type: Address: [place] [id number] [facility] MEDICARE ADVANTAGE FOR LIFE AETNA MEDICARE Care Teams Cone Runner Relationship Specialty Start Date End Date Anuradha España MD PCP - General 08/08/12 Erika Rebolledo, SHIFT BOSS [address] [address] Speech Language Pathologist Speech Therapy 12/12/17 Amilcar Parsons, PhD [address] [address] Referring Physician Speech Therapy 01/16/18
--- OUTSIDE RECORDS SUMMARY | 2025-03-25 18:28 | XMS_ITS | Encounter Summary ---
Author Organization [facility] Address [facility] [place] [place] [address] Care Team Providers Care Hospital Director Name Role Phone Anuradha España DO Primary Care Provider Anuradha España DO Unavailable Anuradha España DO Unavailable [phone] Encounter Details Date Type Department Care Team (Late st Contact Info) Description 03/07/2018 Abstract [facility] Family Medicine - [place] [address], [address] [place] [id number] Anuradha España DO [address] [place] [address] Social History Tobacco Use Types Packs/Day Years Used Date Smoking Tobacco: Never Assessed Sex and Gender Information Value Date Recorded Sex Assigned at Male 08/06/2024 2:21 PM SALES ADMINISTRATION MANAGER Legal Sex Male 4:12 PM CDT Gender Identity Male 08/06/2024 2:21 PM SALES ADMINISTRATION MANAGER Sexual Orientation Choose not to disclose 2024 2:21 PM SALES ADMINISTRATION MANAGER documented as of this encounter Plan of Treatment Not on file documented as of this encounter Visit Diagnoses Not on filedocumented in this encounter Care Teams Hospital Director Relationship Specialty Start Date End Date Anuradha España DO [address] [place] [address] PCP - General 12/08/16 Anuradha España DO [address] [place] [address] PCP - Med Group - C Attributed Provider 09/08/18 01/24/19 Anuradha España DO [address] [place] [address] PCP - Med Group - C Attributed Provider 05/15/19 07/10/21 documented as of this encounter
--- OUTSIDE RECORDS SUMMARY | 2025-03-25 18:28 | XMS_ITS | Encounter Summary ---
Author Organization [facility] Address [address] [place] [address] Care Team Providers Care Manager Ob Name Role Phone Anuradha España DO Primary Care Provider [phone] Anuradha España DO Unavailable Encounter Details Date Type Department Care Team (Late st Contact Info) Description 08/26/2020 Therapy Plan [facility] Outpatient Therapy [place], [place] [id number] Reyna Carlson, PT [place], [place] [id number] Social History Tobacco Use Types Packs/Day Years Used Date Smoking Tobacco: Never Smokeless Tobacco: Never Alcohol Use Standard Drinks/Week Comments Yes 0 (1 standard drink = 0.6 oz pur e alcohol) social PHQ-2 Answer Date Recorded PHQ-2 Score 0 06/11/2019 Sex and Gender Information Value Date Recorded Sex Assigned at Male 08/06/2024 2:21 PM SPREADER Legal Sex Male 4:12 PM CDT Gender Identity Male 08/06/2024 2:21 PM SPREADER Sexual Orientation Choose not to disclose 2024 2:21 PM SPREADER COVID-19 Exposure Response Date Recorded In the last month, have you been in contact with someone who was confirmed or suspected to have Coronavirus / COVID-19? No / Unsure 08/14/2020 10:57 AM SPREADER documented as of this encounter Plan of Treatment Not on file documented as of this encounter Visit Diagnoses Not on filedocumented in this encounter Care Teams Manager Ob Relationship Specialty Start Date End Date Anuradha España DO [address] [place] [address] PCP - General 12/08/16 Anuradha España DO [address] [place] [address] PCP - Med Group - [facility] Attributed Provider 05/15/19 07/10/21 documented as of this encounter
--- OUTSIDE RECORDS SUMMARY | 2025-03-25 18:28 | XMS_ITS | Encounter Summary ---
Author Organization [facility] Address [address] [place] [address] Care Team Providers Care Case Resource Manager Name Role Phone Anuradha España DO Primary Care Provider Encounter Details Date Type Department Care Team (Late st Contact Info) Description 01/02/2025 [place] Message [address] [address] [facility] Provider Labs Social History Tobacco Use Types Packs/Day Years Used Date Smoking Tobacco: Never Passive Smoke Exposure: Never Smokeless Tobacco: Never Alcohol Use Standard Drinks/Week Comments Yes 0 (1 standard drink = 0.6 oz pur e alcohol) social PHQ-2 Answer Date Recorded Patient Health Questionnaire-2 Score 0 08/06/2024 Sex and Gender Information Value Date Recorded Sex Assigned at Male 08/06/2024 2:21 PM DIPLOMA MEDICAL ASSISTANT Legal Sex Male 4:12 PM CDT Gender Identity Male 08/06/2024 2:21 PM DIPLOMA MEDICAL ASSISTANT Sexual Orientation Choose not to disclose 2024 2:21 PM DIPLOMA MEDICAL ASSISTANT 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
--- OUTSIDE RECORDS SUMMARY | 2025-03-25 18:28 | XMS_ITS | Clinical Summary ---
Author Organization [facility] / [facility] Address [address] [place] [id number] Care Team Providers Care Business Broker Name Role Phone Ze España DO Primary Care Provider [phone] Allergies No known active allergies Medications testosterone cypionate 200 MG/ML injection Inject 1 mL (200 mg total) into the muscle. 12/21/19 15 Active Insulin Pen Needle 32G X 4 MM Misc by Other route daily. 06/17/20 15 Active Glucose Blood test stripIndications :Type 2 diabetes mellitus with diabetic nephropathy, without long-term current use of insulin ([facility]) 1 strip by Other route daily. Hyper and hypoglycemia 200 strip 3 12/09/19 22 Active gabapentin (NEURONTIN) 300 MG capsule Take 2 capsules (600 mg total) by mouth nightly. Active Vitamin D3 (CHOLECALCIFEROL ) 50 mcg tablet 08/19/19 24 Active tamsulosin (FLOMAX) 0.4 MG Cap Take 1 capsule (0.4 mg total) by mouth daily. 08/19/19 24 Active Blood Glucose Monitoring Suppl (ONETOUCH VERIO FLEX SYSTEM) w/Device KitIndications:T ype 2 diabetes mellitus with diabetic nephropathy, without long-term current use of insulin ([facility]) USE TO CHECK SUGARS TWICE DAILY 1 kit 10/12/19 24 Active Glucose Blood (ONETOUCH VERIO) test stripIndications :Type 2 diabetes mellitus with diabetic nephropathy, without long-term current use of insulin ([facility]) USE DIRECTED TO TEST BLOOD SUGAR TWO (2) TO THREE (3) TIMES a DAY WITH HYPOGLYCEMIA 200 strip 1 10/12/19 24 Active Lancets MiscIndications: Type 2 diabetes mellitus with diabetic nephropathy, without long-term current use of insulin ([facility]) Use as directed to test blood sugar TID 100 each 3 10/12/19 24 Active sildenafil (VIAGRA) 100 MG tabletIndication s:Erectile dysfunction of nonorganic origin Take 1 tablet (100 mg total) by mouth daily as needed. 160 tablet 05/21/20 24 Active omeprazole (PRILOSEC) 20 MG capsuleIndicatio ns:Gastroesophag eal reflux disease without esophagitis TAKE 1 CAPSULE BY MOUTH EVERY DAY 90 capsule 3 07/02/20 24 Active Eszopiclone 3 MG TabIndications:P rimary insomnia TAKE 1 TABLET BY MOUTH EVERY NIGHT AT BEDTIME NEEDED 30 tablet 01/04/20 25 Active liraglutide (VICTOZA) 18 MG/3ML injectionIndicat ions:Type 2 diabetes mellitus with diabetic nephropathy, without long-term current use of insulin ([facility]) ADMINISTER 1.2 MG UNDER THE SKIN DAILY FOR DIABETES 6 mL 1 01/29/20 25 Active JARDIANCE 25 MG tabletIndication s:Type 2 diabetes mellitus with diabetic nephropathy, without long-term current use of insulin ([facility]) TAKE 1 TABLET BY MOUTH DAILY. REPLACES FARXIGA 90 tablet 1 02/02/20 25 Active Continuous Glucose Sensor (FREESTYLE SERINA 3 SENSOR) MiscIndications: Type 2 diabetes mellitus with diabetic nephropathy, without long-term current use of insulin ([facility]) USE DIRECTED EVERY 14 DAYS 2 each 3 02/20/20 25 Active Plecanatide (TRULANCE) 3 MG TabIndications:C hronic idiopathic constipation Take 3 mg by mouth daily. 30 tablet 1 03/04/20 25 Active lisinopril (PRINIVIL) 2.5 MG tabletIndication s:Type 2 diabetes mellitus with diabetic nephropathy, without long-term current use of insulin ([facility]) Take 1 tablet (2.5 mg total) by mouth daily. 90 tablet 3 03/21/20 25 Active DUTASTERIDE 0.5 MG capsuleIndicatio ns:Benign enlargement of prostate TAKE ONE CAPSULE BY MOUTH DAILY 90 capsule 3 01/21/20 22 025 Discontin ued(Thera py completed ) metoprolol succinate ER (TOPROL-XL) 50 MG 24 hr tablet Take 0.5 tablets (25 mg total) by mouth daily. 08/19/19 24 025 Discontin ued(Thera py completed ) atorvastatin (LIPITOR) 20 MG tabletIndication s:Type 2 diabetes mellitus with diabetic nephropathy, without long-term current use of insulin ([facility]),Moderat e dementia without behavioral disturbance, psychotic disturbance, mood disturbance, or anxiety, unspecified dementia type ([facility]) Take 1 tablet (20 mg total) by mouth nightly at bedtime. 90 tablet 3 10/12/19 24 025 Discontin ued(Thera py completed ) lisinopril (PRINIVIL) 2.5 MG tabletIndication s:Type 2 diabetes mellitus with diabetic nephropathy, without long-term current use of insulin ([facility]) TAKE 2 TABLETS(5 MG) BY MOUTH DAILY 90 tablet 3 01/22/20 25 025 Discontin ued(Reord er) Active Problems Problem Noted Date Diagnosed Date Type 2 diabetes mellitus wit h diabetic nephropathy, without long-term current use of insulin ([facility]) 08/06/2024 Osteoarthritis of spine with radiculopathy, lumb ar region 07/27/2023 Moderate episode of recurrent major depressive d isorder 02/06/2022 Cerumen in auditory canal on examination 021 Occipital neuralgia of left side 03/21/2019 Atrial ectopy 09/28/2017 Unsteady gait 04/06/2017 Osteopenia 04/05/2017 Arthritis of right hip 11/15/2016 Tremor 10/07/2016 Restless legs syndrome 03/24/2016 Gastroesophageal reflux disease 08/06/2015 Dysphonia 03/18/2015 Laryngeal spasm 03/18/2015 Erectile dysfunction of nonorganic origin 2014 Thoracic spine pain 04/01/2014 Fatigue 11/20/2013 Mild vitamin D deficiency 11/20/2013 Moderate dementia without be havioral disturbance, psychotic disturbance, mood disturbance, or anxiety, unspecified dementia type 08/03/2013 Vertigo 08/03/2013 Overview (06/21/2018): Overview: Vertigo Insomnia 05/29/2012 Benign prostatic hyperplasia 04/20/2012 Diabetes mellitus ([facility]) 04/20/2012 Hyperlipidemia 04/20/2012 Hypertension 04/20/2012 Dizziness 04/05/2011 Closed fracture of second ce rvical vertebra ([facility]) 11/02/2010 Encounters Date Type Department Care Team Description 03/21/2025 8:40 AM CDT Office Visit [facility] [address], [address] [place] [address] [phone] Ze España DO Weight Problem (Patient here today for losing weight over the last year. He is having GI problems. ) 03/21/2025 Travel 03/20/2025 Telephone [facility] [address], [address] [place] [address] [phone] Ze España DO Lab Results 03/04/2025 11:20 AM CDT Office Visit [facility] [address], [address] [place] [phone] Ze España DO Constipation (Pt is having constipation issues) 03/04/2025 Travel 01/04/2025 Telephone [facility] [address], [address] [place] [address] [phone] Ze España DO Prior Authorization (PA for Eszopicolone) 01/02/2025 [employer] Message [address] [place] [id number] Ck, [facility] Provider Labs 01/02/2025 Patient Outreach [facility] [address], [address] [place] [address] [phone] Gist, Terenia L, MA Other ([employer]ET[employer]) from Last 3 Months Immunizations Immunization Administration Dates Next Due Fluzone 6 Months+ Quad (0.5 mL Prefilled Syringe) 05/19/2021,04/04/2020,03/28/2019 Influenza (Generic) 05/17/2013,04/10/2012 Influenza Adult (Generic) 03/16/2018,,03/24/2016,2014,04/01/2014 MODERNA COVID-19 (12+) MRNA, LNP-S, PF, 100 MCG/ 0.5 ML DOSE 09/16/2020,08/19/2020 Pneumococcal (Generic) 05/06/1998 Pneumococcal (Pneumovax 23) 08/17/2018 Pneumococcal (Prevnar 13) 07/13/2016 Td (TDVAX) 08/17/2018,07/02/2002 Td, Adsorbed, Preservative F ree, Adult Use, Lf Unspecified 05/06/1998 Zoster (Zostavax) 511[address] Unt/0.65Ml 06/07/2012 Family History Medical History Relation Comments Diabetes Brother COPD Father Cancer Father Stroke heart att ack Diabetes Father Heart Attack Father Heart Disease Father Hyperlipidemia Father Hypertension Father Peripheral vascular disease Father Stroke Father Aneurysm Mother AAA Arthritis Mother COPD Mother Heart Attack Mother Diabetes Sister 1 Diabetes Sister 2 Relation Status Comments Brother Father Mother Sister 1 Sister 2 Social History Tobacco Use Types Packs/Day Years Used Date Smoking Tobacco: Never Passive Smoke Exposure: Never Smokeless Tobacco: Never Tobacco Cessation:Counseling Given: No Alcohol Use Standard Drinks/Week Comments Yes 0 (1 standard drink = 0.6 oz pur e alcohol) social PHQ-2 Answer Date Recorded Patient Health Questionnaire-2 Score 0 08/06/2024 Sex and Gender Information Value Date Recorded Sex Assigned at Male 08/06/2024 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 Sex Male 4:12 PM CDT Gender Identity Male 08/06/2024 2:21 PM [employer]GER Sexual Orientation Choose not to disclose 2024 2:21 PM [employer] C[employer]GER 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 on file Not on file Last Filed Vital Signs Vital Sign Reading Time Taken Comments Blood Pressure 138/80 03/21/2025 8:26 AM CDT Pulse 69 03/21/2025 8:26 AM CDT Temperature 36.4 C (97.6 F) 03/21/2025 8:26 AM CDT Respiratory Rate 18 03/21/2025 8:26 AM CDT Oxygen Saturation 98% 03/21/2025 8:26 AM CDT Inhaled Oxygen Concentration - - Weight 71.7 kg (158 lb) 03/21/2025 8:26 AM CDT Height 177.8 cm (5' 10) 05/22/2024 10:54 AM [employer] C[employer]GER Body Mass Index 22.67 05/22/2024 10:54 AM [employer] C[employer]GER Plan of Treatment Health Maintenance Due Date Last Done Comments Kidney Health Evaluation 1945 Diabetes: Retinopathy Eye Exam 1964 Annual Medicare Wellness Visit 2011 Zoster Vaccines (2 of 3) 08/02/2012 06/07/2012 RSV Immunization or 60+ Years (1 - 1-dose 75+ series) 2021 COVID-19 Vaccine (3 - 2024- season) 2025 09/16/2020, 08/19/2020 Hemoglobin A1C 09/04/2025 03/04/2025, 08/2 01/2024, 10/12/2023, Additional history exists Lipid Panel 03/12/2026 03/12/2025, 04/0 09/2023, 12/03/2020, Additional history exists DTaP, Tdap and Td Vaccines (1 - Tdap) 08/17/2028 08/17/2018, 07/02/2002, 05/06/1998 Postponed from 08/18/2018 (Per Provider Recommendation) Hepatitis C Completed 12/08/2016, 12/08/2016 Pneumococcal Vaccine: 50+ Years Completed 08/17/2018, 07/13/2016 AAA SCREENING Completed 01/30/2021, 09/25/2015 Colorectal Cancer Screening Colonoscopy (10 Years) Discontinued 03/02/2021, 12/06/2018, 08/21/2012 PHQ-2 (Physician [place]) Completed 08/06/2024 Meningococcal B Vaccine Aged Out No l onger eligible based on patient's age to complete this topic Meningococcal Vaccine Aged Out No javier brooke eligible based on patient's age to complete this topic RSV Immunizations Under 20 Months Aged Out No longer eligible based on patient's age to complete this topic Procedures Procedure Name Priority Date/Time Associated Diagnosis Comments CBC W/ MANUAL DIFF (OUTSIDE) Routine 03/12/2025 CMP (OUTSIDE LAB) Routine 03/12/2025 LIPID PANEL (OUTSIDE LAB) Routine 03/12/2025 TSH W/REFLEX Routine 03/12/2025 VITAMIN D 25OH (OUTSIDE LAB) Routine 03/12/2025 COLLECT.CAPILLARY (FNGR,HEEL,EAR) Routine 03/04/2025 11:14 AM CDT Type 2 diabetes mellitus with diabetic nephropathy, without long-term current use of insulin ([facility]) HEMOGLOBIN, GLYCOSYLATED Routine 03/04/2025 Type 2 diabetes mellitus with diabetic nephropathy, without long-term current use of insulin ([facility]) COLONOSCOPY GENERIC (SCAN ORDER) 03/02/2021 CT ABD+PEL W CON Routine 01/30/2021 3:39 PM CDT Weight loss, unintentional HEPATITIS C ANTIBODY Routine 12/08/2016 10:18 AM CDT from Last 3 Months or Most Recently Relevant to Health Maintenance Results * LIPID PANEL (OUTSIDE LAB) (03/12/2025) CHOLESTEROL 125 TRIGLYCERIDES 62 HDL 37 LDL (CALCULATED) 64 03/12/2025 us Default History Genericprovider LAB-OUTSIDE/ABST RACTED Final Result * TSH W/REFLEX (03/12/2025) TSH 2.710 03/12/2025 us Default History Genericprovider LABORATORY Final Result * VITAMIN D 25OH (OUTSIDE LAB) (03/12/2025) VITAMIN D 25 HYDROXY S/P/B 62.7 03/12/2025 us Default History Genericprovider LAB-OUTSIDE/ABST RACTED Final Result * CBC W/ MANUAL DIFF (OUTSIDE) (03/12/2025) WBC 5.8 RBC 4.98 HGB 15.1 HCT 47.1 MCV 94.6 MCH 30.3 MCHC 32.1 RDW 14.6 PLT 226 MPV 9.9 NEUTROPHILS % 56.6 LYMPHOCYTES % 27.4 MONOCYTES % 13.1 EOSINOPHILS % 1.7 BASOPHILS % 0.7 ABS. NEUTROPHILS 3.3 ABS. LYMPHOCYTES 1.59 ABS. MONOCYTES 0.8 ABS. EOSINOPHILS 0.1 ABS. BASOPHILS 0.0 IMMATURE GRANS % 0.5 ABS. IMMATURE GRANULOCYTES 0.03 03/12/2025 Default History Genericprovider LABORATORY Final Result * CMP (OUTSIDE LAB) (03/12/2025) SODIUM S/P/B 136 POTASSIUM S/P/B 4.9 CHLORIDE S/P/B 101 CO2 28 BUN 24 CREATININE S/P/B 1.16 0.7 - 1.3 EGFR NON-AFR. AMER. >60 <=90 CALCIUM S/P/B 9.4 GLUCOSE 121 mg/dL TOTAL PROTEIN S/P/B 6.8 ALBUMIN S/P/B 4.2 3.5 - 5.0 AST 25 ALT 16 ALKALINE PHOSPHATASE S/P/B 55 BILIRUBIN TOTAL S/P/B 0.7 03/12/2025 Default History Genericprovider LAB-OUTSIDE/ABST RACTED Final Result * HEMOGLOBIN, GLYCOSYLATED (03/04/2025) HGB A1C 6.5 % MG-N [facility] 03/04/2025 Ze España DO LABORATORY Final Result MG[facility] [address] [place] [id number], * COLONOSCOPY GENERIC (SCAN ORDER) (03/02/2021) 03/02/2021 us [facility] Scanned SCANNING Final Resu lt * CT ABD+PEL W CON (01/30/2021 3:39 PM CDT) Anatomical Region Laterality Modality Abdomen Computed Tomogra phy 01/30/2021 6:43 PM CDT Impressions 01/30/2021 6:50 PM CDT IMPRESSION: 1. No clear explanation for the patient's unintended weight loss. No free fluid or free air. No suspicious lesion. 2. Appendix normal. 3. Scattered small bowel wall thickening on the left side of the abdomen could be normal variation or related to enteritis. Clinical follow-up recommended. 4. Moderate pancreatic atrophy. 5. Diffuse hepatic steatosis. 6. Sigmoid diverticulosis without evidence of acute diverticulitis. 7. Air within the urinary bladder lumen is nonspecific, possibly related to recent instrumentation. Infection not excluded. No signs of fistula. Referred By: ZE ESPAÑA Interpreted By: Gilberto Rudolph MD, 01/30/2021 6:43 PM Narrative 01/30/2021 6:50 PM CDT EXAMINATION: CT ABDOMEN PELVIS WITH CONTRAST EXAM DATE: 01/30/2021 3:21 PM REASON FOR EXAM: Weight loss, unintended COMPARISON: None TECHNIQUE: Axial images through the abdomen and pelvis after injection of 100 mL Isovue-370. No enteric contrast. Dose lowering technique was used for this study which may include, but is not limited to, dose reduction techniques, automated exposure control, use of iterative reconstruction and ALARA (As low As Reasonably Achievable)/Image Gently techniques. FINDINGS: Adrenals unremarkable. There are 2 low-density lesions of the left kidney measuring 16 mm and 14 mm, with fluid density, compatible with Bosniak category 1 lesions. No hydronephrosis or suspicious lesion. Spleen unremarkable. Stomach and duodenum unremarkable. Moderate pancreatic atrophy. Gallbladder is collapsed. Liver: Diffuse hepatic steatosis. No evidence of intrahepatic biliary dilatation or mass. Portal vein patent. Scattered small bowel wall thickening in the left side of the abdomen, nonspecific but possibly related to enteritis. No free fluid or free air. No retroperitoneal lymphadenopathy. Large bowel: Sigmoid diverticulosis without evidence of acute diverticulitis. Appendix normal. Pelvis: Urinary bladder demonstrates air within the lumen. Otherwise unremarkable. Rectum unremarkable. Limited evaluation of the lower thorax is unremarkable. Bones: No suspicious skeletal lesion or fracture. Moderate diffuse degenerative changes of the spine. Procedure Note Gilberto Rudolph MD - 01/30/2021 EXAMINATION: CT ABDOMEN PELVIS WITH CONTRAST EXAM DATE: 01/30/2021 3:21 PM REASON FOR EXAM: Weight loss, unintended COMPARISON: None TECHNIQUE: Axial images through the abdomen and pelvis after injection of100 mL Isovue-370. No enteric contrast. Dose lowering technique was used for this study which may include, but isnot limited to, dose reduction techniques, automated exposure control, use of iterativereconstruction and ALARA (As low As Reasonably Achievable)/Image Gently techniques. FINDINGS: Adrenals unremarkable. There are 2 low-density lesions of the left kidney measuring 16 mm and 14mm, with fluid density, compatible with Bosniak category 1 lesions. No hydronephrosis or suspicious lesion. Spleen unremarkable. Stomach and duodenum unremarkable. Moderate pancreatic atrophy. Gallbladder is collapsed. Liver: Diffuse hepatic steatosis. No evidenceof intrahepatic biliary dilatation or mass. Portal vein patent. Scattered small bowel wall thickening in the left side of the abdomen,nonspecific but possibly related to enteritis. No free fluid or freeair. No retroperitoneal lymphadenopathy. Large bowel: Sigmoid diverticulosis without evidence of acutediverticulitis. Appendix normal. Pelvis: Urinary bladder demonstrates air within the lumen. Otherwiseunremarkable. Rectum unremarkable. Limited evaluation of the lower thorax is unremarkable. Bones: No suspicious skeletal lesion or fracture. Moderate diffusedegenerative changes of the spine. IMPRESSION: 1. No clear explanation for the patient's unintended weight loss. Nofree fluid or free air. No suspicious lesion. 2. Appendix normal. 3. Scattered small bowel wall thickening on the left side of the abdomencould be normal variation or related to enteritis. Clinical follow-uprecommended. 4. Moderate pancreatic atrophy. 5. Diffuse hepatic steatosis. 6. Sigmoid diverticulosis without evidence of acute diverticulitis. 7. Air within the urinary bladder lumen is nonspecific, possibly relatedto recent instrumentation. Infection not excluded. No signs offistula. Referred By: ZE ESPAÑA Interpreted By: Gilberto Rudolph MD, 01/30/2021 6:43 PM Ze España DO CT Final Result * HEPATITIS C ANTIBODY (12/08/2016 10:18 AM CDT) HEPATITIS C AB NON-REACTI VE NON-REACTI VE 12/09/2016 8:18 PM CDT [facility] Comment: TESTING PERFORMED AT [facility] [address] [place] [address] SERUM OR PLASMA SPECIMEN / Unknown 12/08/2016 10:18 AM CDT 12/08/2016 10:19 AM CDT us Generic Conversion Md [facility] Final R esult [facility] [address] [place] [address], [place] [phone] from Last 3 Months or Most Recently Relevant to Health Maintenance Insurance [employer] Care Teams Business Broker Relationship Specialty Start Date End Date Ze España DO [address] [place] [address] PCP - General 12/08/16
--- OUTSIDE RECORDS SUMMARY | 2025-03-25 18:28 | XMS_ITS | Clinical Summary ---
Author Organization [facility] Address [address] [address] Care Team Providers Care Systems Manager Name Role Phone Anuradha España Primary Care Provider [phone] Source Comments [facility],non-owned Affiliates and Associated Physician Practices is amultiple site organization consisting of ambulatory clinics and hospital sitesin [place], [place], [place] and [place]. This disclosure is being madepursuant to the Care Everywhere program and may not contain all information available regarding this patient. 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
--- OUTSIDE RECORDS SUMMARY | 2025-03-25 18:28 | XMS_ITS | Encounter Summary ---
Author Organization [facility] Address [address] [place] [address] Care Team Providers Care Orchard Pruner Name Role Phone Anuradha España DO Primary Care Provider [phone] Reason for Visit * Reason Onset Date Comments Lab Results 03/20/2025 Encounter Details Date Type Department Care Team (Late st Contact Info) Description 03/20/2025 Telephone [facility] Family Medicine - [place] [address], [address] [place] [phone] Anuradha España DO [address] [place], [place] [phone] Lab Results Social History Tobacco Use Types Packs/Day Years Used Date Smoking Tobacco: Never Passive Smoke Exposure: Never Smokeless Tobacco: Never Alcohol Use Standard Drinks/Week Comments Yes 0 (1 standard drink = 0.6 oz pur e alcohol) social PHQ-2 Answer Date Recorded Patient Health Questionnaire-2 Score 0 08/06/2024 Sex and Gender Information Value Date Recorded Sex Assigned at Male 08/06/2024 2:21 PM TECHNOLOGY METHODOLOGY CONSULTANT Legal Sex Male 4:12 PM CDT Gender Identity Male 08/06/2024 2:21 PM TECHNOLOGY METHODOLOGY CONSULTANT Sexual Orientation Choose not to disclose 2024 2:21 PM TECHNOLOGY METHODOLOGY 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 España.Patient verbalized understanding of results and agrees to recommendations. He inquires about how toimprove kidney labs. Advised to take lisinopril as prescribed, avoid NSAIDs, keep glucose and BP well controlled and maintain hydration. He VU and agrees. Report he has already resumed Lisinopril. Opportunity given for all questions to be answered, no further needs voiced at this time. * Ashly Brown RN - 03/21/2025 2:20 PM CDTAddended by: ASHLY BROWN on: 03/21/2025 02:20 PM Modules accepted: Orders * Ashly Brown RN - 03/21/2025 1:47 PM CDT Received copy of lab results from [facility] lab. Per Dr España: Please call, blood counts normal, renal and liver stable, cholesterol and thyroid good. We talked and I still want him to resume his lisinopril 2.5mg. Attempted to contact patient regarding lab results, no answer. Left message on patient's voicemail requesting a return call. * Kiana Fields MA - 03/21/2025 8:53 AM CDT Krystal called [facility] and spoke with Tashia. She will get them sent over to us. * Lesley Valverde - 03/20/2025 2:11 PM CDT Patient had his labs drawn at [facility] on 03/15/25. Have we received the results? CB# is [phone] documented in this encounter Plan of Treatment Not on file documented as of this encounter Procedures Procedure Name Priority Date/Time Associated Diagnosis Comments LIPID PANEL (OUTSIDE LAB) Routine 03/12/2025 TSH W/REFLEX Routine 03/12/2025 VITAMIN D 25OH (OUTSIDE LAB) Routine 03/12/2025 CBC W/ MANUAL DIFF (OUTSIDE) Routine 03/12/2025 CMP (OUTSIDE LAB) Routine 03/12/2025 documented in this encounter Results * CBC W/ MANUAL DIFF (OUTSIDE) (03/12/2025) [...] % 0.5 ABS. IMMATURE GRANULOCYTES 0.03 03/12/2025 us Default History Genericprovider LABORATORY Final [...] S/P/B 55 BILIRUBIN TOTAL S/P/B 0.7 03/12/2025 us Default History Genericprovider LAB-OUTSIDE/ABST RACTED Final Result * LIPID PANEL (OUTSIDE LAB) (03/12/2025) CHOLESTEROL 125 TRIGLYCERIDES 62 HDL 37 LDL (CALCULATED) 64 03/12/2025 us Default History Genericprovider LAB-OUTSIDE/ABST RACTED Final Result * TSH W/REFLEX (03/12/2025) TSH 2.710 03/12/2025 us Default History Genericprovider LABORATORY Final Result * VITAMIN D 25OH (OUTSIDE LAB) (03/12/2025) VITAMIN D 25 HYDROXY S/P/B 62.7 03/12/2025 us Default History Genericprovider LAB-OUTSIDE/ABST RACTED Final Result documented in this encounter Visit Diagnoses Diagnosis Vitamin D deficiency Unspecified vitamin D deficiency Type 2 diabetes mellitus with diabetic nephropathy, without long-term current use of insulin ([facility]) documented in this encounter Additional Health Concerns Assessment Noted Time PHQ-9 Depression Total Score: 0 01/20/20 21 1:31 PM CDT documented as of this encounter Care Teams Orchard Pruner Relationship Specialty Start Date End Date Anuradha España DO [address] [place] [address] PCP - General 12/08/16 documented as of this encounter
--- NOTE | 2025-03-25 18:41 | PC.NURSE ---
Dr. Laurent at bedside with pt.
[2025-03-25 19:05] VITALS: BP 150/89; PULSE 79; RESP 18; O2SAT 99
--- OUTSIDE RECORDS SUMMARY | 2025-03-25 19:05 | XMS_ITS | Clinical Summary ---
Author Organization [facility] Address [address] [place] [address] Care Team Providers Care Reinforcement Maker Name Role Phone Anuradha España Primary Care Provider [phone] Source Comments [facility],non-owned Affiliates and Associated Physician Practices is amultiple site organization consisting of ambulatory clinics and hospital sitesin [place], [place], [place] and [place]. This disclosure is being madepursuant to the Care Everywhere program and may not contain all information available regarding this patient. Last updated 18.[facility] Allergies No known active allergies Medications * [...] on file Legal Sex Male 11:42 AM TRUST MANAGER Gender Identity Not on file Sexual Orientation [...] Insurance AETNA MEDICARE ADV AETNA Care Teams Reinforcement Maker Relationship Specialty Start Date End Date Anuradha España DO [address] [place], [place] [id number] PCP - General 10/25/22
--- OUTSIDE RECORDS SUMMARY | 2025-03-25 19:05 | XMS_ITS | Encounter Summary ---
Author Organization [facility] Address [address] [place] [address] Care Team Providers Care Stone Operator Name Role Phone Anuradha España DO Primary Care Provider [phone] Encounter Details Date Type Department Care Team (Late st Contact Info) Description 01/02/2025 [employer] Message [address] [phone] [place], [facility] Provider Labs Social History Tobacco Use Types Packs/Day Years Used Date Smoking Tobacco: Never Passive Smoke Exposure: Never Smokeless Tobacco: Never Alcohol Use Standard Drinks/Week Comments Yes 0 (1 standard drink = 0.6 oz pur e alcohol) social PHQ-2 Answer Date Recorded Patient Health Questionnaire-2 Score 0 08/06/2024 Sex and Gender Information Value Date Recorded Sex Assigned at Male 08/06/2024 2:21 PM OTOLARYNGOLOGIST Legal Sex Male 4:12 PM CDT Gender Identity Male 08/06/2024 2:21 PM OTOLARYNGOLOGIST Sexual Orientation Choose not to disclose 2024 2:21 PM OTOLARYNGOLOGIST Occupation Industry Job Start Date Job End [...] documented as of this encounter Care Teams Stone Operator Relationship Specialty Start Date End Date Anuradha España DO [address] [place] [address] PCP - General 12/08/16 documented as of this encounter
--- OUTSIDE RECORDS SUMMARY | 2025-03-25 19:05 | XMS_ITS | Encounter Summary ---
Author Organization [facility] Address [address] [place] [address] Care Team Providers Care Snowboarding Instructor Name Role Phone Anuradha España DO Primary Care Provider [phone] Anuradha España DO Unavailable [phone] Encounter Details Date Type Department Care Team (Late st Contact Info) Description 08/26/2020 Therapy Plan [facility] Outpatient Therapy [address] [place], [place] [phone] Reyna Carlson, PT [place], [place] [address] Social History Tobacco Use Types Packs/Day Years Used Date Smoking Tobacco: Never Smokeless Tobacco: Never Alcohol Use Standard Drinks/Week Comments Yes 0 (1 standard drink = 0.6 oz pur e alcohol) social PHQ-2 Answer Date Recorded PHQ-2 Score 0 06/11/2019 Sex and Gender Information Value Date Recorded Sex Assigned at Male 08/06/2024 2:21 PM SPONGE FISHERMAN Legal Sex Male 4:12 PM CDT Gender Identity Male 08/06/2024 2:21 PM SPONGE FISHERMAN Sexual Orientation Choose not to disclose 2024 2:21 PM SPONGE FISHERMAN COVID-19 Exposure Response Date Recorded In the last month, have you been in contact with someone who was confirmed or suspected to have Coronavirus / COVID-19? No / Unsure 08/14/2020 10:57 AM SPONGE FISHERMAN documented as of this encounter Plan of Treatment Not on file documented as of this encounter Visit Diagnoses Not on filedocumented in this encounter Care Teams Snowboarding Instructor Relationship Specialty Start Date End Date Anuradha España DO [address] [place] [address] PCP - General 12/08/16 Anuradha España DO [address] [place] [address] PCP - Med [facility] - [facility] Attributed Provider 05/15/19 07/10/21 documented as of this encounter
--- OUTSIDE RECORDS SUMMARY | 2025-03-25 19:06 | XMS_ITS | Encounter Summary ---
Author Organization [facility] Address [address] [place] [address] Care Team Providers Care Bonding Machine Setter Name Role Phone Anuradha España DO Primary Care Provider [phone] Reason for Visit * Reason Onset Date Comments Lab Results 03/20/2025 Encounter Details Date Type Department Care Team (Late st Contact Info) Description 03/20/[address] [facility] Family Medicine - [place] [address] [place] [phone] Anuradha España DO [address] [place], [place] [phone] Lab Results Social History Tobacco Use Types Packs/Day Years Used Date Smoking Tobacco: Never Passive Smoke Exposure: Never Smokeless Tobacco: Never Alcohol Use Standard Drinks/Week Comments Yes 0 (1 standard drink = 0.6 oz pur e alcohol) social PHQ-2 Answer Date Recorded Patient Health Questionnaire-2 Score 0 08/06/2024 Sex and Gender Information Value Date Recorded Sex Assigned at Male 08/06/2024 2:21 PM COLLEGE INTERN Legal Sex Male 4:12 PM CDT Gender Identity Male 08/06/2024 2:21 PM COLLEGE INTERN Sexual Orientation Choose not to disclose 2024 2:21 PM COLLEGE INTERN Occupation Industry Job Start Date Job End [...] CDT Received copy of lab results from [facility] lab. Per Dr España: Please call, blood counts normal, renal and liver stable, cholesterol and thyroid good. We talked and I still want him to resume his lisinopril 2.5mg. Attempted to contact patient regarding lab results, no answer. Left message on patient's voicemail requesting a return call. * Kiana Fields MA - 03/21/2025 8:53 AM CDT Krystal called [facility] and spoke with Tashia. She will get them sent over to us. * Lesley Valverde - 03/20/2025 2:11 PM CDT Patient had his labs drawn at [facility] on 03/15/25. Have we received the results? CB# is [phone] documented in this encounter Plan of Treatment [...] nephropathy, without long-term current use of insulin ([facility]) documented in this encounter Additional Health Concerns Assessment Noted Time PHQ-9 Depression Total Score: 0 01/20/20 21 1:31 PM CDT documented as of this encounter Care Teams Bonding Machine Setter Relationship Specialty Start Date End Date Anuradha España DO [address] [place] [address] PCP - General 12/08/16 documented as of this encounter
--- OUTSIDE RECORDS SUMMARY | 2025-03-25 19:06 | XMS_ITS | Clinical Summary ---
Author Organization [facility] Address [address] [place] [address] Care Team Providers Care Field Horticultural Specialty Grower Name Role Phone Anuradha España MD Primary Care Provider [phone] Erika Rebolledo LEARNING PROGRAM MANAGER Unavailable Amilcar Parsons PhD Unavailable Allergies [...] Description 03/25/2025 7:55 AM CDT Hospital Encounter [facility] Outpatient [address] [address] Right knee pain, unspecified chronicity 12/31/2024 8:30 AM CDT Office Visit [facility] [address] [facility] [facility] [address] [place] [phone] Charlotte Soto MD Restless legs syndrome [...] on file Legal Sex Male 10:19 PM SIEVE MAKER Gender Identity Not on file Sexual Orientation [...] history exists Medical Devices Implanted Type Area Armature Varnisher Device Identifier Shelf Expiration Date Model / Serial / Lot Other - See Comments Other - see comments Arm Procedures Procedure Name Priority Date/Time Associated Diagnosis Comments MRI KNEE RIGHT WO CONTRAST Schedule Routine, Read Routine (OP Routine) 03/25/2025 8:43 AM CDT Right knee pain, unspecified chronicity COLONOSCOPY 08/21/2012 12:00 AM SIEVE MAKER from Last 3 Months or Most Recently [...] Juan Olsen M.D. MF T: Report ID: [id number] Reading Location: [id number] Procedure Note Juan Olsen MD - 03/25/2025 [...] by Juan Olsen M.D. T: Report ID: [id number] Reading Location: [id number] us Tomasa Almanza NP IMG MRI PROCEDURES Final R esult * COLONOSCOPY (08/21/2012 12:00 AM SIEVE MAKER) Anatomical Region Laterality Modality Other Narrative 08/21/2012 12:00 AM SIEVE MAKER Ordered by an unspecified provider. Procedure Note Provider, MD Laurent - 08/21/2012 12:00 AM CST PROCEDURE REPORT Patient: LETY HADDAD Account: [id number] Room No: : 1945 Patient Type: SDS Attend.: Anjum Vinson M.D. Admit Date: 08/21/2012 Dict.: Anjum Vinson M.D. Disch. Date: NAME OF PROCEDURE: Colonoscopy. DATE OF PROCEDURE 08/21/2012 HISTORY A 66-year-old male with blood in stool, prior history of colonic polyps. PHYSICAL EXAMINATION A well-developed male. Lungs are clear. Cardiovascular exam isunremarkable. PROCEDURE Colonoscopy was performed with the [employer] video endoscope. On digitalexam he has grade [...] Hemorrhoidal disease, otherwise normal. Anjum Vinson M.D. DR/rosraio TD: 08/21/2012 12:12 CC: Dr. Anuradha Jiménez Authenticated by Anjum Vinson MD On 08/23/2012 04:40:18 PM us Historical Provider ENDOSCOPY PROCEDURES Shelbi l Result from Last 3 Months or Most Recently Relevant to Health Maintenance Insurance [employer] Member Subscriber Plan / Payer (Ef fective 2016-Present) Name:LETY HADDAD Relation to Subscriber:Self Name:Lety Haddad Payer ID:[id number] (NAIC) Type: Address: [place] [id number] [employer] Member Subscriber Plan / Payer (Ef fective 2017-Present) Name:Lety Haddad Relation to Subscriber:Self Name:Lety Haddad Payer ID:[id number] (NAIC) Type: Address: [place] [id number] [facility] MEDICARE ADVANTAGE FOR LIFE AETNA MEDICARE Care Teams Field Horticultural Specialty Grower Relationship Specialty Start Date End Date Anuradha España MD PCP - General 08/08/12 Erika Rebolledo, LEARNING PROGRAM MANAGER [address] [address] Speech Language Pathologist Speech Therapy 12/12/17 Amilcar Parsons, PhD [address] [address] Referring Physician Speech Therapy 01/16/18
--- OUTSIDE RECORDS SUMMARY | 2025-03-25 19:06 | XMS_ITS | Clinical Summary ---
Author Organization [facility] Address [address] [place] [address] Care Team Providers Care Coffee Taster Name Role Phone Ze España DO Primary Care Provider [phone] Allergies No known active allergies Medications testosterone cypionate 200 MG/ML injection Inject 1 mL (200 mg total) into the muscle. 12/21/19 15 Active Insulin Pen Needle 32G X 4 MM Misc by Other route daily. 06/17/20 15 Active Glucose Blood test stripIndications :Type 2 diabetes mellitus with diabetic nephropathy, without long-term current use of insulin ([facility]) 1 strip by Other route daily. Hyper [...] nephropathy, without long-term current use of insulin ([facility]) USE TO CHECK SUGARS TWICE DAILY 1 kit 10/12/19 24 Active Glucose Blood (ONETOUCH VERIO) test stripIndications :Type 2 diabetes mellitus with diabetic nephropathy, without long-term current use of insulin ([facility]) USE DIRECTED TO TEST BLOOD SUGAR TWO (2) TO THREE (3) TIMES a DAY WITH HYPOGLYCEMIA 200 strip 1 10/12/19 24 Active Lancets MiscIndications: Type 2 diabetes mellitus with diabetic nephropathy, without long-term current use of insulin ([facility]) Use as directed to test blood sugar [...] nephropathy, without long-term current use of insulin ([facility]) ADMINISTER 1.2 MG UNDER THE SKIN DAILY FOR DIABETES 6 mL 1 01/29/20 25 Active JARDIANCE 25 MG tabletIndication s:Type 2 diabetes mellitus with diabetic nephropathy, without long-term current use of insulin ([facility]) TAKE 1 TABLET BY MOUTH DAILY. REPLACES FARXIGA 90 tablet 1 02/02/20 25 Active Continuous Glucose Sensor (FREESTYLE SERINA 3 SENSOR) MiscIndications: Type 2 diabetes mellitus with diabetic nephropathy, without long-term current use of insulin ([facility]) USE DIRECTED EVERY 14 DAYS 2 each 3 02/20/20 25 Active Plecanatide (TRULANCE) 3 MG TabIndications:C hronic idiopathic constipation Take 3 mg by mouth daily. 30 tablet 1 03/04/20 25 Active lisinopril (PRINIVIL) 2.5 MG tabletIndication s:Type 2 diabetes mellitus with diabetic nephropathy, without long-term current use of insulin ([facility] HHS/HCC) Take 1 tablet (2.5 mg total) [...] nephropathy, without long-term current use of insulin ([facility]),Moderat e dementia without behavioral disturbance, psychotic disturbance, mood disturbance, or anxiety, unspecified dementia type ([facility]) Take 1 tablet (20 mg total) by mouth nightly at bedtime. 90 tablet 3 10/12/19 24 025 Discontin ued(Thera py completed ) lisinopril (PRINIVIL) 2.5 MG tabletIndication s:Type 2 diabetes mellitus with diabetic nephropathy, without long-term current use of insulin ([facility]) TAKE 2 TABLETS(5 MG) BY MOUTH DAILY 90 tablet 3 01/22/20 25 025 Discontin ued(Reord er) Active Problems Problem Noted Date Diagnosed Date Type 2 diabetes mellitus wit h diabetic nephropathy, without long-term current use of insulin ([facility]) 08/06/2024 Osteoarthritis of spine with radiculopathy, lumb [...] 05/29/2012 Benign prostatic hyperplasia 04/20/2012 Diabetes mellitus ([facility]) 04/20/2012 Hyperlipidemia 04/20/2012 Hypertension 04/20/2012 Dizziness 04/05/2011 Closed fracture of second ce rvical vertebra ([facility]) 11/02/2010 Encounters Date Type Department Care Team Description 03/21/2025 8:40 AM CDT Office Visit [facility] [address], [address] [place] [phone] Ze España DO Weight Problem (Patient here today for losing weight over the last year. He is having GI problems. ) 03/21/2025 Travel 03/20/2025 Telephone [facility] [address], [address] [place] [phone] Ze España DO Lab Results 03/04/2025 11:20 AM CDT Office Visit [facility] [address], [address] [place] [phone] Ze España DO Constipation (Pt is having constipation issues) 03/04/2025 Travel 01/04/2025 Telephone [facility] [address], [address] [place] [phone] Ze España DO Prior Authorization (PA for Eszopicolone) 01/02/2025 KeyOwner Message [facility] [address] [place] [phone] Ck, [facility] Provider Labs 01/02/2025 Patient Outreach [facility] [address], [address] [place] [phone] Gist, Terenia L, MA Other (AETNA) from [...] Adult Use, Lf Unspecified 05/06/1998 Zoster (Zostavax) [address] Unt/0.65Ml 06/07/2012 Family History Medical History Relation [...] Sex Assigned at Male 08/06/2024 2:21 PM DINKEY DISPATCHER Legal Sex Male 4:12 PM CDT Gender Identity Male 08/06/2024 2:21 PM DINKEY DISPATCHER Sexual Orientation Choose not to disclose 2024 2:21 PM DINKEY DISPATCHER Occupation Industry Job Start Date Job End [...] 177.8 cm (5' 10) 05/22/2024 10:54 AM DINKEY DISPATCHER Body Mass Index 22.67 05/22/2024 10:54 AM DINKEY DISPATCHER Plan of Treatment Health Maintenance Due Date [...] Years) Discontinued 03/02/2021, 12/06/2018, 08/21/2012 PHQ-2 ([facility]) Completed 08/06/2024 Meningococcal B Vaccine Aged Out [...] nephropathy, without long-term current use of insulin ([facility]/HCC) HEMOGLOBIN, GLYCOSYLATED Routine 03/04/2025 Type 2 diabetes mellitus with diabetic nephropathy, without long-term current use of insulin ([facility]) COLONOSCOPY GENERIC (SCAN ORDER) 03/02/2021 CT ABD+PEL [...] Ze España DO LABORATORY Final Result [facility] [address] [facility] [address] [place] [address], * COLONOSCOPY GENERIC (SCAN ORDER) (03/02/2021) 03/02/2021 [...] VE NON-REACTI VE 12/09/2016 8:18 PM CDT [facility] Comment: TESTING PERFORMED AT [facility] [address] [place] [address] SERUM OR PLASMA SPECIMEN / Unknown 12/08/2016 10:18 AM CDT 12/08/2016 10:19 AM CDT us Generic Conversion Md [facility] Final R esult [facility] [address] [place] [address], [place] [phone] from Last 3 Months or Most Recently Relevant to Health Maintenance Insurance [employer] AETNA Care Teams Coffee Taster Relationship Specialty Start Date End Date Ze España DO [address] [place] [address] PCP - General 12/08/16
--- OUTSIDE RECORDS SUMMARY | 2025-03-25 19:06 | XMS_ITS | Encounter Summary ---
Author Organization [facility] Address [facility] [place] [address] Care Team Providers Care Service Desk Agent Name Role Phone Anuradha España DO Primary Care Provider [phone] Anuradha España DO Unavailable Anuradha España DO Unavailable [phone] Encounter Details Date Type Department Care Team (Late st Contact Info) Description 03/07/2018 Abstract [facility] - [place] [address], [address] [place] [id number] Anuradha España DO [address] [place] [address] Social History Tobacco Use Types Packs/Day Years Used Date Smoking Tobacco: Never Assessed Sex and Gender Information Value Date Recorded Sex Assigned at Male 08/06/2024 2:21 PM .NET ARCHITECT Legal Sex Male 4:12 PM CDT Gender Identity Male 08/06/2024 2:21 PM .NET ARCHITECT Sexual Orientation Choose not to disclose 2024 2:21 PM .NET ARCHITECT documented as of this encounter Plan of Treatment Not on file documented as of this encounter Visit Diagnoses Not on filedocumented in this encounter Care Teams Service Desk Agent Relationship Specialty Start Date End Date Anuradha España DO [address] [place] [address] PCP - General 12/08/16 Anuradha España DO [address] [place] [address] PCP - [facility] - [facility] Attributed Provider 09/08/18 01/24/19 Anurahda España DO [address] [place] [address] PCP - [facility] Attributed Provider 05/15/19 07/10/21 documented as of this encounter
== END 2025-03-25 19:08 | disposition home or self-care (01) ==
PROVIDERS: Emergency Provider Student in an Organized Health Care Education/Training Program; PCP Family Medicine
DX: S01.01XA Laceration without foreign body of scalp, initial encounter (principal); M47.812 Spondylosis without myelopathy or radiculopathy, cervical region; I10 Essential (primary) hypertension; E78.5 Hyperlipidemia, unspecified; E11.9 Type 2 diabetes mellitus without complications; I48.0 Paroxysmal atrial fibrillation; X58.XXXA Exposure to other specified factors, initial encounter
CPT/HCPCS: 12002; 70450; 72125; 99284; A9270